=== PATIENT | male | born 1955 | race Caucasian/White ===

== ENCOUNTER → 2017-06-19 15:38 | Outpatient (REF) | payer MEDICARE, SELFPAY ==
[2017-06-19 19:25] LABS: Amphetamine/Metha Screen,Urine Negative ng/mL (<1000); Barbiturates Screen,Urine Negative ng/mL (<200); Benzodiazepines Screen,Urine Negative ng/mL (200); Cannabinoid Screen,Urine Negative ng/mL (<50); Cocaine Screen,Urine Negative ng/g (<300); Methadone Screen,Urine Negative ng/mL (<300); Opiate Screen,Urine Positive ng/mL (<300); Phencyclidine Screen,Urine Negative ng/mL (<25)
== END ==
LOC: LAB 15:38
PROVIDERS: Visit Provider Emergency Medicine
DX: Z79.899 Other long term (current) drug therapy (principal)
CPT/HCPCS: 80305

== ENCOUNTER → 2017-07-17 13:54 | Outpatient (CLI) | payer MEDICARE, SELFPAY ==
[2017-07-17 17:48] LABS: Amphetamine/Metha Screen,Urine Negative ng/mL (<1000); Barbiturates Screen,Urine Negative ng/mL (<200); Benzodiazepines Screen,Urine Negative ng/mL (200); Cannabinoid Screen,Urine Negative ng/mL (<50); Cocaine Screen,Urine Negative ng/g (<300); Methadone Screen,Urine Negative ng/mL (<300); Opiate Screen,Urine Positive ng/mL (<300); Phencyclidine Screen,Urine Negative ng/mL (<25)
== END ==
PROVIDERS: Visit Provider Emergency Medicine
DX: Z79.899 Other long term (current) drug therapy (principal)
CPT/HCPCS: 80305

== ENCOUNTER → 2017-08-14 13:36 | Outpatient (REF) | payer MEDICARE, SELFPAY ==
[2017-08-14 19:03] LABS: Amphetamine/Metha Screen,Urine Negative ng/mL (<1000); Barbiturates Screen,Urine Negative ng/mL (<200); Benzodiazepines Screen,Urine Negative ng/mL (200); Cannabinoid Screen,Urine Negative ng/mL (<50); Cocaine Screen,Urine Negative ng/g (<300); Methadone Screen,Urine Negative ng/mL (<300); Opiate Screen,Urine Positive ng/mL (<300); Phencyclidine Screen,Urine Negative ng/mL (<25)
== END ==
LOC: LAB 13:36
PROVIDERS: Visit Provider Emergency Medicine
DX: Z79.899 Other long term (current) drug therapy (principal)
CPT/HCPCS: 80305

== ENCOUNTER → 2017-09-11 14:58 | Outpatient (REF) | payer MEDICARE, SELFPAY ==
[2017-09-11 19:40] LABS: Amphetamine/Metha Screen,Urine Negative ng/mL (<1000); Barbiturates Screen,Urine Negative ng/mL (<200); Benzodiazepines Screen,Urine Negative ng/mL (200); Cannabinoid Screen,Urine Negative ng/mL (<50); Cocaine Screen,Urine Negative ng/g (<300); Methadone Screen,Urine Negative ng/mL (<300); Opiate Screen,Urine Negative ng/mL (<300); Phencyclidine Screen,Urine Negative ng/mL (<25)
== END ==
LOC: LAB 14:58
PROVIDERS: Visit Provider Emergency Medicine
DX: Z79.899 Other long term (current) drug therapy (principal)
CPT/HCPCS: 80305

== ENCOUNTER → 2017-10-09 08:01 | Outpatient (REF) | payer MEDICARE, SELFPAY ==
[2017-10-09 14:31] LABS: Amphetamine/Metha Screen,Urine Negative ng/mL (<1000); Barbiturates Screen,Urine Negative ng/mL (<200); Benzodiazepines Screen,Urine Negative ng/mL (200); Cannabinoid Screen,Urine Negative ng/mL (<50); Cocaine Screen,Urine Negative ng/g (<300); Methadone Screen,Urine Negative ng/mL (<300); Opiate Screen,Urine Negative ng/mL (<300); Phencyclidine Screen,Urine Negative ng/mL (<25)
== END ==
LOC: LAB 08:01
PROVIDERS: Visit Provider Emergency Medicine
DX: Z79.899 Other long term (current) drug therapy (principal)
CPT/HCPCS: 80305

== ENCOUNTER → 2017-10-29 11:34 | Outpatient (CLI) | payer MEDICARE, SELFPAY ==
--- NOTE | 2017-10-29 11:37 | MR_ITS ---
MR lumbar spine wo con, MR 3-d myelogram/MRCP HISTORY: Low back pain. ITS.REASON: Back Pain ORDERING PHYSICIAN: Adriel Castillo MD PATIENT AGE: 62 years Comparison: MRI 08-23-14 TECHNIQUE: Standard multiplanar multiecho sequences are performed without contrast. 3-D MIP and myelographic images are also rendered and reviewed FINDINGS: There is normal alignment. The spinal cord ends at the L2-L3 level. There is slight reversal of the thoracolumbar kyphosis. Old wedge compression changes involve L1 as before Degenerative disc disease with decrease in the disc space and endplate irregularity is present at T11-T12, T12-L1, and L1-L2. L2-L3: Minimal bulging disc L3-L4: Minimal bulging disc with mild facet and ligamentum flavum hypertrophy with mild bilateral foraminal narrowing. L4-5: Minimal bulging disc along with mild facet and ligamentum flavum hypertrophy with mild bilateral foraminal narrowing. L5-S1: Mild concentric bulging disc along with facet and ligamentum flavum hypertrophy with mild bilateral foraminal narrowing. IMPRESSION: 1. Minimal bulging disc at L3-L4, L4-5, and L5-S1 with mild facet and ligamentous hypertrophy and minimal bilateral foraminal narrowing. Not significantly changed. 2. No canal stenosis or extruded herniated disc. 3. Old wedge compression changes of L1
== END ==
PROVIDERS: Family Provider Emergency Medicine; PCP Emergency Medicine; Visit Provider Emergency Medicine
DX: M54.5 Low back pain (principal)
CPT/HCPCS: 72148; 76376

== ENCOUNTER → 2017-11-06 13:17 | Outpatient (CLI) | payer MEDICARE, SELFPAY ==
[2017-11-06 18:32] LABS: Amphetamine/Metha Screen,Urine Negative ng/mL (<1000); Barbiturates Screen,Urine Negative ng/mL (<200); Benzodiazepines Screen,Urine Negative ng/mL (200); Cannabinoid Screen,Urine Negative ng/mL (<50); Cocaine Screen,Urine Negative ng/g (<300); Methadone Screen,Urine Negative ng/mL (<300); Opiate Screen,Urine Positive ng/mL (<300); Phencyclidine Screen,Urine Negative ng/mL (<25)
== END ==
PROVIDERS: Visit Provider Emergency Medicine
DX: R56.9 Unspecified convulsions (principal)
CPT/HCPCS: 80305

== ENCOUNTER → 2017-12-04 15:29 | Outpatient (REF) | payer MEDICARE, SELFPAY ==
[2017-12-04 17:35] LABS: Amphetamine/Metha Screen,Urine Negative ng/mL (<1000); Barbiturates Screen,Urine Negative ng/mL (<200); Benzodiazepines Screen,Urine Negative ng/mL (<200); Cannabinoid Screen,Urine Negative ng/mL (<50); Cocaine Screen,Urine Negative ng/mL (<300); Methadone Screen,Urine Negative ng/mL (<300); Opiate Screen,Urine Positive ng/mL (<300); Phencyclidine Screen,Urine Negative ng/mL (<25)
== END ==
LOC: LAB 15:29
PROVIDERS: Visit Provider Emergency Medicine
DX: Z79.899 Other long term (current) drug therapy (principal)
CPT/HCPCS: 80305

== ENCOUNTER → 2018-01-01 13:12 | Outpatient (REF) | payer MEDICARE, SELFPAY ==
[2018-01-01 18:50] LABS: Amphetamine/Metha Screen,Urine Negative ng/mL (<1000); Barbiturates Screen,Urine Negative ng/mL (<200); Benzodiazepines Screen,Urine Negative ng/mL (<200); Cannabinoid Screen,Urine Negative ng/mL (<50); Cocaine Screen,Urine Negative ng/mL (<300); Methadone Screen,Urine Negative ng/mL (<300); Opiate Screen,Urine Negative ng/mL (<300); Phencyclidine Screen,Urine Negative ng/mL (<25)
== END ==
LOC: LAB 13:12
PROVIDERS: Visit Provider Emergency Medicine
DX: R56.9 Unspecified convulsions (principal)
CPT/HCPCS: 80305

== ENCOUNTER → 2018-02-02 14:41 | Outpatient (REF) | payer MEDICARE, SELFPAY ==
[2018-02-02 19:38] LABS: Amphetamine/Metha Screen,Urine Negative ng/mL (<1000); Barbiturates Screen,Urine Negative ng/mL (<200); Benzodiazepines Screen,Urine Positive ng/mL (<200); Cannabinoid Screen,Urine Negative ng/mL (<50); Cocaine Screen,Urine Negative ng/mL (<300); Methadone Screen,Urine Negative ng/mL (<300); Opiate Screen,Urine Negative ng/mL (<300); Phencyclidine Screen,Urine Negative ng/mL (<25)
== END ==
LOC: LAB 14:41
PROVIDERS: Visit Provider Emergency Medicine
DX: Z79.899 Other long term (current) drug therapy (principal)
CPT/HCPCS: 80305

== ENCOUNTER → 2018-03-03 13:24 | Outpatient (REF) | payer MEDICARE, SELFPAY ==
[2018-03-03 19:36] LABS: Amphetamine/Metha Screen,Urine Negative ng/mL (<1000); Barbiturates Screen,Urine Negative ng/mL (<200); Benzodiazepines Screen,Urine Negative ng/mL (<200); Cannabinoid Screen,Urine Negative ng/mL (<50); Cocaine Screen,Urine Negative ng/mL (<300); Methadone Screen,Urine Negative ng/mL (<300); Opiate Screen,Urine Negative ng/mL (<300); Phencyclidine Screen,Urine Negative ng/mL (<25)
== END ==
LOC: LAB 13:24
PROVIDERS: Visit Provider Emergency Medicine
DX: Z79.899 Other long term (current) drug therapy (principal)
CPT/HCPCS: 80305

== ENCOUNTER → 2018-04-01 18:25 | Outpatient (CLI) | payer MEDICARE, SELFPAY ==
[2018-04-01 19:49] LABS: Amphetamine/Metha Screen,Urine Negative ng/mL (<1000); Barbiturates Screen,Urine Negative ng/mL (<200); Benzodiazepines Screen,Urine Negative ng/mL (<200); Cannabinoid Screen,Urine Negative ng/mL (<50); Cocaine Screen,Urine Negative ng/mL (<300); Methadone Screen,Urine Negative ng/mL (<300); Opiate Screen,Urine Negative ng/mL (<300); Phencyclidine Screen,Urine Negative ng/mL (<25)
== END ==
PROVIDERS: Visit Provider Emergency Medicine
DX: Z79.899 Other long term (current) drug therapy (principal)
CPT/HCPCS: 80305

== ENCOUNTER → 2018-04-30 18:20 | Outpatient (CLI) | payer MEDICARE, SELFPAY ==
[2018-04-30 19:08] LABS: Amphetamine/Metha Screen,Urine Negative ng/mL (<1000); Barbiturates Screen,Urine Negative ng/mL (<200); Benzodiazepines Screen,Urine Negative ng/mL (<200); Cannabinoid Screen,Urine Negative ng/mL (<50); Cocaine Screen,Urine Negative ng/mL (<300); Methadone Screen,Urine Negative ng/mL (<300); Opiate Screen,Urine Positive ng/mL (<300); Phencyclidine Screen,Urine Negative ng/mL (<25)
== END ==
PROVIDERS: Visit Provider Emergency Medicine
DX: R56.9 Unspecified convulsions (principal)
CPT/HCPCS: 80305

== ENCOUNTER → 2018-05-31 18:35 | Outpatient (CLI) | payer MEDICARE, SELFPAY ==
[2018-05-31 19:44] LABS: Amphetamine/Metha Screen,Urine Negative ng/mL (<1000); Barbiturates Screen,Urine Negative ng/mL (<200); Benzodiazepines Screen,Urine Negative ng/mL (<200); Cannabinoid Screen,Urine Negative ng/mL (<50); Cocaine Screen,Urine Negative ng/mL (<300); Methadone Screen,Urine Negative ng/mL (<300); Opiate Screen,Urine Negative ng/mL (<300); Phencyclidine Screen,Urine Negative ng/mL (<25)
[2018-06-05 06:24] LABS: Opiates Negative ng/mL (Cutoff=100)
== END ==
PROVIDERS: Visit Provider Emergency Medicine
DX: Z79.899 Other long term (current) drug therapy (principal)
CPT/HCPCS: 80305; 80361; G0480

== ENCOUNTER → 2018-07-28 18:58 | Outpatient (CLI) | payer MEDICARE, SELFPAY ==
[2018-07-28 20:32] LABS: Amphetamine/Metha Screen,Urine Negative ng/mL (<1000); Barbiturates Screen,Urine Negative ng/mL (<200); Benzodiazepines Screen,Urine Negative ng/mL (<200); Cannabinoid Screen,Urine Negative ng/mL (<50); Cocaine Screen,Urine Negative ng/mL (<300); Methadone Screen,Urine Negative ng/mL (<300); Opiate Screen,Urine Positive ng/mL (<300); Phencyclidine Screen,Urine Negative ng/mL (<25)
== END ==
PROVIDERS: Visit Provider Emergency Medicine
DX: G89.29 Other chronic pain (principal)
CPT/HCPCS: 80305

== ENCOUNTER → 2018-08-31 17:13 | Outpatient (CLI) | payer MEDICARE, SELFPAY ==
[2018-08-31 20:15] LABS: Amphetamine/Metha Screen,Urine Negative ng/mL (<1000); Barbiturates Screen,Urine Negative ng/mL (<200); Benzodiazepines Screen,Urine Negative ng/mL (<200); Cannabinoid Screen,Urine Negative ng/mL (<50); Cocaine Screen,Urine Negative ng/mL (<300); Methadone Screen,Urine Negative ng/mL (<300); Opiate Screen,Urine Positive ng/mL (<300); Phencyclidine Screen,Urine Negative ng/mL (<25)
== END ==
PROVIDERS: Visit Provider Nurse Practitioner Family
DX: G89.29 Other chronic pain (principal)
CPT/HCPCS: 80305

== ENCOUNTER → 2018-09-27 17:05 | Outpatient (CLI) | payer MEDICARE, SELFPAY ==
[2018-09-27 18:29] LABS: Amphetamine/Metha Screen,Urine Negative ng/mL (<1000); Barbiturates Screen,Urine Negative ng/mL (<200); Benzodiazepines Screen,Urine Negative ng/mL (<200); Cannabinoid Screen,Urine Negative ng/mL (<50); Cocaine Screen,Urine Negative ng/mL (<300); Methadone Screen,Urine Negative ng/mL (<300); Opiate Screen,Urine Positive ng/mL (<300); Phencyclidine Screen,Urine Negative ng/mL (<25)
== END ==
PROVIDERS: Visit Provider Emergency Medicine
DX: G89.29 Other chronic pain (principal)
CPT/HCPCS: 80305

== ENCOUNTER → 2018-11-24 17:07 | Outpatient (CLI) | payer MEDICARE, SELFPAY ==
[2018-11-24 18:23] LABS: Amphetamine/Metha Screen,Urine Negative ng/mL (<1000); Barbiturates Screen,Urine Negative ng/mL (<200); Benzodiazepines Screen,Urine Negative ng/mL (<200); Cannabinoid Screen,Urine Negative ng/mL (<50); Cocaine Screen,Urine Negative ng/mL (<300); Methadone Screen,Urine Negative ng/mL (<300); Opiate Screen,Urine Positive ng/mL (<300); Phencyclidine Screen,Urine Negative ng/mL (<25)
== END ==
PROVIDERS: Visit Provider Emergency Medicine
DX: G89.29 Other chronic pain (principal)
CPT/HCPCS: 80305

== ENCOUNTER → 2019-01-25 16:00 | Outpatient (CLI) | payer MEDICARE, SELFPAY ==
[2019-01-25 19:37] LABS: Amphetamine/Metha Screen,Urine Negative ng/mL (<1000); Barbiturates Screen,Urine Negative ng/mL (<200); Benzodiazepines Screen,Urine Negative ng/mL (<200); Cannabinoid Screen,Urine Negative ng/mL (<50); Cocaine Screen,Urine Negative ng/mL (<300); Methadone Screen,Urine Negative ng/mL (<300); Opiate Screen,Urine Positive ng/mL (<300); Phencyclidine Screen,Urine Negative ng/mL (<25)
== END ==
PROVIDERS: Visit Provider Emergency Medicine
DX: G89.29 Other chronic pain (principal)
CPT/HCPCS: 80305

== ENCOUNTER → 2019-05-16 16:46 | Outpatient (CLI) | payer MEDICARE, SELFPAY ==
[2019-05-16 17:47] LABS: Amphetamine/Metha Screen,Urine Negative ng/mL (<1000); Barbiturates Screen,Urine Negative ng/mL (<200); Benzodiazepines Screen,Urine Positive ng/mL (<200); Cannabinoid Screen,Urine Negative ng/mL (<50); Cocaine Screen,Urine Negative ng/mL (<300); Methadone Screen,Urine Negative ng/mL (<300); Opiate Screen,Urine Positive ng/mL (<300); Phencyclidine Screen,Urine Negative ng/mL (<25)
[2019-05-24 07:10] LABS: Alprazolam Positive (.); Benzodiazepines Positive ng/mL (Cutoff=100); Clonazepam Positive (.); Flurazepam Negative (Cutoff=100); Lorazepam Negative (Cutoff=100); Midazolam Negative (Cutoff=100); Temazepam Negative (Cutoff=100); Triazolam Negative (Cutoff=100)
[2019-05-24 07:16] LABS: Clonazepam Confirm 167 ng/mL (Cutoff=100)
== END ==
PROVIDERS: Visit Provider Emergency Medicine
DX: G89.29 Other chronic pain (principal); Z79.899 Other long term (current) drug therapy
CPT/HCPCS: 80305; 80346

== ENCOUNTER → 2019-06-17 14:39 | Outpatient (CLI) | payer MEDICARE, SELFPAY | LOC: LAB.DROPOF 06-22 14:38 → LAB 06-22 14:39 | PROVIDERS: Visit Provider Emergency Medicine | DX: G89.29 Other chronic pain (principal) ==

== ENCOUNTER → 2019-06-22 14:39 | Outpatient (CLI) | payer MEDICARE, SELFPAY ==
[2019-06-22 18:34] LABS: Amphetamine/Metha Screen,Urine Negative ng/mL (<1000); Barbiturates Screen,Urine Negative ng/mL (<200); Benzodiazepines Screen,Urine Negative ng/mL (<200); Cannabinoid Screen,Urine Negative ng/mL (<50); Cocaine Screen,Urine Negative ng/mL (<300); Methadone Screen,Urine Negative ng/mL (<300); Opiate Screen,Urine Negative ng/mL (<300); Phencyclidine Screen,Urine Negative ng/mL (<25)
== END ==
PROVIDERS: Visit Provider Emergency Medicine
DX: Z79.899 Other long term (current) drug therapy (principal)
CPT/HCPCS: 80305

== ENCOUNTER → 2020-06-20 15:07 | Outpatient (CLI) | payer MEDICARE, SELFPAY ==
--- NOTE | 2020-06-20 15:16 | CT_ITS ---
PROCEDURE: CT LUNG SCREENING CLINICAL INDICATION: screening Current smoker 55 pack year smoking history No prior COMPARISON: MR SPLUMBWO MR lumbar spine wo con from 10/29/2017 TECHNIQUE: The exam was performed on a GE K1 Speed Speed [address] scanner using 2.90 mGy CTDI. A low dose helical CT CHEST was performed on a multi-detector scanner. All CT scans at the facility use one or more dose reduction, viz: automated exposure control, ma/kV adjustment per patient size (including targeted exams where dose is matched to indication, i.e. head), or iterative reconstruction technique. The LDCT was performed in a facility that meets the criteria for the screening program. Data regarding this exam was submitted to ACR which is an approved registry. The order for this exam indicates that it came as a result of a lung cancer screening counseling shard decision-making visit that included all the elements required of such a visit including smoking cessation. The radiologist interpreting this exam meets the CMS criteria for the LDCT lung cancer screening program. The exam is reported using the Lung-RADS classification scale and reported to the ACR registry. NOTE: This study was performed for the specific purposes of lung cancer screening and is not an alternative to diagnostic chest CT. RADIATION DOSE: CTDI vol(CT dose Index-volume) = 2.90mG DLP (Dose Length Product) = 107.33 mGcm FINDINGS: COPD. Biapical blebs with scarring. Subpleural interlobular septal thickening with some minimal nodularity in the upper lobes consistent with developing pulmonary fibrosis with some scarring. Old granulomatous disease. Centrilobular emphysema in the lower lobes . There is mild diffuse bronchial thickening. There are mild pulmonary fibrotic changes in the lung bases. OTHER FINDINGS: Coronary artery calcification. Mild gynecomastia. There is mild wedging of L1 which appears chronic and was present on 10/29/2017 MRI. IMPRESSION: Lung-RADS Category 1 Negative Follow-up: Continue annual screening with LDCT in 12 months COPD with centrilobular emphysema and scattered areas of pulmonary fibrosis. Dictated by: Rhett Anderson MD 06/25/2020 07:25 Rhett Anderson MD in [place] 06/25/2020 07:25
== END ==
PROVIDERS: PCP Emergency Medicine; Visit Provider Emergency Medicine
DX: Z87.891 Personal history of nicotine dependence (principal); Z12.2 Encounter for screening for malignant neoplasm of respiratory organs
CPT/HCPCS: 71271

== ENCOUNTER → 2020-08-29 14:11 | Outpatient (CLI) | payer MEDICARE, SELFPAY ==
[2020-08-29 15:33] LABS: Amphetamine/Metha Screen,Urine Negative ng/ml (<1000); Barbiturates Screen,Urine Negative ng/ml (<200)
[2020-08-29 15:34] LABS: Benzodiazepines Screen,Urine Negative ng/ml (<200); Cannabinoid Screen,Urine Negative ng/ml (<50)
[2020-08-29 15:36] LABS: Cocaine Screen,Urine Negative ng/ml (<300); Methadone Screen,Urine Negative ng/ml (<300)
[2020-08-29 15:37] LABS: Opiate Screen,Urine Positive ng/ml (<300)
[2020-08-29 16:41] LABS: Phencyclidine Screen,Urine Positive ng/ml (<25)
== END ==
PROVIDERS: Visit Provider Emergency Medicine
DX: G89.29 Other chronic pain (principal)
CPT/HCPCS: 80305

== ENCOUNTER → 2020-10-29 17:44 | Outpatient (CLI) | payer MEDICARE, SELFPAY ==
[2020-10-29 19:34] LABS: Benzodiazepines Screen,Urine Negative ng/ml (<200)
[2020-10-29 19:35] LABS: Amphetamine/Metha Screen,Urine Negative ng/ml (<1000)
[2020-10-29 19:36] LABS: Barbiturates Screen,Urine Negative ng/ml (<200); Cannabinoid Screen,Urine Negative ng/ml (<50)
[2020-10-29 19:37] LABS: Cocaine Screen,Urine Negative ng/ml (<300)
[2020-10-29 19:38] LABS: Methadone Screen,Urine Negative ng/ml (<300); Opiate Screen,Urine Positive ng/ml (<300)
[2020-10-29 19:39] LABS: Phencyclidine Screen,Urine Negative ng/ml (<25)
== END ==
PROVIDERS: Visit Provider Emergency Medicine
DX: G89.29 Other chronic pain (principal)
CPT/HCPCS: 80305

== ENCOUNTER 2020-11-07 23:04 | Emergency (ER) | payer MEDICARE, SELFPAY ==
[2020-11-07 23:05] VITALS: BP 108/80; PULSE 100; RESP 16; TEMP 36.5; O2SAT 100; BMI 18.8
--- NOTE | 2020-11-07 23:16 | XR_ITS ---
PROCEDURE INFORMATION: Exam: XR Chest Exam date and time: 11/07/2020 11:16 PM Age: 65 years old Clinical indication: Injury or trauma; Fall; Blunt trauma (contusions or hematomas) TECHNIQUE: Imaging protocol: XR of the chest. Views: 1 view. COMPARISON: CR CXR1 CHEST-PORTABLE 03/26/2016 12:49 PM FINDINGS: Lungs: Right parenchymal calcified granulomas. Lungs are otherwise clear. No focal consolidations. Pleural spaces: Unremarkable. No pleural effusion. No pneumothorax. Heart/Mediastinum: Unremarkable. No cardiomegaly. Bones/joints: Unremarkable. Other findings: Calcified bilateral hilar nodes. IMPRESSION: No acute cardiopulmonary findings.
--- NOTE | 2020-11-07 23:16 | CT_ITS ---
PROCEDURE INFORMATION: Exam: CT Head Without Contrast Exam date and time: 11/07/2020 11:16 PM Age: 65 years old Clinical indication: Injury or trauma; Fall; Blunt trauma (contusions or hematomas); Without loss of consciousness; Additional info: Fall with head injury TECHNIQUE: Imaging protocol: Computed tomography of the head without contrast. Radiation optimization: All CT scans at this facility use at least one of these dose optimization techniques: automated exposure control; mA and/or kV adjustment per patient size (includes targeted exams where dose is matched to clinical indication); or iterative reconstruction. COMPARISON: [facility] CT HEAD W/O CONTRAST 03/09/2015 12:40 AM FINDINGS: Brain: No intracranial hemorrhage. No midline shift or mass effect appreciated. There is global parenchymal volume loss, typically on an age-related basis. Encephalomalacia noted in the right MCA distribution, similar to prior study. There is heterogeneity of the white matter attenuation noted, consistent with chronic white matter ischemic changes. The stephens-white matter differentiation is otherwise unremarkable. No evidence of evolved territorial infarct or cerebral edema. Cerebral ventricles: Prominent ventricles likely secondary to cerebral volume loss. Paranasal sinuses: Visualized sinuses are unremarkable. No fluid levels. Mastoid air cells: Visualized mastoid air cells are well aerated. Orbital cavity: Soft tissue density noted within the left globe posteriorly, similar to prior study dated 03/09/2015. Clinical correlation requested. Bones/joints: Age-indeterminate nasal fracture noted. Clinical correlation for point tenderness to exclude acuity may be helpful. Soft tissues: Unremarkable. IMPRESSION: 1. No acute intracranial process noted. 2. Age-related and chronic changes seen, as above. 3. Age-indeterminate nasal fracture noted. Clinical correlation for point tenderness to exclude acuity may be helpful. 4. Soft tissue density noted within the left globe posteriorly, similar to prior study dated 03/09/2015. Clinical correlation requested.
--- NOTE | 2020-11-07 23:16 | CT_ITS ---
PROCEDURE INFORMATION: Exam: CT Cervical Spine Without Contrast Exam date and time: 11/07/2020 11:16 PM Age: 65 years old Clinical indication: Neck pain; Patient HX: Fall; Additional info: Fall with head injury TECHNIQUE: Imaging protocol: Computed tomography images of the cervical spine without contrast. Radiation optimization: All CT scans at this facility use at least one of these dose optimization techniques: automated exposure control; mA and/or kV adjustment per patient size (includes targeted exams where dose is matched to clinical indication); or iterative reconstruction. COMPARISON: CR CS5 CERVICAL SPINE 4 OR 5 VIEWS 05/10/2015 11:09 PM FINDINGS: Bones/joints: No acute fracture. Normal alignment. Atlantodental interval is preserved. Degenerative changes are noted at C1-C2. Discs/Spinal canal/Neural foramina: No significant spinal stenosis. Multilevel changes of the spine demonstrated including spondylosis and degenerative disc disease with varying degrees neural foraminal narrowing, worst at C5-C6 on the left where there is moderate to severe narrowing. Lungs: Biapical pleural-parenchymal thickening/scarring and paraseptal cysts noted. Soft tissues: Unremarkable. IMPRESSION: No acute fracture or subluxation.
--- NOTE | 2020-11-07 23:16 | XR_ITS ---
PROCEDURE INFORMATION: Exam: XR Pelvis Exam date and time: 11/07/2020 11:16 PM Age: 65 years old Clinical indication: Pelvic pain; Patient HX: Fall TECHNIQUE: Imaging protocol: XR pelvis. Views: 1 or 2 view. COMPARISON: CR [id number] HIP RT 2-3V W/PELVIS IF PERFOR 09/14/2016 8:48 PM FINDINGS: Bones/joints: Diffuse osteopenia. No acute fracture or dislocation. Mild arthritic changes in bilateral SI and hip joints. Soft tissues: Unremarkable. Vasculature: Vascular calcifications are present. IMPRESSION: No acute fracture or dislocation.
[2020-11-08] VITALS: BP 141/89; PULSE 95; O2SAT 99
[2020-11-08 00:30] VITALS: BP 136/90; PULSE 92; O2SAT 100
[2020-11-08 01:00] VITALS: BP 144/96; PULSE 92; O2SAT 97
--- NOTE | 2020-11-08 01:13 | HMH.EDFALL ---
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 The time I documented below is in addition to time spent performing reported procedures but includes the following listed in this critical care notation. Medical Decision Making - Medical Records Medical records reviewed: Yes: I reviewed the patient's medical records. - Matt Inquiry Pt receiving controlled substance: No Vital Signs: 11/07/20 23:05 11/08/20 00:00 11/08/20 00:30 Temperature 97.7 F Temperature Source Oral Pulse Rate 95 H 92 H Pulse Rate [Right] 100 H Respiratory Rate 16 Blood Pressure 141/89 H 136/90 Blood Pressure [Right Arm] 108/80 L Blood Pressure Mean [Right Arm] 89 Blood Pressure Source [Right Arm] Automatic Cuff Blood Pressure Position [Right Arm] Supine 02 Sat by Pulse Oximetry 100 99 100 Oxygen Delivery Method Room Air 11/08/20 01:00 Temperature Temperature Source Pulse Rate 92 H Pulse Rate [Right] Respiratory Rate Blood Pressure 144/96 H Blood Pressure [Right Arm] Blood Pressure Mean [Right Arm] Blood Pressure Source [Right Arm] Blood Pressure Position [Right Arm] 02 Sat by Pulse Oximetry 97 Oxygen Delivery Method Medical Decision Narrative: fall with no acute changes on xray and stable exam Fall HPI - General Chief Complaint: Fall Stated Complaint: fall Time Seen by Provider: 11/08/20 00:00 Mode of Arrival: EMS Source of Information: Patient, Significant Other, EMS, Medical Record Limitations: No Limitations Description of Symptoms (Recalled from ER Triage Doc. by RN): Pt states he fell earlier today and hit his head with out LOC, pt denies any injury . pt has no obvious injury on arrival. - History of Present Illness HPI Narrative: fell at home with no def loc and thinks it maybe new med - no fever or chest pain - MD complaint: fall Onset (ago): hour(s) Fall from: standing Fall witnessed: no Place fall occurred: home Loss of consciousness: unsure Prolonged down time: no Context: tripped/slipped Location of injury: head, neck Severity: moderate Associated symptoms (after fall): denies - Related Data Previous Rx's Medication Instructions Recorded albuterol sulfate 90 mcg/actuation 1 inh INHALATION QID PRN #8.5 g 07/02/20 aerosol inhaler carvedilol 6.25 mg tablet See Rx Instructions .ROUTE 08/29/20 .COMPLEX #60 tab lisinopril 10 mg tablet See Rx Instructions .ROUTE 09/21/20 .COMPLEX #180 tab rosuvastatin 10 mg tablet See Rx Instructions .ROUTE 09/21/20 .COMPLEX #90 tab topiramate 25 mg tablet See Rx Instructions .ROUTE 09/21/20 .COMPLEX #30 tab levetiracetam 500 mg tablet See Rx Instructions .ROUTE 10/18/20 .COMPLEX #180 tab sumatriptan succinate 25 mg tablet See Rx Instructions .ROUTE 10/24/20 .COMPLEX #9 each bupropion HCl 75 mg tablet 75 mg PO BID #60 tab 10/29/20 diazepam 5 mg tablet 5 mg PO BID PRN #60 tab 10/29/20 gabapentin 600 mg tablet 600 mg PO TID #90 tab 10/29/20 hydrocodone 5 mg-acetaminophen 325
[2020-11-08 01:32] VITALS: BP 122/83; PULSE 89; RESP 18; TEMP 36.5; O2SAT 100
== END 2020-11-08 01:34 | disposition home or self-care (01) ==
PROVIDERS: Emergency Provider Emergency Medicine
DX: S06.0X0A Concussion without loss of consciousness, initial encounter (principal); W01.0XXA Fall on same level from slipping, tripping and stumbling without subsequent striking against object, initial encounter; Y92.019 Unspecified place in single-family (private) house as the place of occurrence of the external cause; H54.40 Blindness, one eye, unspecified eye; I10 Essential (primary) hypertension; E78.5 Hyperlipidemia, unspecified; Z79.899 Other long term (current) drug therapy; R51.9 Headache, unspecified
CPT/HCPCS: 70450; 71045; 72125; 72170; 99282

== ENCOUNTER → 2020-12-26 17:42 | Outpatient (CLI) | payer MEDICARE, SELFPAY ==
[2020-12-26 19:03] LABS: Basophils # 0.3 K/mm3 (0-0.2); Basophils % 2.3 % (0.1-2.0); Eosinophils # 0.2 K/mm3 (0.0-0.4); Hematocrit 46.2 % (42.0-52.0); Hemoglobin 14.9 g/dL (14.1-18.0); Lymphocytes # 2.9 K/mm3 (0.7-4.5); Lymphocytes % 27.6 % (10-50); Mean Corpuscular HGB Conc 32.2 g/dL (31.8-35.4); Mean Corpuscular Hemoglobin 33.2 pg (27.0-31.2); Mean Corpuscular Volume 103.2 fl (80-94); Mean Platelet Volume 8.5 fl (7.4-10.4); Monocytes # 0.5 K/mm3 (0.1-1.0); Monocytes % 4.6 % (1.7-9.3); Neutrophils # 6.7 K/mm3 (1.8-7.8); Neutrophils % 63.4 % (37.0-80.0); Platelet Count 300 K/mm3 (142-424); Red Blood Count 4.47 M/mm3 (4.60-6.20); Red Cell Distribution Width 14.6 % (11.5-17.5); White Blood Count 10.6 K/mm3 (4.8-10.8)
[2020-12-26 19:13] LABS: Alanine Aminotransferase 17 U/L (12-78); Albumin/Globulin Ratio 1.4 (1.1-1.8); Alkaline Phosphatase 102 U/L (38-126); Anion Gap 20.8 mEq/L (5-15); Aspartate Amino Transferase 31 U/L (17-59); Bilirubin,Total 0.6 mg/dl (0.2-1.3); Blood Urea Nitrogen 25 mg/dl (9-20); Calcium 9.8 mg/dl (8.4-10.2); Carbon Dioxide 16 mmol/L (22.0-30.0); Chloride 108 mmol/L (98-107); Estimated Glomerular Filt Rate 55 ml/min (>60); GFR (African American) 67 ML/MIN (>60); Globulin 3.6 g/dL (1.3-3.2); Glucose 109 mg/dl (74-100); Potassium 4.8 mmoL/L (3.5-5.1); Sodium 140 mmol/L (136-145); Total Protein,Serum 8.6 g/dl (6.3-8.2)
[2020-12-26 19:20] LABS: C-Reactive Protein 0.9 mg/L (0-4)
[2020-12-26 19:32] LABS: Free T4 (Free Thyroxine) 0.78 ng/dl (0.78-2.19)
[2020-12-26 19:42] LABS: 25-OH Vitamin D, Total < 12.8 ng/mL (30-100)
[2020-12-26 19:44] LABS: Prostate Specific Ag Screen 0.4 ng/ml (0.0-4.0); Thyroid Stimulating Hormone 1.25 uIU/mL (0.465-4.68)
[2020-12-26 19:46] LABS: Amphetamine/Metha Screen,Urine Negative ng/ml (<1000)
[2020-12-26 19:47] LABS: Barbiturates Screen,Urine Negative ng/ml (<200); Benzodiazepines Screen,Urine Positive ng/ml (<200)
[2020-12-26 19:49] LABS: Cocaine Screen,Urine Negative ng/ml (<300); Methadone Screen,Urine Negative ng/ml (<300)
[2020-12-26 19:49] LABS: Erythrocyte Sedimentation Rate 21 mm/hr (0-20)
[2020-12-26 19:50] LABS: Opiate Screen,Urine Positive ng/ml (<300)
[2020-12-26 19:51] LABS: Phencyclidine Screen,Urine Negative ng/ml (<25)
[2020-12-26 22:32] LABS: Cannabinoid Screen,Urine Negative ng/ml (<50)
[2020-12-28 10:19] LABS: Hep A Ab, IgM Negative (Negative); Hepatitis B Core Antibody IgM Negative (Negative); Hepatitis B Surface Antigen Negative (Negative); Hepatitis C Antibody <0.1 s/co ratio (0.0-0.9)
== END ==
PROVIDERS: Visit Provider Emergency Medicine
DX: G89.29 Other chronic pain (principal); I10 Essential (primary) hypertension; E55.9 Vitamin D deficiency, unspecified; Z12.5 Encounter for screening for malignant neoplasm of prostate; R53.83 Other fatigue
CPT/HCPCS: 80053; 80074; 80305; 82306; 84439; 84443; 85025; 85651; 86140; G0103

== ENCOUNTER → 2021-02-25 13:33 | Outpatient (CLI) | payer MEDICARE, SELFPAY ==
[2021-02-25 15:21] LABS: Amphetamine/Metha Screen,Urine Negative ng/ml (<1000); Benzodiazepines Screen,Urine Negative ng/ml (<200)
[2021-02-25 15:22] LABS: Barbiturates Screen,Urine Negative ng/ml (<200)
[2021-02-25 15:23] LABS: Cannabinoid Screen,Urine Negative ng/ml (<50); Cocaine Screen,Urine Negative ng/ml (<300)
[2021-02-25 15:24] LABS: Methadone Screen,Urine Negative ng/ml (<300)
[2021-02-25 15:25] LABS: Opiate Screen,Urine Negative ng/ml (<300); Phencyclidine Screen,Urine Negative ng/ml (<25)
== END ==
PROVIDERS: Visit Provider Emergency Medicine
DX: G89.29 Other chronic pain (principal)
CPT/HCPCS: 80305

== ENCOUNTER → 2021-04-16 10:41 | Outpatient (CLI) | payer MEDICARE, SELFPAY | PROVIDERS: PCP Emergency Medicine; Visit Provider Physician Assistant | DX: R07.9 Chest pain, unspecified (principal) | CPT/HCPCS: 93306 ==

== ENCOUNTER → 2021-04-29 14:50 | Outpatient (CLI) | payer MEDICARE, SELFPAY ==
[2021-04-29 16:30] LABS: Amphetamine/Metha Screen,Urine Negative ng/ml (<1000)
[2021-04-29 16:32] LABS: Barbiturates Screen,Urine Negative ng/ml (<200); Benzodiazepines Screen,Urine Negative ng/ml (<200)
[2021-04-29 16:33] LABS: Cannabinoid Screen,Urine Negative ng/ml (<50)
[2021-04-29 16:34] LABS: Cocaine Screen,Urine Negative ng/ml (<300); Methadone Screen,Urine Negative ng/ml (<300)
[2021-04-29 16:35] LABS: Opiate Screen,Urine Positive ng/ml (<300); Phencyclidine Screen,Urine Negative ng/ml (<25)
== END ==
PROVIDERS: Visit Provider Emergency Medicine
DX: G89.29 Other chronic pain (principal)
CPT/HCPCS: 80305

== ENCOUNTER → 2021-06-26 17:59 | Outpatient (CLI) | payer MEDICARE, SELFPAY ==
[2021-06-26 17:27] LABS: Barbiturates Screen,Urine Negative ng/ml (<200); Benzodiazepines Screen,Urine Negative ng/ml (<200)
[2021-06-26 17:28] LABS: Amphetamine/Metha Screen,Urine Negative ng/ml (<1000)
[2021-06-26 17:29] LABS: Cannabinoid Screen,Urine Negative ng/ml (<50); Methadone Screen,Urine Negative ng/ml (<300)
[2021-06-26 17:30] LABS: Cocaine Screen,Urine Negative ng/ml (<300); Opiate Screen,Urine Positive ng/ml (<300)
[2021-06-26 17:31] LABS: Phencyclidine Screen,Urine Negative ng/ml (<25)
== END ==
PROVIDERS: Visit Provider Emergency Medicine
DX: G89.29 Other chronic pain (principal)
CPT/HCPCS: 80305

== ENCOUNTER → 2021-10-15 15:34 | Outpatient (CLI) | payer MEDICARE, SELFPAY ==
[2021-10-15 18:41] LABS: Amphetamine/Metha Screen,Urine Negative ng/ml (<1000); Barbiturates Screen,Urine Negative ng/ml (<200)
[2021-10-15 18:42] LABS: Benzodiazepines Screen,Urine Positive ng/ml (<200)
[2021-10-15 18:43] LABS: Cannabinoid Screen,Urine Negative ng/ml (<50); Cocaine Screen,Urine Negative ng/ml (<300)
[2021-10-15 18:44] LABS: Methadone Screen,Urine Negative ng/ml (<300); Opiate Screen,Urine Positive ng/ml (<300)
[2021-10-15 18:45] LABS: Phencyclidine Screen,Urine Negative ng/ml (<25)
== END ==
PROVIDERS: PCP Emergency Medicine; Visit Provider Emergency Medicine
DX: Z79.899 Other long term (current) drug therapy (principal)
CPT/HCPCS: 80305

== ENCOUNTER 2021-10-29 11:33 | Inpatient (IN) | payer MEDICARE, SELFPAY ==
[2021-10-29] VITALS (28 sets, daily range): BP systolic 102–139; BP diastolic 63–95; PULSE 81–108; RESP 14–17; TEMP 36.6–36.8; O2SAT 96–99; BMI 19.9; BMI 16.6
--- NOTE | 2021-10-29 11:46 | CT_ITS ---
FINAL REPORT CLINICAL HISTORY: fall, confuaion COMPARISON: November 07, 2020 FINDINGS: Axial images of the head were obtained without contrast. Coronal reformatted images were also obtained. This study was performed with techniques to keep radiation doses as low as reasonably achievable (ALARA). Individualized dose reduction techniques using automated exposure control or adjustment of mA and/or kV according to the patient's size were employed. There is generalized age-appropriate atrophy. Periventricular low-attenuation areas are seen consistent with mild chronic ischemic changes. There are bilateral frontal areas of encephalomalacia, right greater than left, stable. There is no evidence of intracranial hemorrhage or mass. There is no evidence of acute infarct. There is no evidence of shift of the midline structures. There are postoperative changes of the left orbit. IMPRESSION: Atrophy and mild periventricular chronic ischemic changes. No acute intracranial abnormality identified. Reviewed, Interpreted and Dictated by oJsue Lazo III, MD Transcribed by Fern Meade Authenticated and [facility]
--- NOTE | 2021-10-29 11:46 | XR_ITS ---
FINAL REPORT CLINICAL HISTORY: fall/pain COMPARISON: 09/14/2016 FINDINGS: RIGHT HIP Three views were obtained. There is a right femoral neck fracture with coxa vera deformity. No dislocation is identified. Mild degenerative changes are present. There is moderate vascular calcification. IMPRESSION: Right femoral neck fracture. Reviewed, Interpreted and Dictated by Josue Lazo III, MD Transcribed by Marcela Pantoja Authenticated and [facility]
--- NOTE | 2021-10-29 11:46 | CT_ITS ---
FINAL REPORT CLINICAL HISTORY: fall, confuaion COMPARISON: November 07, 2020 FINDINGS: Axial CT images of the cervical spine were obtained without contrast. Sagittal and coronal reformatted images were also obtained. This study was performed with techniques to keep radiation doses as low as reasonably achievable (ALARA). Individualized dose reduction techniques using automated exposure control or adjustment of mA and/or kV according to the patient's size were employed. There is no evidence of fracture or dislocation. There is mild retrolisthesis of C2 on C3. There is mild degenerative change. There is no significant canal stenosis. No paraspinous soft tissue abnormality is seen. Limited images of the upper thorax are unremarkable. IMPRESSION: Mild degenerative change with no fracture or acute bony abnormality identified. Reviewed, Interpreted and Dictated by Josue Lazo III, MD Transcribed by Fern Meade Authenticated and [facility]
--- NOTE | 2021-10-29 11:47 | HMH.EDFALL ---
ED Disposition Clinical Impression: Dehydration Closed right hip fracture Qualifiers: Encounter type: initial encounter Qualified Code(s): S72.001A - Fracture of unspecified part of neck of right femur, initial encounter for closed fracture Disposition: Admitted As Inpatient Condition on Discharge: Good Referrals: Adriel Castillo MD [Primary Care Provider] - - Critical Care Critical Care Time: No Attestation: On 10/29/21, the high probability of a clinically significant, sudden or life threatening deterioration of the following system(s) required my full and direct attention, intervention and personal management. The time I documented below is in addition to time spent performing reported procedures but includes the following listed in this critical care notation. Medical Decision Making - Medical Records Medical records reviewed: Yes: I reviewed the patient's medical records. - Matt Inquiry Pt receiving controlled substance: No Vital Signs: 10/29/21 11:32 10/29/21 11:40 10/29/21 11:50 Temperature 98.0 F Temperature Source Oral Pulse Rate 103 H 103 H Pulse Rate [Right Radial] 108 H Respiratory Rate 17 16 Blood Pressure 129/84 125/89 Blood Pressure [Right Arm] 139/84 Blood Pressure Mean 99 97 Blood Pressure Mean [Right Arm] 102 Blood Pressure Source [Right Arm] Automatic Cuff Blood Pressure Position [Right Arm] Sitting 02 Sat by Pulse Oximetry 98 99 96 Oxygen Delivery Method Room Air Room Air Room Air 10/29/21 12:40 10/29/21 13:10 10/29/21 13:40 Temperature Temperature Source Pulse Rate 93 H 93 H 93 H Pulse Rate [Right Radial] Respiratory Rate 16 14 14 Blood Pressure 106/77 L 102/67 L 135/82 Blood Pressure [Right Arm] Blood Pressure Mean 86 74 99 Blood Pressure Mean [Right Arm] Blood Pressure Source [Right Arm] Blood Pressure Position [Right Arm] 02 Sat by Pulse Oximetry 98 99 99 Oxygen Delivery Method Room Air Room Air Room Air - Lab Data Lab Results 10/29/21 12:54: WBC 18.9 H, RBC 3.36 L, Hgb 11.7 L, Hct 34.8 L, MCV 103.6 H, MCH 34.7 H, MCHC 33.5, RDW 13.1, Plt Count 405, MPV 8.3, Neut % (Auto) 88.6 H, Lymph % (Auto) 6.4 L, [place] % (Auto) 3.7, Eos % (Auto) 0.1, Baso % (Auto) 1.2, Neut # (Auto) 16.8 H, Lymph # (Auto) 1.2, [place] # (Auto) 0.7, Eos # (Auto) 0.0, Baso # (Auto) 0.2, Total Counted 100, Neutrophils % (Manual) 87 H, Band Neutrophils % 1.0, Lymphocytes % (Manual) 9 L, Monocytes % (Manual) 3, Platelet Estimate Normal, Macrocytosis 1+ 10/29/21 12:54: Sodium 141, Potassium 4.3, Chloride 106, Carbon Dioxide 26, Anion Gap 13.3, BUN 49 H, Creatinine 0.90, Estimated Creat Clear 63, Estimated GFR 84, Est GFR ( Amer) 102, Glucose 186 H, Calcium 9.8, Total Bilirubin 0.5, AST 108 H, ALT 76, Alkaline Phosphatase 122, Total Protein 8.2, Albumin 4.2, Globulin 4.0 H, Albumin/Globulin Ratio 1.1 Result diagrams: 10/29/21 12:54 10/29/21 12:54 Orders (Tests/Meds): ED MEDICATIONS Generic Name Dose Route Start Last Admin Trade Name Freq PRN Reason Stop Dose Admin Ceftriaxone Sodium 1 gm/ 50 mls @ 100 mls/hr 10/29/21 13:45 Sodium Chloride IV 11/12/21 13:44 Q24H TORIN Discontinued Medications Generic Name Dose Route Start Last Admin Trade Name Freq PRN Reason Stop Dose Admin Sodium Chloride 1,000 mls @ 999 mls/hr 10/29/21 12:00 Sod Chlor 0.9% 1000ml Bag IV 10/29/21 13:00 .Q1H1M TORIN ORDERS Category Date Time Status XR chest portable Stat Exams 10/29/21 13:42 Taken Lactic Acid Stat Lab 10/29/21 13:44 Ordered Urinalysis and Microscopic Stat Lab 10/29/21 11:46 Ordered Blood Culture Stat Micro 10/29/21 13:44 Ordered - ECG Data Tracing #1 I reviewed this ECG and interpreted as documented below: ekg by me nsr, lae, no st elev Fall HPI - General Stated Complaint: Fall; Lethargy Time Seen by Provider: 10/29/21 11:47 Source of Information: Patient, Relative - History of Present Illness HPI Na
--- NOTE | 2021-10-29 12:14 | PC.NURSE ---
Pt returned from rad
--- NOTE | 2021-10-29 12:28 | PC.NURSE ---
IV access obtained. Unable to obtain blood. Lab is going to come down and attempt to draw.
--- NOTE | 2021-10-29 12:30 | ECG_ITS ---
APPROVED REPORT Exam: Resting ECG HR:98 bpm ECG Measurements Heart Rate 98 AXES WI 140 P 69 QRSd 89 QRS 37 QT 343 T 50 QTc 398 Conclusion SINUS RHYTHM LEFT ATRIAL ENLARGEMENT [-0.15mV P-WAVE IN V1/V2] POSSIBLE RIGHT VENTRICULAR CONDUCTION DELAY [RSR (QR) IN V1/V2] ABNORMAL ECG UNCONFIRMED REPORT Electronically signed by : Naveen Beatty MD 10/29/2021 18:39:55
--- NOTE | 2021-10-29 12:47 | PC.NURSE ---
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
--- NOTE | 2021-10-29 12:50 | PC.NURSE ---
Lab at bedside
[2021-10-29 13:29] LABS: Basophils # 0.2 K/mm3 (0-0.2); Basophils % 1.2 % (0.1-2.0); Eosinophils % 0.1 % (0.1-12.0); Hematocrit 34.8 % (42.0-52.0); Hemoglobin 11.7 g/dL (14.1-18.0); Lymphocytes # 1.2 K/mm3 (0.7-4.5); Lymphocytes % 6.4 % (10-50); Mean Corpuscular HGB Conc 33.5 g/dL (31.8-35.4); Mean Corpuscular Hemoglobin 34.7 pg (27.0-31.2); Mean Corpuscular Volume 103.6 fl (80-94); Mean Platelet Volume 8.3 fl (7.4-10.4); Monocytes # 0.7 K/mm3 (0.1-1.0); Monocytes % 3.7 % (1.7-9.3); Neutrophils # 16.8 K/mm3 (1.8-7.8); Neutrophils % 88.6 % (37.0-80.0); Platelet Count 405 K/mm3 (142-424); Red Blood Count 3.36 M/mm3 (4.60-6.20); Red Cell Distribution Width 13.1 % (11.5-17.5); White Blood Count 18.9 K/mm3 (4.8-10.8)
[2021-10-29 13:30] LABS: MANUAL DIFFERENTIAL MANUAL DIFFERENTIAL (MANUAL DIFF)
--- NOTE | 2021-10-29 13:31 | PC.NURSE ---
checked on pt at this time, pt sleeping, will continue to monitor
[2021-10-29 13:32] LABS: Chloride 106 mmol/L (98-107); Sodium 141 mmol/L (136-145)
[2021-10-29 13:33] LABS: Potassium 4.3 mmoL/L (3.5-5.1)
[2021-10-29 13:35] LABS: Alanine Aminotransferase 76 U/L (12-78); Albumin Level 4.2 g/dl (3.5-5.0); Albumin/Globulin Ratio 1.1 (1.1-1.8); Alkaline Phosphatase 122 U/L (38-126); Anion Gap 13.3 mEq/L (5-15); Aspartate Amino Transferase 108 U/L (17-59); Bilirubin,Total 0.5 mg/dl (0.2-1.3); Blood Urea Nitrogen 49 mg/dl (9-20); Calcium 9.8 mg/dl (8.4-10.2); Carbon Dioxide 26 mmol/L (22.0-30.0); Creatinine Clearance Estimated 63 mL/min (50-200); Estimated Glomerular Filt Rate 84 ml/min (>60); GFR (African American) 102 ML/MIN (>60); Glucose 186 mg/dl (74-100); Total Protein,Serum 8.2 g/dl (6.3-8.2)
--- NOTE | 2021-10-29 13:42 | XR_ITS ---
FINAL REPORT CLINICAL HISTORY: weakness COMPARISON: November 07, 2020 FINDINGS: A single portable view of the chest was obtained. The heart size and pulmonary vascularity are within normal limits. The mediastinum is within normal limits. There is mild bibasilar atelectasis. There is mild biapical pleural thickening. The bony thorax is intact. IMPRESSION: Mild bibasilar atelectasis. Mild biapical pleural thickening. Reviewed, Interpreted and Dictated by Josue Lazo III, MD Transcribed by Fern Meade Authenticated and . [facility]
[2021-10-29 13:43] LABS: Lymphocytes % 9 % (10-50); Monocytes % 3 % (2-9); Neutrophils % 87 % (42-76); Platelet Estimate Normal; Total Cells Counted 100
[2021-10-29 13:44] LABS: Macrocytosis 1+
--- NOTE | 2021-10-29 13:51 | PC.NURSE ---
paged Dr carlisle [phone]
--- NOTE | 2021-10-29 13:52 | PC.NURSE ---
rad at BS for portable xray
--- NOTE | 2021-10-29 14:34 | PC.NURSE ---
obtained covid swab
[2021-10-29 14:56] LABS: Lactic Acid 1.5 mmol/L (0.7-2.1)
[2021-10-29 14:59] LABS: Coronavirus 19, PCR Not Detected (NotDetected); Influenza A, PCR Not Detected (NotDetected); Influenza B, PCR Not Detected (NotDetected)
--- NOTE | 2021-10-29 15:06 | PC.NURSE ---
pgd maylin at his office again [phone]
--- NOTE | 2021-10-29 15:20 | PC.NURSE ---
AKUA ARCE speaking with Dr. Castillo
--- NOTE | 2021-10-29 15:35 | PC.NURSE ---
called care management for admission
--- NOTE | 2021-10-29 16:15 | PC.NURSE ---
contacted lab to check on status of covid swab, spoke with keesha in lab, states there was a swab in front this pts so this pt is going on the analyzer now
--- NOTE | 2021-10-29 18:12 | PC.NURSE ---
Called report to DARIUS Smith
--- NOTE | 2021-10-29 18:47 | PC.NURSE ---
pt arrived to the floor at this time
--- NOTE | 2021-10-29 20:33 | HMH.HP ---
*Admission Date: 10/29/21 *Chief complaint: hip fx *History of present illness: this patient presented to the [facility] ed -pt fell with acute rt hip pain and was found to have hip fx and was admitted for surg eval and treatment - pt reported trip type injury [facility] [place] History I have reviewed the patient's past medical history: Yes Medical History: Reports:: Anxiety, Hyperlipidemia, Hypertension, Seizures Denies:: Diabetes Mellitus Type 1, Diabetes Mellitus Type 2 *Have you ever received a pneumonia vaccine?: No *Have you received a flu vaccine this season?: No Other Surgeries: Yes: Other Amputation: No Fractures: No - *Social History Smoking Status: Current every day smoker Tobacco Type: cigarettes # Packs/Day (cigarettes): 1 Alcohol Intake: former Substance Use Type: denies use *Occupational Status:: disabled Housing: apartment Household Members: significant other *Travel in the last 8 weeks: None - Psychiatric History Pschychiatric History:: Reports:: Anxiety Family Hx:: Stroke, Hypertension, Coronary Artery Disease Review of Systems - Review of Systems Review of systems:: pertinent systems reviewed and negative unless documented below - Constitutional Denies fever(s) - Eyes Reports other (visual impaired ) - ENT Denies headache(s) - *Cardiovascular Denies chest pain at rest - *Respiratory Denies cough - *Gastrointestinal Denies abdominal pain - *Genitourinary Denies blood in urine - *Musculoskeletal Reports joint pain, Reports limited joint movement - Integumentary/Breasts Denies rash - *Neurologic Denies seizure-like activity - Psychiatric Reports anxiety Meds Home Medications Medication Instructions Recorded Confirmed Type albuterol sulfate 90 mcg/actuation 1 inh INHALATION QID PRN #8.5 g 07/02/20 10/30/21 Rx aerosol inhaler diazepam 5 mg tablet 5 mg PO BID PRN #60 tab 10/15/21 10/30/21 Rx hydrocodone 5 mg-acetaminophen 325 1 tab PO BID PRN #60 tab 10/15/21 10/30/21 Rx mg tablet Cholecalciferol (Vitamin D3) See Rx Instructions .ROUTE .COMPLEX 10/30/21 10/30/21 History [Vitamin D3 50,000 unit Cap] Fluticasone Propionate 1 spray NS DAILY 10/30/21 10/30/21 History Gabapentin 600 mg PO TID 10/30/21 10/30/21 History Loratadine [Allergy Relief] 10 mg PO DAILY 10/30/21 10/30/21 History SUMAtriptan succinate [Sumatriptan See Rx Instructions .ROUTE .COMPLEX 10/30/21 10/30/21 History Succinate] Topiramate See Rx Instructions .ROUTE .COMPLEX 10/30/21 10/30/21 History levETIRAcetam [Levetiracetam] See Rx Instructions .ROUTE .COMPLEX 10/30/21 10/30/21 History lisinopriL [Lisinopril] See Rx Instructions .ROUTE .COMPLEX 10/30/21 10/30/21 History Allergies Allergy/AdvReac Type Severity Reaction Status Date / Time tramadol Allergy Severe Anaphylaxis Verified 10/15/21 14:00 penicillin G [PENICILLIN G] Allergy Mild Verified 10/15/21 14:00 prednisone Allergy Mild hives Verified 10/15/21 14:00 codeine [CODEINE] Allergy Unknown Verified 10/15/21 14:00 Exam Vital signs and Labs for Last 24 Hours: Temp Pulse Resp BP Pulse Ox 97.8 F 92 H 16 123/76 99 10/29/21 19:01 10/29/21 19:01 10/29/21 19:01 10/29/21 19:01 10/29/21 19:01 Laboratory Results - last 24 hr 10/29/21 12:54: WBC 18.9 H, RBC 3.36 L, Hgb 11.7 L, Hct 34.8 L, MCV 103.6 H, MCH 34.7 H, MCHC 33.5, RDW 13.1, Plt Count 405, MPV 8.3, Neut % (Auto) 88.6 H, Lymph % (Auto) 6.4 L, [place] % (Auto) 3.7, Eos % (Auto) 0.1, Baso % (Auto) 1.2, Neut # (Auto) 16.8 H, Lymph # (Auto) 1.2, [place] # (Auto) 0.7, Eos # (Auto) 0.0, Baso # (Auto) 0.2, Total Counted 100, Neutrophils % (Manual) 87 H, Band Neutrophils % 1.0, Lymphocytes % (Manual) 9 L, Monocytes % (Manual) 3, Platelet Estimate Normal, Macrocytosis 1+ 10/29/21 12:54: Sodium 141, Potassium 4.3, Chloride 106, Carbon Dioxide 26, Anion Gap 13.3, BUN 49 H, Creatinine 0.90, Estimated Creat Clear 63, Estimated GFR 84, Est GFR ( Amer) 102, Glucose 186 H, Calcium 9.8, Total Bilirubin
[2021-10-30 04:00] VITALS: BP 141/76; PULSE 99; RESP 20; TEMP 36.8; O2SAT 99
[2021-10-30 05:00] VITALS: BMI 17.0
--- NOTE | 2021-10-30 06:37 | PC.NURSE ---
Pt alert and oriented to person, place, and situation. Pt does seem to get confused at times and talks to himself often. 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 Pt has complained of pain in right hip 1x t/o shift. Administered 2mg Morphine, pt states favorable results. Pt has been NPO since midnight, oral care provided q2h. Call light within reach.
[2021-10-30 06:40] LABS: Basophils # 0.2 K/mm3 (0-0.2); Basophils % 1.5 % (0.1-2.0); Eosinophils # 0.4 K/mm3 (0.0-0.4); Eosinophils % 3.5 % (0.1-12.0); Hematocrit 33.6 % (42.0-52.0); Hemoglobin 11.1 g/dL (14.1-18.0); Lymphocytes # 2.2 K/mm3 (0.7-4.5); Lymphocytes % 18.1 % (10-50); Mean Corpuscular HGB Conc 33.1 g/dL (31.8-35.4); Mean Corpuscular Hemoglobin 34.2 pg (27.0-31.2); Mean Corpuscular Volume 103.2 fl (80-94); Mean Platelet Volume 8.2 fl (7.4-10.4); Monocytes # 0.7 K/mm3 (0.1-1.0); Monocytes % 5.9 % (1.7-9.3); Neutrophils # 8.8 K/mm3 (1.8-7.8); Neutrophils % 70.9 % (37.0-80.0); Platelet Count 384 K/mm3 (142-424); Red Blood Count 3.25 M/mm3 (4.60-6.20); Red Cell Distribution Width 13.1 % (11.5-17.5); White Blood Count 12.3 K/mm3 (4.8-10.8)
[2021-10-30 06:41] LABS: Chloride 111 mmol/L (98-107); Sodium 142 mmol/L (136-145)
[2021-10-30 06:42] LABS: Potassium 4.2 mmoL/L (3.5-5.1)
[2021-10-30 06:44] LABS: Blood Urea Nitrogen 37 mg/dl (9-20); Creatinine Clearance Estimated 54 mL/min (50-200); Estimated Glomerular Filt Rate 97 ml/min (>60); GFR (African American) 117 ML/MIN (>60)
[2021-10-30 06:45] LABS: Anion Gap 10.2 mEq/L (5-15); Calcium 9.4 mg/dl (8.4-10.2); Carbon Dioxide 25 mmol/L (22.0-30.0); Glucose 126 mg/dl (74-100)
--- NOTE | 2021-10-30 07:09 | HMH.PHAVTE ---
[facility] Pharmacy VTE Monitoring - Patient Demographics Admission date: 10/29/21 Report Date: 10/30/21 Time: 07:09 Allergies/Adverse Reactions: Patient Allergies tramadol Allergy (Severe, Verified 10/15/21 14:00) Anaphylaxis penicillin G [PENICILLIN G] Allergy (Mild, Verified 10/15/21 14:00) prednisone Allergy (Mild, Verified 10/15/21 14:00) hives codeine [CODEINE] Allergy (Unknown, Verified 10/15/21 14:00) Height: 1.75 m Weight: 52.254 kg Patient Problems: Current Active Problems Closed right hip fracture (Acute) Dehydration (Acute) - VTE Risk Labs: VTE Related Lab Results Hgb 11.7 g/dL (14.1-18.0) L 10/29/21 12:54 Hct 34.8 % (42.0-52.0) L 10/29/21 12:54 Plt Count 405 K/mm3 (142-424) 10/29/21 12:54 BUN 37 mg/dl (9-20) H 10/30/21 06:16 Creatinine 0.80 mg/dl (0.66-1.25) 10/30/21 06:16 Estimated Creat Clear 54 mL/min (50-200) 10/30/21 06:16 - Prophylaxis VTE Prophylaxis Ordered?: Yes Types of VTE Prophylaxis: TEDS Knee High Location of Applied Device: Bilateral Lower Extremeties
--- NOTE | 2021-10-30 07:16 | CA_ITS ---
APPROVED REPORT EXAM: Comprehensive 2D, Doppler, and color-flow Echocardiogram Medical Office Asst: Rika Tai RT(R) Ht: 5 ft 8 in Wt: 115lbs BSA: 1.62 BP: 123/76 mmHg Indications: pre op clearance for hip fracture repair, HTN, hyperlipidemia, smoker. Patient supine on back due to hip fracture. 2D Dimensions LVOT 1.62 cm (M/F) 1.5-2.5 M-Mode Dimensions RVDd 2.15 cm (0.9-2.6) LVDd 3.65 cm (3.5-5.7) LVDs 2.79 cm (3.5-5.7) IVSd 0.86 cm (0.6-1.1) PWd 0.75 cm (0.6-1.1) EF (Teich) 48.00% FS 23.60% EDV (Teich) 56.30 mL ESV (Teich) 29.30 mL LV Diastology E Decel Time 150.00 (160-240 msec) E/A Ratio 0.7 MED E' 5.80 (< 7 cm/sec) E'/MED E' Ratio 11.09 (>14) LAT E' 6.80 (<10 cm/sec) E/LAT E' Ratio 9.46 (>14) Mitral Valve MV E Max Saroj. 64.00 (40-130 cm/s) MV A Velocity 95.00 (40-130 cm/s) E/A Ratio 0.68 MV Decel. Time 150.00 (160-240 ms) MV PHT 44.00 ms Left Ventricle Left atrium is mildly enlarged, left ventricle is normal size, mild concentric left ventricle hypertrophy, hyperdynamic left ventricular systolic function, estimated ejection fraction over 65% with no regional wall motion abnormality, grade 1 diastolic dysfunction seen without tissue Doppler evidence of raise left atrial pressure. Right Ventricle Right atrium and right ventricle are normal size and contractility. Aortic Valve Aortic valve is thickened and calcified without aortic stenosis or aortic insufficiency. Mitral Valve Mitral valve has mitral annular calcification there is no mitral stenosis, there is mild mitral regurgitation. Tricuspid Valve Tricuspid valve grossly normal, there is mild tricuspid regurgitation, tricuspid regurgitation jet velocity is inadequate for calculation of the right ventricular systolic pressure. Pulmonic Valve Pulmonic valve is poorly visualized. Great Vessels Aortic root is normal size. Inferior vena cava normal size with normal inspiratory collapse. Pericardium No significant pericardial effusion noted. Conclusion 1. Technically difficult study because of the patient factors and poor acoustic windows. 2. Mildly enlarged left atrium, normal left ventricular size, mild concentric left ventricular hypertrophy, hyperdynamic left ventricular systolic function, estimated ejection fraction over 65% with no regional wall motion abnormality, grade 1 diastolic dysfunction seen without tissue Doppler evidence of raise left atrial pressure. 3. Mild mitral and tricuspid regurgitation. 4. No significant pericardial effusion noted. 5. Inferior vena cava is normal size with normal inspiratory collapse. Electronically signed by : Casey Paz MD 10/30/2021 12:29:10
--- NOTE | 2021-10-30 07:29 | HMH.PHAINT ---
MEDICATION RECONCILIATION COMPLETED ON PATIENT USING EXTERNAL FILL HISTORY FROM PHARMACY. -KARMEN CACERES, MOYD
[2021-10-30 08:00] VITALS: BP 106/62; PULSE 90; RESP 16; TEMP 36.8; O2SAT 98
--- NOTE | 2021-10-30 09:18 | HMH.ORTHOCON ---
*Admission Date: 10/29/21 <Britta Maguire - 10/30/21 09:19> *Reason for consult:: right femoral neck fracture <Britta Maguire 10/30/21 09:19> *History of present illness: Patient is a 66-year-old male admitted to the acute inpatient service at [facility] yesterday 10/29/2021 after sustaining a fall at home. The patient reports that he was walking in his home several days ago when he tripped and fell over some cords in his living room, causing him to injure his right hip. He states that he has had pain in the right hip since that time and has been unable to ambulate or care for himself. He was brought to the [facility] emergency department yesterday where evaluation with x-ray demonstrated a right femoral neck fracture. This morning the patient is lying comfortably in bed and his sister and brother at the bedside. He reports pain in his right hip but states that it is well controlled with rest and as needed pain medication. Prior to this injury he denies any issues with the right hip and states that he ambulates without the use of a walker or cane. 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 His past medical history is significant for blindness, hypertension, hyperlipidemia, coronary artery calcification, seizures, and tobacco use. He is a daily cigarette smoker. He denies any chest pain, palpitations, shortness of breath, or distal tingling/numbness. He denies any other symptoms or concerns at this time. <Britta Maguire 10/30/21 09:28> [facility] History Medical History: Reports:: Anxiety, Hyperlipidemia, Hypertension, Seizures Denies:: Diabetes Mellitus Type 1, Diabetes Mellitus Type 2 <Britta Maguire 10/30/21 09:19> *Have you ever received a pneumonia vaccine?: No <Britta Maguire 10/30/21 09:19> *Have you received a flu vaccine this season?: No <Britta Maguire 10/30/21 09:19> Other Surgeries: Yes: Other (right femur fx) <Britta Maguire 10/30/21 09:19> Amputation: No <Britta Maguire 10/30/21 09:19> Fractures: Yes <Britta Maguire 10/30/21 09:19> - *Social History Smoking Status: Unknown if ever smoked <Britta Maguire 10/30/21 09:19> Tobacco Type: cigarettes <Britta Maguire 10/30/21 09:19> # Packs/Day (cigarettes): 1 <Britta Maguire 10/30/21 09:19> Alcohol Intake: never <Britta Maguire 10/30/21 09:19> Substance Use Type: denies use <Britta Maguire 10/30/21 09:19> *Occupational Status:: disabled <Britta Maguire 10/30/21 09:19> Housing: apartment <Britta Maguire 10/30/21 09:19> Household Members: none <Britta Maguire 10/30/21 09:19> *Travel in the last 8 weeks: None <Britta Maguire 10/30/21 09:19> - Psychiatric History Pschychiatric History:: Reports:: Anxiety <Britta Maugire 10/30/21 09:19> Family Hx:: Stroke, Hypertension, Coronary Artery Disease <Britta Maguire 10/30/21 09:19> Review of Systems - Review of Systems Review of systems:: pertinent systems reviewed and negative unless documented below <Britta Maguire 10/30/21 09:28> - Constitutional Denies anorexia, Denies body ache(s), Denies chills, Denies fatigue, Denies fever(s), Denies headache(s), Denies malaise <Britta Maguire 10/30/21 09:28> - Eyes Denies change in vision <Britta Maguire 10/30/21 09:28> - ENT Denies abnormal hearing, Denies poor balance, Denies dizziness, Denies headache(s), Denies nasal congestion, Denies sore throat <Britta Maguire 10/30/21 09:28> - *Cardiovascular Denies chest pain, Denies chest pain at rest, Denies shortness of breath, Denies shortness of breath with activity <Britta Maguire - 10/30/21 09:28> - *Respiratory Denies chest congestion, Denies cough, Denies shortness of breath, Denies pain on inspiration, Denies wheezing <Britta Maguire - 10/30/21 09:28> - *Gastrointestinal Denies abdominal pain, Denies change in bowel habits, Denies constipation, Denie
--- NOTE | 2021-10-30 09:37 | HMH.CNCARD ---
History of Present Illness Consult date: 10/30/21 Requesting physician: Adriel Castillo Consult reason: pre-op evaluation Chief complaint: Right hip pain/fracture after trip and fall Additional Medical History:: Past medical hx: Blindess HTN 1 ppd smoker seizure disorder History of present illness: 66 year old male with past medical hx significant for HTN, blindness, 1 ppd smoker, and seizures presented to ER with complaint of right hip pain after trip and fall last . Patient reported has been bed bound since fall. xray showed right femoral neck fracture. EKG negative for any ischemic changes. Labs in ER showed WBC of 18.9 which have trended down. Cardiology was asked to consult for medical clearance. Patient denies hx of chest pain or soa. Reports lives alone and performs ADLs without issues. Reports [facility] History Medical History: Reports:: Anxiety, Hyperlipidemia, Hypertension, Seizures Denies:: Diabetes Mellitus Type 1, Diabetes Mellitus Type 2 *Have you ever received a pneumonia vaccine?: No *Have you received a flu vaccine this season?: No Other Surgeries: Yes: Other (right femur fx) Amputation: No Fractures: Yes - *Social History Smoking Status: Unknown if ever smoked Tobacco Type: cigarettes # Packs/Day (cigarettes): 1 Alcohol Intake: never Substance Use Type: denies use *Occupational Status:: disabled Housing: apartment Household Members: none *Travel in the last 8 weeks: None - Psychiatric History Pschychiatric History:: Reports:: Anxiety Family Hx:: Stroke, Hypertension, Coronary Artery Disease Meds Home Medications Medication Instructions Recorded Confirmed Type Albuterol Sulfate [Proventil Hfa] 1 puff IH QIDP PRN 10/30/21 10/30/21 History Cholecalciferol (Vitamin D3) 1,250 mcg PO WEEKLY 10/30/21 10/30/21 History [Vitamin D3 50,000 unit Cap] Fluticasone Propionate 1 spray NS DAILY 10/30/21 10/30/21 History Gabapentin 600 mg PO TID 10/30/21 10/30/21 History Hydrocod/Acet 5/325 mg [[place] 1 tab PO BIDP PRN 10/30/21 10/30/21 History 5/325mg tablet] Loratadine [Allergy Relief] 10 mg PO DAILY 10/30/21 10/30/21 History SUMAtriptan succinate [Sumatriptan 25 mg PO NEEDED PRN 10/30/21 10/30/21 History Succinate] Topiramate 25 mg PO HS 10/30/21 10/30/21 History buPROPion HCL [Wellbutrin SR 75mg 75 mg PO BID 10/30/21 10/30/21 History Tablet] carvediloL [Carvedilol 6.25mg Tab] 6.25 mg PO BID 10/30/21 10/30/21 History diazePAM [Valium 5mg tablets] 5 mg PO BIDP PRN 10/30/21 10/30/21 History levETIRAcetam [Levetiracetam] 500 mg PO BID 10/30/21 10/30/21 History lisinopriL [Lisinopril] 10 mg PO BID 10/30/21 10/30/21 History Allergies Allergy/AdvReac Type Severity Reaction Status Date / Time tramadol Allergy Severe Anaphylaxis Verified 10/15/21 14:00 penicillin G [PENICILLIN G] Allergy Mild Verified 10/15/21 14:00 prednisone Allergy Mild hives Verified 10/15/21 14:00 codeine [CODEINE] Allergy Unknown Verified 10/15/21 14:00 Exam Vital signs and Labs for Last 24 Hours: Temp Pulse Resp BP Pulse Ox 98.3 F 90 16 106/62 L 98 10/30/21 08:00 10/30/21 08:00 10/30/21 08:00 10/30/21 08:00 10/30/21 08:00 Laboratory Results - last 24 hr 10/29/21 12:54: WBC 18.9 H, RBC 3.36 L, Hgb 11.7 L, Hct 34.8 L, MCV 103.6 H, MCH 34.7 H, MCHC 33.5, RDW 13.1, Plt Count 405, MPV 8.3, Neut % (Auto) 88.6 H, Lymph % (Auto) 6.4 L, [place] % (Auto) 3.7, Eos % (Auto) 0.1, Baso % (Auto) 1.2, Neut # (Auto) 16.8 H, Lymph # (Auto) 1.2, [place] # (Auto) 0.7, Eos # (Auto) 0.0, Baso # (Auto) 0.2, Total Counted 100, Neutrophils % (Manual) 87 H, Band Neutrophils % 1.0, Lymphocytes % (Manual) 9 L, Monocytes % (Manual) 3, Platelet Estimate Normal, Macrocytosis 1+ 10/29/21 12:54: Sodium 141, Potassium 4.3, Chloride 106, Carbon Dioxide 26, Anion Gap 13.3, BUN 49 H, Creatinine 0.90, Estimated Creat Clear 63, Estimated GFR 84, Est GFR ( Amer) 102, Glucose 186 H, Calcium 9.8, Total Bilirubin 0.5, AST 108 H, ALT
--- NOTE | 2021-10-30 09:40 | HMH.ACPN2 ---
Internal Medicine - PN: Subj *Date: 10/30/21 *Time: 08:20 Exam Vital signs and Labs for Last 24 Hours: Temp Pulse Resp BP Pulse Ox 98.3 F 90 16 106/62 L 98 10/30/21 08:00 10/30/21 08:00 10/30/21 08:00 10/30/21 08:00 10/30/21 08:00 Laboratory Results - last 24 hr 10/29/21 12:54: WBC 18.9 H, RBC 3.36 L, Hgb 11.7 L, Hct 34.8 L, MCV 103.6 H, MCH 34.7 H, MCHC 33.5, RDW 13.1, Plt Count 405, MPV 8.3, Neut % (Auto) 88.6 H, Lymph % (Auto) 6.4 L, [place] % (Auto) 3.7, Eos % (Auto) 0.1, Baso % (Auto) 1.2, Neut # (Auto) 16.8 H, Lymph # (Auto) 1.2, [place] # (Auto) 0.7, Eos # (Auto) 0.0, Baso # (Auto) 0.2, Total Counted 100, Neutrophils % (Manual) 87 H, Band Neutrophils % 1.0, Lymphocytes % (Manual) 9 L, Monocytes % (Manual) 3, Platelet Estimate Normal, Macrocytosis 1+ 10/29/21 12:54: Sodium 141, Potassium 4.3, Chloride 106, Carbon Dioxide 26, Anion Gap 13.3, BUN 49 H, Creatinine 0.90, Estimated Creat Clear 63, Estimated GFR 84, Est GFR ( Amer) 102, Glucose 186 H, Calcium 9.8, Total Bilirubin 0.5, AST 108 H, ALT 76, Alkaline Phosphatase 122, Total Protein 8.2, Albumin 4.2, Globulin 4.0 H, Albumin/Globulin Ratio 1.1 10/29/21 14:20: Lactate 1.5 10/29/21 14:55: SARS-CoV-2 (PCR) Not detected, Influenza A Untype (PCR) Not detected, Influenza Type B (PCR) Not detected 10/30/21 06:16: WBC 12.3 H D, RBC 3.25 L, Hgb 11.1 L, Hct 33.6 L, MCV 103.2 H, MCH 34.2 H, MCHC 33.1, RDW 13.1, Plt Count 384, MPV 8.2, Neut % (Auto) 70.9, Lymph % (Auto) 18.1, [place] % (Auto) 5.9, Eos % (Auto) 3.5, Baso % (Auto) 1.5, Neut # (Auto) 8.8 H, Lymph # (Auto) 2.2, [place] # (Auto) 0.7, Eos # (Auto) 0.4, Baso # (Auto) 0.2 10/30/21 06:16: Sodium 142, Potassium 4.2, Chloride 111 H, Carbon Dioxide 25, Anion Gap 10.2, BUN 37 H, Creatinine 0.80, Estimated Creat Clear 54, Estimated GFR 97, Est GFR ( Amer) 117, Glucose 126 H D, Calcium 9.4 I & O for Last 24 hours: Intake & Output 10/27/21 10/28/21 10/29/21 10/30/21 11:59 11:59 11:59 11:59 Weight 135 lb 115 lb 3.2 oz - Constitutional no acute distress, thin - *Routine HEENT Exam Head: Present: normocephalic Eye: Present: other ENT: Present: mucous membranes moist - *Routine Neck Exam Present: supple. Absent: lymphadenopathy - *Routine Respiratory Exam Present: CTA bilaterally - *Routine Cardiovascular Exam Present: RRR - *Routine Abdominal Exam Present: soft, normoactive bowel sounds. Absent: tenderness - *Routine Extremities Exam Comments: rt lower ext turned in - *Routine Skin Exam Present: warm. Absent: rash - *Routine Neurological Exam Present: alert Assessment and Plan (1) Low body mass index (BMI) Status: Acute Category: Medical (2) Closed right hip fracture Status: Acute Qualifiers: Encounter type: initial encounter Qualified Code(s): S72.001A - Fracture of unspecified part of neck of right femur, initial encounter for closed fracture Category: Medical Code(s): S72.001A - Fracture of unspecified part of neck of right femur, initial encounter for closed fracture (3) Anxiety Status: Acute Category: Medical Code(s): F41.9 - Anxiety disorder, unspecified (4) Blind Status: Acute Qualifiers: Right eye visual impairment category: right - unspecified impairment Left eye visual impairment category: left - unspecified blindness Qualified Code(s): H54.40 - Blindness, one eye, unspecified eye Category: Medical Code(s): H54.7 - Unspecified visual loss (5) Tobacco use Status: Acute Category: Social Hx Code(s): Z72.0 - Tobacco use - Assessment and plan all Dx Assessment and Plan for all problems:: rounded with dr carlisle all orders per dr carlisle cardiology to clear for surgery ortho consult
--- NOTE | 2021-10-30 10:36 | P.PN_ITS ---
[facility] Anesthesia Checklist - Patient Identification Patient Identification: Arm Band - Structural Data Admitted From: Inpatient Planned Operative Procedure/s: Right Hip Hemiarthroplasty Consent for Planned Operative Procedure(s) Verified: Yes Verified Documents: Surgical Consent, History and Physical - NPO Status Verified Time NPO: 00:00 - Additional verifications Anesthesia Reactions: No - Airway Assessment C-Spine Mobility Assessed: Yes (mp2) TMJ Mobility Assessed: Yes Dentition: Edentulous - Neurological Assessment Level of Consciousness: Awake, Alert - Anesthesia Plan Anesthesia Risk discussed: Yes Anesthesia Plan: Verified ASA Class: III Anesthesia Type: MAC w/Spinal [facility] History I have reviewed the patient's past medical history: Yes Medical History: Reports:: Anxiety, Chronic Obstructive Pulmonary Disease ( COPD), Hyperlipidemia, Hypertension, Seizures Denies:: Diabetes Mellitus Type 1, Diabetes Mellitus Type 2 *Have you ever received a pneumonia vaccine?: No *Have you received a flu vaccine this season?: No Anesthesia experience/problems:: nac Other Surgeries: Yes: Other (right femur fx) Amputation: No Fractures: Yes - *Social History Smoking Status: Unknown if ever smoked Tobacco Type: cigarettes # Packs/Day (cigarettes): 1 Alcohol Intake: never Substance Use Type: denies use *Occupational Status:: disabled Housing: apartment Household Members: none *Travel in the last 8 weeks: None - Psychiatric History Pschychiatric History:: Reports:: Anxiety Family Hx:: Stroke, Hypertension, Coronary Artery Disease
[2021-10-30 14:03] LABS: Microscopic, Urine URINE MICROSCOPIC (MICROSCOPIC)
[2021-10-30 14:06] LABS: Appearance,Urine CLEAR (Clear); Bilirubin,Urine Negative (Negative); Blood, Urine Negative (Negative); Color,Urine YELLOW (Yellow); Glucose,Urine (UA) Negative (Negative); Ketones,Urine TRACE (Negative); Leukocyte Esterase,Urine Negative (Negative); Nitrate,Urine Negative (Negative); Protein,Urine Negative (Negative); Specific Gravity, Urine 1.015 (1.005-1.030)
[2021-10-30 14:18] LABS: Bacteria,Urine Trace /lpf; RBC,Urine Occasional #/hpf (0-3)
[2021-10-30 16:19] VITALS: BP 129/84; PULSE 101; RESP 16; TEMP 36.9; O2SAT 95
--- NOTE | 2021-10-30 16:21 | PC.NURSE ---
notified Riccardo Green APRN of pt refusing to do surgery while in pre-op
--- NOTE | 2021-10-30 16:25 | SUR.PREOP ---
1406-Dr. Caldera at pt's bedside in pre op at this time. Pt has repeatedly refused to have surgery as scheduled today. Dr. Caldera and family at bedside confirmed that pt refused to have surgery. Dr. Caldera stated to return pt back to room on med/surg and will attempt to have surgery again tomorrow if pt agrees. Called DARIUS Smith and notified that pt will be returning to floor at this time. 1412-pt transported to 2nd floor room 206 via hospital bed w/suzanna rails up per darius Davalos and [facility] and left in care of DARIUS Smith with bed locked in lowest position, vss, pt stable
--- NOTE | 2021-10-30 17:30 | PC.NURSE ---
Since being back up to the floor pt has refused his meal. Pt has been oriented to self and situation this shift. Pt remains on RA. Seizure precautions in place. No other acute changes. Will monitor.
[2021-10-30 20:00] VITALS: BP 135/77; PULSE 98; RESP 17; TEMP 36.7; O2SAT 99
[2021-10-31] VITALS (19 sets, daily range): BP systolic 92–158; BP diastolic 47–95; PULSE 70–97; RESP 12–18; TEMP 36.3–43; O2SAT 93–100; BMI 17.3
--- NOTE | 2021-10-31 04:55 | PC.NURSE ---
Patient rested throughout shift. Patient has been alert to self and mumbles and talks to self often. Patient has been npo since 0000 r/t planned surgery. Patient F/C in place. Patient medicated for pain per JUL.
[2021-10-31 07:25] LABS: Basophils # 0.1 K/mm3 (0-0.2); Basophils % 0.9 % (0.1-2.0); Eosinophils # 0.5 K/mm3 (0.0-0.4); Eosinophils % 4.4 % (0.1-12.0); Hematocrit 30.5 % (42.0-52.0); Hemoglobin 10.2 g/dL (14.1-18.0); Lymphocytes # 2.5 K/mm3 (0.7-4.5); Lymphocytes % 23.1 % (10-50); Mean Corpuscular HGB Conc 33.2 g/dL (31.8-35.4); Mean Corpuscular Hemoglobin 33.8 pg (27.0-31.2); Mean Corpuscular Volume 101.6 fl (80-94); Mean Platelet Volume 8.4 fl (7.4-10.4); Monocytes # 0.7 K/mm3 (0.1-1.0); Monocytes % 6.1 % (1.7-9.3); Neutrophils # 7.1 K/mm3 (1.8-7.8); Neutrophils % 65.6 % (37.0-80.0); Platelet Count 393 K/mm3 (142-424); Red Blood Count 3.01 M/mm3 (4.60-6.20); Red Cell Distribution Width 12.9 % (11.5-17.5); White Blood Count 10.8 K/mm3 (4.8-10.8)
[2021-10-31 07:42] LABS: Chloride 111 mmol/L (98-107); Potassium 3.7 mmoL/L (3.5-5.1); Sodium 139 mmol/L (136-145)
[2021-10-31 07:45] LABS: Anion Gap 9.7 mEq/L (5-15); Blood Urea Nitrogen 26 mg/dl (9-20); Calcium 9.2 mg/dl (8.4-10.2); Carbon Dioxide 22 mmol/L (22.0-30.0); Creatinine Clearance Estimated 55 mL/min (50-200); Estimated Glomerular Filt Rate 135 ml/min (>60); GFR (African American) 163 ML/MIN (>60); Glucose 112 mg/dl (74-100)
--- NOTE | 2021-10-31 09:12 | HMH.ACPN2 ---
Internal Medicine - PN: Subj *Date: 10/31/21 *Time: 09:12 Interval history: 66-year-old male patient resting in bed with eyes open. Patient was taken to surgery yesterday and refused hip surgery, he did not really have a reason just said that he was refusing surgery. This morning patient also refusing surgery he will not discuss why he just he does not want surgery. Possible medical outcomes explained to patient including possible never to walk again, bedbound, blood clots, and need for caregivers. He verbalizes understanding still refuses surgery. Discussed with Gideon DONALD, she reports she has discussed with Ortho surgeon and he will come up and discussed with patient. Exam Vital signs and Labs for Last 24 Hours: Temp Pulse Resp BP Pulse Ox 97.5 F L 84 16 109/72 L 100 10/31/21 20:30 10/31/21 20:30 10/31/21 20:30 10/31/21 20:30 10/31/21 20:30 Laboratory Results - last 24 hr 10/31/21 06:36: WBC 10.8, RBC 3.01 L, Hgb 10.2 L, Hct 30.5 L, MCV 101.6 H, MCH 33.8 H, MCHC 33.2, RDW 12.9, Plt Count 393, MPV 8.4, Neut % (Auto) 65.6, Lymph % (Auto) 23.1, [place] % (Auto) 6.1, Eos % (Auto) 4.4, Baso % (Auto) 0.9, Neut # (Auto) 7.1, Lymph # (Auto) 2.5, [place] # (Auto) 0.7, Eos # (Auto) 0.5 H, Baso # (Auto) 0.1 10/31/21 06:36: Sodium 139, Potassium 3.7, Chloride 111 H, Carbon Dioxide 22, Anion Gap 9.7, BUN 26 H D, Creatinine 0.60 L D, Estimated Creat Clear 55, Estimated GFR 135, Est GFR ( Amer) 163 D, Glucose 112 H, Calcium 9.2 I & O for Last 24 hours: Intake & Output 10/28/21 10/29/21 10/30/21 10/31/21 23:59 23:59 23:59 23:59 Intake Total 1028 / 1028 1200 / 1200 Output Total 1600 / 1600 Balance 1028 / 528 -400 / -400 Weight 112 lb 7 oz 115 lb 3.2 oz 117 lb 1.6 oz Microbiology Reports for the Last 24 Hours: Microbiology 10/29/21 14:20 Blood Blood Culture - Preliminary NO GROWTH AFTER 48 HOURS 10/29/21 14:20 Blood Blood Culture - Preliminary NO GROWTH AFTER 48 HOURS - Constitutional no acute distress, chronically ill appearing - *Routine HEENT Exam Head: Present: normocephalic Eye: Present: EOMI ENT: Present: mucous membranes moist - *Routine Neck Exam Present: trachea midline. Absent: tracheal deviation - *Routine Respiratory Exam Present: CTA bilaterally. Absent: accessory muscle use - *Routine Cardiovascular Exam Present: RRR - *Routine Abdominal Exam Present: soft, normoactive bowel sounds. Absent: tenderness, firm - *Routine Extremities Exam Present: pulses intact. Absent: cyanosis, clubbing, full ROM Comments: Right lower extremity shortened Right lower extremity externally rotated - *Routine Skin Exam Present: intact, dry. Absent: cyanosis, erythema - *Routine Neurological Exam Present: alert, oriented X3. Absent: motor deficit, moving all extremities - Routine Psychiatric Exam Present: normal affect, normal thought process Assessment and Plan (1) Low body mass index (BMI) Status: Acute Category: Medical (2) Closed right hip fracture Status: Acute Qualifiers: Encounter type: initial encounter Qualified Code(s): S72.001A - Fracture of unspecified part of neck of right femur, initial encounter for closed fracture Category: Medical Code(s): S72.001A - Fracture of unspecified part of neck of right femur, initial encounter for closed fracture (3) Anxiety Status: Acute Category: Medical Code(s): F41.9 - Anxiety disorder, unspecified (4) Blind Status: Acute Qualifiers: Right eye visual impairment category: right - unspecified impairment Left eye visual impairment category: left - unspecified blindness Qualified Code(s): H54.40 - Blindness, one eye, unspecified eye Category: Medical Code(s): H54.7 - Unspecified visual loss (5) Tobacco use Status: Acute Category: Social Hx Code(s): Z72.0 - Tobacco use - Assessment and plan all Dx Asses
--- NOTE | 2021-10-31 11:38 | HMH.ORTHPN ---
Subjective Date: 10/31/21 <Britta Maguire - 10/31/21 11:39> Time: 08:35 <Britta Maguire - 10/31/21 11:39> Principal diagnosis: Right femoral neck fracture <Britta Maguire - 10/31/21 11:39> Interval history: Patient was initially scheduled to have surgery yesterday. However, patient refused to proceed with surgery while in the preoperative area stating that he feels tired and hungry. <Jamshid Caldera - 10/31/21 18:11> Patient is a 66-year-old male admitted to the acute inpatient service on 10/29/2021 after sustaining a fall at home. Evaluation in the [facility] demonstrates a right femoral neck fracture. The patient was scheduled to undergo a right hip hemiarthroplasty yesterday evening performed by Dr. Caldera, but subsequently decided against surgical intervention at that time. This morning the patient is lying comfortably in bed. He denies any pain in his right hip at this time and states that his pain is well controlled with rest. He reports that he was able to eat last night and get a good nights rest. He denies any chest pain, palpitations, shortness of breath, or distal tingling/numbness. His past medical history significant for blindness, hypertension, hyperlipidemia, coronary artery calcification, seizures, and tobacco use. He denies any other symptoms or concerns at this time. <Britta Maguire - 10/31/21 11:53> PN: Obj Ex Vital signs: Temp Pulse Resp BP Pulse Ox 97.4 F L 81 18 114/86 98 10/31/21 16:58 10/31/21 16:58 10/31/21 16:58 10/31/21 16:58 10/31/21 16:58 <Jamshid Caldera - 10/31/21 18:11> Temp Pulse Resp BP Pulse Ox 98.1 F 97 H 16 124/73 98 10/31/21 08:00 10/31/21 08:00 10/31/21 08:00 10/31/21 08:00 10/31/21 08:00 <Britta Maguire - 10/31/21 11:39> - Constitutional no acute distress, thin, chronically ill appearing <Britta Maguire 10/31/21 11:53> - Routine HEENT Exam Head: Present: normocephalic, atraumatic <Britta Maguire 10/31/21 11:53> Eye: Present: EOMI, PERRL <Britta Maguire 10/31/21 11:53> ENT: Present: mucous membranes moist <Britta Maguire 10/31/21 11:53> - Routine Neck Exam Present: supple, full ROM, trachea midline. Absent: JVD, lymphadenopathy <Britta Maguire 10/31/21 11:53> - Routine Respiratory Exam Absent: accessory muscle use, respiratory distress <Britta Maguire 10/31/21 11:53> Comments: Symmetric chest movement, able to speak in complete sentences <Britta Maguire 10/31/21 11:53> - Routine Cardiovascular Exam Present: RRR <Britta Maguire 10/31/21 11:53> Comments: Normal peripheral pulses <Britta Maguire 10/31/21 11:53> - Routine Abdominal Exam Present: soft. Absent: tenderness <Britta Maguire 10/31/21 11:53> - Routine Extremities Exam Comments: Upon examination of the lower extremities: The right lower limb is shortened and externally rotated. The skin is intact. No lacerations, abrasions, wounds, ecchymosis, or ulcerations evident. The right hip and proximal femur are tender to palpation. Attempted movements of the right hip are painful. Thigh and calf are soft nontender; Homans' sign is negative. No clinical evidence of DVT noted. Posterior tibial pulse 1+; distal neurovascular status is intact. Sensation to light touch is grossly intact throughout. Patient is actively mobilizing the ankle, foot, and toes. <Britta Maguire 10/31/21 11:53> - Routine Skin Exam Present: intact, warm, normal turgor. Absent: cyanosis, erythema, lesions, jaundice <Britta Maguire 10/31/21 11:53> - Routine Neurological Exam Present: alert, CN II-XII intact, moving all extremities, normal tone, normal speech. Absent: sensory deficit, motor deficit, altered mental status <Britta Maguire 10/31/21 11:53> - Routine Psychiatric Exam Present: normal affect, cooperative <Britta Maguire - 10/31/21 11:53> - Urinary Catheter Management Pantoja Cath placed during th
--- NOTE | 2021-10-31 12:00 | SW/DCPLANNER ---
Addendum entered by [facility] 11/05/21 13:51: Per Edyta Bonilla this patient has been approved for SNF at [facility] today. Patient can discharge today: I will notify MD and patient/family. Patient does NOT require a COVID swab prior to admission. Addendum entered by [facility] 11/05/21 10:08: Precert is still pending at this time. Addendum entered by [facility] 11/04/21 15:54: Precert is still pending at this time per Edyta Menard. Addendum entered by [facility] 11/04/21 09:00: Edyta Menard stated that precert has been started and is pending at this time. I will continue to follow up with [facility]. Patient is medically stable for discharge today. Addendum entered by [facility] 11/01/21 14:42: [facility]/ [facility] has accepted this patient and will start precert for anticipated discharge first of next week. Addendum entered by [facility] 11/01/21 09:54: Patient is agreeable to placement at [facility] in [place]. Patient information has been faxed to [facility]/ [facility]. Original Note: This patient will have right hip surgery today. Patient is an [facility] and at this time [facility] and [facility] are in network with patient's insurance. I will fax information to facilities if patient is agreeable after surgery. Discharge date is unknown at this time.
--- NOTE | 2021-10-31 14:07 | SUR.PREOP ---
1355-pt is Alert and Oriented X 3. Pt stated proc to be done side of body, name of hospital and city, Name and . And stated he understood the consent as explained to him. Pt signed consent with Jason MCCOY and Jose MCCOY witnessing and initialing due to patient blindness. Pt brother had sign consent previously but is not POA.
--- NOTE | 2021-10-31 16:05 | XR_ITS ---
PROCEDURE INFORMATION: Exam: XR Right Hip Exam date and time: 10/31/21 04:39 PM Age: 66 years old Clinical indication: Screening exam; Evaluation of right hip post grace-arthroplasty. Exam done portable in pacu. Prior surgery; Surgery date: Post-operative (0-2 days); Surgery type: Right hip hemiarthroplasty. ; Additional info: S/P right hip hemiarthroplasty TECHNIQUE: Imaging protocol: XR Right hip. Views: 2 or 3 views hip with pelvis when performed. COMPARISON: CR XR HIP RT 2-3V W/PELVIS 10/29/21 11:58 AM FINDINGS: Bones/joints: Right total hip arthroplasty in good position. Soft tissues: Unremarkable. Organs: Pantoja catheter in the bladder. IMPRESSION: Right total hip arthroplasty in good position.
--- NOTE | 2021-10-31 16:32 | HMH.ANESI ---
[facility] Anesthesia Record Part I Intake, IV Amount: 1,200 Estimated blood loss (mL): 50 Urine output (mL): 100 Blood Pressure: 104/65 SaO2: 99 Pulse Rate: 81 Respiratory Rate: 12 Temperature: 97.8 F Patient is:: Drowsy Stable to PACU at:: 16:28
--- NOTE | 2021-10-31 16:33 | HMH.ANESCL ---
[facility] Anesthesia Checklist - Patient Identification Patient Identification: Arm Band, Verbal (Name & ) - Structural Data Admitted From: Inpatient Planned Operative Procedure/s: Right Kb Arthroplasty Consent for Planned Operative Procedure(s) Verified: Yes Verified Documents: Surgical Consent - NPO Status Verified Time NPO: 00:00 - Chart Verification Results Verified: CBC, BMP - Additional verifications Anesthesia Reactions: No - Airway Assessment C-Spine Mobility Assessed: Yes TMJ Mobility Assessed: Yes - Neurological Assessment Level of Consciousness: Awake, Alert, Appropriate - Anesthesia Plan Anesthesia Risk discussed: Yes ASA Class: III Anesthesia Type: MAC w/Spinal [facility] History I have reviewed the patient's past medical history: Yes Medical History: Reports:: Anxiety, Chronic Obstructive Pulmonary Disease (COPD), Hyperlipidemia, Hypertension, Seizures Denies:: Diabetes Mellitus Type 1, Diabetes Mellitus Type 2 *Have you ever received a pneumonia vaccine?: No *Have you received a flu vaccine this season?: No Anesthesia experience/problems:: nac Other Surgeries: Yes: Other (right femur fx) Amputation: No Fractures: Yes - *Social History Smoking Status: Unknown if ever smoked Tobacco Type: cigarettes # Packs/Day (cigarettes): 1 Alcohol Intake: never Substance Use Type: denies use *Occupational Status:: disabled Housing: apartment Household Members: none *Travel in the last 8 weeks: None - Psychiatric History Pschychiatric History:: Reports:: Anxiety Family Hx:: Stroke, Hypertension, Coronary Artery Disease
--- NOTE | 2021-10-31 16:51 | PC.NURSE ---
1637-radiology at bedside
--- NOTE | 2021-10-31 17:15 | PC.NURSE ---
170-detailed report called to Richie Rothman RN [id number]-pt transported to med/surg room 206 via hospital bed w/suzanna rails up and left in care of DARIUS Carrera with bed locked in lowest position, s, pt stable
--- NOTE | 2021-10-31 18:11 | HMH.OPNOTE ---
Date of procedure: 10/31/21 Pre-op Diagnosis:: Closed, displaced fracture neck of femur, right hip Post-op Diagnosis:: Same Procedure performed:: Uncemented bipolar hemiarthroplasty, right hip Surgeon:: Jamshid Caldera MD Jail Officer(s):: Britta Maguire PA-C [employer] SHOP HELPER:: Other (Luke Zapien) Anesthesia: spinal Estimated blood loss (mL): 100 Clinical Note:: Patient is a 66-year-old male who sustained a displaced intracapsular fracture neck of right femur following a fall at home few days ago. He presented late to the hospital and declined to undergo surgery yesterday. He eventually agreed to proceed with surgical remediation today. A hemiarthroplasty is indicated to relieve pain and restore function. The operation is clinically indicated and is the standard of care for this type of fracture. Please refer to my consult note for full details. Operative findings:: Displaced sub capital femoral neck fracture of the right hip as noted on the preoperative hip x-rays. The articular cartilage of the acetabulum is well preserved without evidence of significant arthritis. The proximal femur bone quality is good. Operative note:: On the day of the procedure the patient was met on the floor, and a physical examination was performed. The operating side and site were marked and initialed by me. I reviewed the diagnosis, natural history and management options in detail including both the nonsurgical and surgical. Given the nature of the fracture, I have recommended surgery in the form of a hemiarthroplasty of the right hip. I have discussed the procedure, risks and benefits, alternatives, potential complications and expected outcomes with the patient and family. The complications discussed include but are not limited to infection, injury to nerves and blood vessels, DVT and PE, femur fracture, limb length inequality, dislocation, implant failure, loosening, acetabular wear, osteolysis, periprosthetic femur fracture, heterotopic ossification, abductor weakness and a limp, incomplete relief of pain, incomplete return of function or motion, likely need for further surgery in future including revision, anesthetic/medical complications including heart attack, stroke, transfusion reactions and even . We discussed how any of these events can be devastating. We have discussed nonsurgical alternatives as well. We also discussed the postoperative course including the rehab and physical therapy required. Patient understood the risks, agreed to proceed with surgery, signed the consent form and no guarantees or assurances were given or implied. The patient was brought to the operating room and a spinal anesthesia was administered by the sales market leader. The patient was then transferred onto the operating table and positioned in the left lateral decubitus position with the right hip facing upwards. All the bony prominences were well-padded. The right lower extremity was then prepped and draped in the usual sterile fashion. The entire operative team used isolation suits and room traffic was controlled. The surgical landmarks and incision was marked over the skin with a marking pen. Ioban sterile drape was used to cover the operative site and isolate the perineum completely from the operative field. Administration of prophylactic IV antibiotics (Ancef and vancomycin) was confirmed with the sales market leader. A preprocedure timeout was performed as per hospital protocol. A posterior approach was used to the hip joint. An electrocautery was used for hemostasis. The skin incision was made centering over the posterior border of the greater trochanter extending posteriorly in a curvilinear fashion across the buttock. The dissection was carried through subcutaneous tissue down to the fascia john. The fascia john and gluteus fascia were split and a Charnley retractor was placed. The trochanteric bursa was then removed with blunt dissection. The sciatic nerve was identified and kept out of the harm's way through
[2021-11-01] VITALS (7 sets, daily range): BP systolic 91–139; BP diastolic 57–86; PULSE 81–110; RESP 16–18; TEMP 36.3–37.1; O2SAT 97–100; BMI 17.3
--- NOTE | 2021-11-01 04:42 | PC.NURSE ---
Patient rested throughout night. Medicated patient for pain per mar. Dressing to Rt hip is CDI. Wedge and scudds inplace.
--- NOTE | 2021-11-01 07:09 | HMH.ANESII ---
[facility] Anesthesia Record Part II Discharge Time: 16:58 Destination: 2nd Floor PACU nurse assessment reviewed?: Yes Patient Condition:: Good Anesthesia Complications:: None Swallowing reflex intact?: Yes Cyanosis?: No Blood Pressure: 114/86 Pulse Rate: 81 Temperature: 97.4 F Mental Status: Alert & Oriented Pain level:: 0 Nausea and/or vomitting:: None Intake, IV Amount: 0
[2021-11-01 07:17] LABS: Chloride 111 mmol/L (98-107); Potassium 3.7 mmoL/L (3.5-5.1); Sodium 135 mmol/L (136-145)
[2021-11-01 07:19] LABS: Basophils # 0.1 K/mm3 (0-0.2); Basophils % 0.6 % (0.1-2.0); Eosinophils # 0.3 K/mm3 (0.0-0.4); Eosinophils % 3.9 % (0.1-12.0); Hematocrit 27.8 % (42.0-52.0); Hemoglobin 9.3 g/dL (14.1-18.0); Lymphocytes # 1.6 K/mm3 (0.7-4.5); Lymphocytes % 18.2 % (10-50); Mean Corpuscular HGB Conc 33.3 g/dL (31.8-35.4); Mean Corpuscular Hemoglobin 34.2 pg (27.0-31.2); Mean Corpuscular Volume 102.8 fl (80-94); Mean Platelet Volume 8.2 fl (7.4-10.4); Monocytes # 0.6 K/mm3 (0.1-1.0); Monocytes % 6.4 % (1.7-9.3); Neutrophils # 6.2 K/mm3 (1.8-7.8); Neutrophils % 70.9 % (37.0-80.0); Platelet Count 359 K/mm3 (142-424); Red Blood Count 2.71 M/mm3 (4.60-6.20); Red Cell Distribution Width 12.8 % (11.5-17.5); White Blood Count 8.8 K/mm3 (4.8-10.8)
[2021-11-01 07:20] LABS: Alanine Aminotransferase 30 U/L (12-78); Albumin Level 2.7 g/dl (3.5-5.0); Albumin/Globulin Ratio 0.9 (1.1-1.8); Alkaline Phosphatase 86 U/L (38-126); Anion Gap 7.7 mEq/L (5-15); Aspartate Amino Transferase 52 U/L (17-59); Bilirubin,Total 0.6 mg/dl (0.2-1.3); Blood Urea Nitrogen 14 mg/dl (9-20); Carbon Dioxide 20 mmol/L (22.0-30.0); Creatinine Clearance Estimated 54 mL/min (50-200); Estimated Glomerular Filt Rate 135 ml/min (>60); GFR (African American) 163 ML/MIN (>60); Total Protein,Serum 5.7 g/dl (6.3-8.2)
[2021-11-01 07:21] LABS: Calcium 8.3 mg/dl (8.4-10.2); Glucose 97 mg/dl (74-100)
--- NOTE | 2021-11-01 09:22 | HMH.ORTHPN ---
Subjective Date: 11/01/21 <MaguireBritta alvarado - 11/01/21 09:29> Time: 08:50 <Britta Maguire - 11/01/21 09:29> Principal diagnosis: Right femoral neck fracture <MaguireBritta - 11/01/21 09:29> Interval history: Patient is a 66-year-old male who underwent an uneventful right hip hemiarthroplasty yesterday 10/31/2021. Today the patient is postop day #1. This morning he sitting comfortably in a chair at the bedside and is eating breakfast. He reports some pain in his right hip, but states that it is well controlled with rest and as needed pain medication. He reports that he is eating and drinking well and denies any episodes of nausea or vomiting. He reports that he was able to transfer to the bedside chair this morning and ambulated a few steps with the assistance of physical therapy and states that this went well. He denies any history of fevers, chills, rigors, or distal tingling/numbness. He denies any other symptoms or concerns at this time. <Britta Maguire - 11/01/21 09:29> PN: Obj Ex Vital signs: Temp Pulse Resp BP Pulse Ox 98.7 F 95 H 18 91/57 L 97 11/01/21 12:00 11/01/21 12:00 11/01/21 12:00 11/01/21 12:00 11/01/21 12:00 <Jamshid Caldera - 11/01/21 15:24> Temp Pulse Resp BP Pulse Ox 97.4 F L 81 18 114/86 98 11/01/21 07:11 11/01/21 07:11 11/01/21 04:00 11/01/21 07:11 11/01/21 04:00 <Britta Maguire - 11/01/21 09:29> Narrative: Laboratory Results - last 24 hr 11/01/21 06:38: WBC 8.8, RBC 2.71 L, Hgb 9.3 L, Hct 27.8 L, MCV 102.8 H, MCH 34.2 H, MCHC 33.3, RDW 12.8, Plt Count 359, MPV 8.2, Neut % (Auto) 70.9, Lymph % (Auto) 18.2, [place] % (Auto) 6.4, Eos % (Auto) 3.9, Baso % (Auto) 0.6, Neut # (Auto) 6.2, Lymph # (Auto) 1.6, [place] # (Auto) 0.6, Eos # (Auto) 0.3, Baso # (Auto) 0.1 11/01/21 06:38: Sodium 135 L, Potassium 3.7, Chloride 111 H, Carbon Dioxide 20 L, Anion Gap 7.7, BUN 14 D, Creatinine 0.60 L, Estimated Creat Clear 54, Estimated GFR 135, Est GFR ( Amer) 163, Glucose 97, Calcium 8.3 L, Total Bilirubin 0.6, AST 52 D, ALT 30 D, Alkaline Phosphatase 86, Total Protein 5.7 L D, Albumin 2.7 L, Globulin 3.0, Albumin/Globulin Ratio 0.9 L <WernerJamshid Justen - 11/01/21 15:24> - Constitutional no acute distress, thin, cooperative <Britta Maguire 11/01/21 09:29> - Routine HEENT Exam Head: Present: normocephalic, atraumatic <Britta Maguire 11/01/21 09:29> Eye: Present: EOMI, PERRL <Britta Maguire 11/01/21 09:29> ENT: Present: mucous membranes moist <Britta Maguire 11/01/21 09:29> - Routine Neck Exam Present: supple, full ROM, trachea midline. Absent: JVD, lymphadenopathy <Britta Maguire 11/01/21 09:29> - Routine Respiratory Exam Absent: accessory muscle use, respiratory distress <Britta Maguire 11/01/21 09:29> Comments: Symmetric chest movement, able to speak in complete sentences <Britta Maguire 11/01/21 09:29> - Routine Cardiovascular Exam Present: RRR <Britta Maguire 11/01/21 09:29> Comments: Normal peripheral pulses <Britta Maguire 11/01/21 09:29> - Routine Abdominal Exam Present: soft. Absent: tenderness <Britta Maguire 11/01/21 09:29> - Routine Extremities Exam Comments: Upon examination of the lower extremities: The limb lengths are equal. Dressings present over the right hip are clean, dry, and intact. No evidence of drainage or bleeding noted. The right hip and proximal femur are tender to palpation. Attempted movements of the right hip are somewhat painful. Thigh and calf are soft and nontender; Homans' sign is negative. No clinical evidence of DVT. Posterior tibial pulse 1+; capillary refill is brisk. Sensation to light touch is grossly intact throughout. Patient is actively mobilizing the foot, ankle, and toes. Diagnostic imaging: Postoperative x-ray performed at [facility] 10/31/2021 demonstrates a right hip hemiarthroplasty with orthopedic components in satisfactory alignment. N
--- NOTE | 2021-11-01 09:33 | HMH.PTEV ---
Physical Therapy Evaluation Rehab PT IP Evaluation Start: 10/31/21 17:58 Freq: ONCE Status: Active Protocol: Document 11/01/21 09:25 PHORPATRICIA (Rec: 11/01/21 09:33 PHORNE [id number]) Subjective/History History History 66 yowm adm to [facility] after fall with R hip fx, now S/P R DIRK. He reports he is legally blind , but lives alone with no steps to enter the home and has a walker that he uses only when I need it. Subjective Subjective Pt with no c/o this am, he reports his R LE is not painful at rest currently. Rehab PT IP Eval Objective Appearance Patient Behavior Appropriate Patient Orientation Person,Place Difficulty following instructions none Speech Pattern Clear,Delayed Ambulation Patient Able to Ambulate Yes Ambulation Observation IP General Gait Pattern Observation Wide Based Gait,Shuffling Step Ambulation Distance (feet) 3 Ambulation Assistive Device Rolling Walker Ambulation Ability Minimal x 1 (25% assist) Balance Ability to Arise Able, uses arms to help Sitting Balance Leans or slides in chair Standing Balance Unsteady Dynamic Sitting Balance Ability Fair Dynamic Standing Balance Ability Poor Transfers Bed Transfer Ability Moderate x 1 (50% assist) Chair Transfer Ability Moderate x 1 (50% assist) Sit to Stand Bed Transfer Ability Moderate x 1 (50% assist) Sit to Stand Chair Transfer Ability Moderate x 1 (50% assist) Rehab PT IP prob,goals,plan Problems Date of Evaluation: 11/01/21 PT IP Problems Bed Mobility,Transfers,Gait, Balance,Self care,Safety Rehab Potential Rehab Potential Good Plan PT Intervention Plan Bed Mobility,Transfers,Gait, Balance,Self care,Safety, Therapeutic Exercise PT Plan Frequency BID Duration LOS Discharge Goals Bed Transfer Ability Minimal x 1 (25% assist) Sit to Stand Chair Transfer Ability Minimal x 1 (25% assist) Ambulation Assistive Device Rolling Walker Ambulation Distance (feet) 20 Discharge Plan PT Discharge Plan Pt is currently most appropriate for rehab placement once medically stable. G -code Required No Eval Complexity Eval Charge Codes 83552 - Moderate Complexity
--- NOTE | 2021-11-01 09:34 | HMH.OTEV ---
OT Inpatient Evaluation Rehab OT IP Evaluation Start: 10/31/21 17:58 Freq: ONCE Status: Complete Protocol: Document 11/01/21 09:26 ANDREA (Rec: 11/01/21 09:34 [facility] [id number]) Rehab OT IP Assessment Subjective History Pt oriented x 2 on arrival. Pt agreeable to engage in therapy evaluation. Pt was admitted via ED on 10/29/21 due to a fall at home resulting in a R hip fx. Pt had a right uncemented bipolar hemiarthroplasty on 10/31/21. Pt reports prior to his fall he lived at home alone. Pt claims she was independent with ADLs such as dressing, bathing, and feeding. However , he was dependent upon caregivers to complete all IADLs. Pt explains he had a woman come in 3x's a week and assist with IADLs (cleaning, cooking, laundry, etc). Pt has a walker at home, but does not use it. Subjective I can try to get up. Pt resting in bed. Pt required mod assist to complete bed mobility and go from supine to sitting at eob. Pt stood from eob with min assist x 2. Pt engaged in functional transfer from bed to chair with min assist and rolling walker. Pt did required max verbal cues for walker management and safety during transfer. Pt sat down in chair with min assist. Pt was left with call antunez and all other needs in reach. Objective Patient Orientation Person,Place,Birthday Upper Extremity Gross ROM Min Limitation <25% Shoulder ROM Limitations Muscle Weakness Elbow ROM Limitations Muscle Weakness Wrist Limitations of Range of Motion Muscle Weakness Bed Mobility bed mobility-scooting,bed mobility - supine/sit,bed mobility - rolling Assist Level Moderate x 2 (50% assist) Transfer Training Sit/Stand Transfer Joselin
--- NOTE | 2021-11-01 09:54 | HMH.ACPN2 ---
Internal Medicine - PN: Subj *Date: 11/01/21 *Time: 08:45 Interval history: pt working with pt Exam Vital signs and Labs for Last 24 Hours: Temp Pulse Resp BP Pulse Ox 97.4 F L 81 18 114/86 98 11/01/21 07:11 11/01/21 07:11 11/01/21 04:00 11/01/21 07:11 11/01/21 04:00 Laboratory Results - last 24 hr 11/01/21 06:38: WBC 8.8, RBC 2.71 L, Hgb 9.3 L, Hct 27.8 L, MCV 102.8 H, MCH 34.2 H, MCHC 33.3, RDW 12.8, Plt Count 359, MPV 8.2, Neut % (Auto) 70.9, Lymph % (Auto) 18.2, [place] % (Auto) 6.4, Eos % (Auto) 3.9, Baso % (Auto) 0.6, Neut # (Auto) 6.2, Lymph # (Auto) 1.6, [place] # (Auto) 0.6, Eos # (Auto) 0.3, Baso # (Auto) 0.1 11/01/21 06:38: Sodium 135 L, Potassium 3.7, Chloride 111 H, Carbon Dioxide 20 L, Anion Gap 7.7, BUN 14 D, Creatinine 0.60 L, Estimated Creat Clear 54, Estimated GFR 135, Est GFR ( Amer) 163, Glucose 97, Calcium 8.3 L, Total Bilirubin 0.6, AST 52 D, ALT 30 D, Alkaline Phosphatase 86, Total Protein 5.7 L D, Albumin 2.7 L, Globulin 3.0, Albumin/Globulin Ratio 0.9 L I & O for Last 24 hours: Intake & Output 10/29/21 10/30/21 10/31/21 11/01/21 11:59 11:59 11:59 11:59 Intake Total 1028 / 1028 2422 / 2422 Output Total 1600 / 1600 925 / 925 Balance -572 / -572 1497 / 1497 Weight 135 lb 115 lb 3.2 oz 117 lb 1.6 oz 116 lb 13.52 oz Microbiology Reports for the Last 24 Hours: Microbiology 10/29/21 14:20 Blood Blood Culture - Preliminary NO GROWTH AFTER 48 HOURS 10/29/21 14:20 Blood Blood Culture - Preliminary NO GROWTH AFTER 48 HOURS - Constitutional no acute distress, thin - *Routine HEENT Exam Head: Present: normocephalic Eye: Present: PERRL ENT: Present: mucous membranes moist - *Routine Neck Exam Present: supple. Absent: lymphadenopathy - *Routine Respiratory Exam Present: CTA bilaterally - *Routine Cardiovascular Exam Present: RRR - *Routine Abdominal Exam Present: soft, normoactive bowel sounds. Absent: tenderness - *Routine Extremities Exam Absent: cyanosis, clubbing, edema Comments: dressing to rt hip c/d/i - *Routine Skin Exam Present: wounds Comments: 3 wounds to buttocks - *Routine Neurological Exam Present: alert, oriented X3 Assessment and Plan (1) Low body mass index (BMI) Status: Acute Category: Medical (2) Closed right hip fracture Status: Acute Qualifiers: Encounter type: initial encounter Qualified Code(s): S72.001A - Fracture of unspecified part of neck of right femur, initial encounter for closed fracture Category: Medical Code(s): S72.001A - Fracture of unspecified part of neck of right femur, initial encounter for closed fracture (3) Anxiety Status: Acute Category: Medical Code(s): F41.9 - Anxiety disorder, unspecified (4) Blind Status: Acute Qualifiers: Right eye visual impairment category: right - unspecified impairment Left eye visual impairment category: left - unspecified blindness Qualified Code(s): H54.40 - Blindness, one eye, unspecified eye Category: Medical Code(s): H54.7 - Unspecified visual loss (5) Tobacco use Status: Acute Category: Social Hx Code(s): Z72.0 - Tobacco use - Assessment and plan all Dx Assessment and Plan for all problems:: rounded with dr gomez all orders per dr gomez continue PT ortho to follow
[2021-11-02] VITALS: BP 145/88; PULSE 98; RESP 17; TEMP 36.6; O2SAT 98
[2021-11-02 04:00] VITALS: BP 164/89; PULSE 102; RESP 17; TEMP 36.6; O2SAT 96
--- NOTE | 2021-11-02 04:14 | PC.NURSE ---
Patient rested throughout night. Patient medicated for pain per JUL. Dressing on rt hip is CDI. Wedge in place.
[2021-11-02 08:00] VITALS: BP 160/82; PULSE 104; RESP 16; TEMP 37.2; O2SAT 96; O2SAT 97
--- NOTE | 2021-11-02 08:34 | HMH.ORTHPN ---
Subjective Date: 11/02/21 Time: 08:34 Principal diagnosis: Right femoral neck fracture Interval history: Resting comfortably, no adverse events overnight, no complaints. Pain is tolerable. PN: Obj Ex Vital signs: Temp Pulse Resp BP Pulse Ox 97.9 F 102 H 17 164/89 H 96 11/02/21 04:00 11/02/21 04:00 11/02/21 04:00 11/02/21 04:00 11/02/21 04:00 - Constitutional no acute distress - Routine HEENT Exam Head: Present: normocephalic, atraumatic - Routine Neck Exam Present: supple - Routine Respiratory Exam Absent: accessory muscle use, respiratory distress - Routine Cardiovascular Exam Present: RRR - Detailed Lower Extremity Exam Hip: Right normal inspection (Lower extremity foam tape 4 x 4 Xeroform removed, underlying Prineo intact. Covaderm applied. Leg lengths grossly symmetric. Distally neurovascularly intact.) - Urinary Catheter Management Pantoja Cath placed during this visit: no Urethral indwelling: No Progress Note: A&P (1) Low body mass index (BMI) Status: Acute (2) Closed right hip fracture Status: Acute (3) Anxiety Status: Acute (4) Blind Status: Acute (5) Tobacco use Status: Acute Assessment and Plan for All Diagnoses:: Overall he is doing well from an orthopedic standpoint this morning. Continue PT/OT; patient may mobilize weightbearing as tolerated on the right lower extremity. Continue standard precautions for posterior approach to the hip. Continue DVT prophylaxis for 6 weeks postoperatively. Case management team coordinating discharge planning; patient is interested in short-term rehabilitation placement at a nursing facility. Continue medical management as per Dr. Castillo/Dr. Jimenez. Tentatively plan 2 week follow up for wound check / xrays with Dr. Caldera.
[2021-11-02 09:23] LABS: Basophils # 0.1 K/mm3 (0-0.2); Basophils % 0.6 % (0.1-2.0); Eosinophils # 0.4 K/mm3 (0.0-0.4); Eosinophils % 3.3 % (0.1-12.0); Hematocrit 28.7 % (42.0-52.0); Hemoglobin 9.6 g/dL (14.1-18.0); Lymphocytes # 1.8 K/mm3 (0.7-4.5); Lymphocytes % 15.2 % (10-50); Mean Corpuscular HGB Conc 33.6 g/dL (31.8-35.4); Mean Corpuscular Hemoglobin 34.3 pg (27.0-31.2); Mean Platelet Volume 8.3 fl (7.4-10.4); Monocytes # 0.9 K/mm3 (0.1-1.0); Monocytes % 7.3 % (1.7-9.3); Neutrophils # 8.6 K/mm3 (1.8-7.8); Neutrophils % 73.6 % (37.0-80.0); Platelet Count 430 K/mm3 (142-424); Red Blood Count 2.81 M/mm3 (4.60-6.20); Red Cell Distribution Width 13.2 % (11.5-17.5); White Blood Count 11.6 K/mm3 (4.8-10.8)
[2021-11-02 09:25] LABS: Chloride 108 mmol/L (98-107); Potassium 4.1 mmoL/L (3.5-5.1); Sodium 137 mmol/L (136-145)
[2021-11-02 09:28] LABS: Anion Gap 13.1 mEq/L (5-15); Blood Urea Nitrogen 8 mg/dl (9-20); Calcium 8.8 mg/dl (8.4-10.2); Carbon Dioxide 20 mmol/L (22.0-30.0); Creatinine Clearance Estimated 54 mL/min (50-200); Estimated Glomerular Filt Rate 113 ml/min (>60); GFR (African American) 137 ML/MIN (>60); Glucose 92 mg/dl (74-100)
--- NOTE | 2021-11-02 09:31 | P.PN_ITS ---
Internal Medicine - PN: Subj *Date: 11/02/21 *Time: 09:31 Exam Vital signs and Labs for Last 24 Hours: Temp Pulse Resp BP Pulse Ox 99.0 F 104 H 16 160/82 H 97 11/02/21 08:00 11/02/21 08:00 11/02/21 08:00 11/02/21 08:00 11/02/21 08:00 Laboratory Results - last 24 hr 11/02/21 08:00: WBC 11.6 H D, RBC 2.81 L, Hgb 9.6 L, Hct 28.7 L, MCV 102.0 H, MCH 34.3 H, MCHC 33.6, RDW 13.2, Plt Count 430 H, MPV 8.3, Neut % (Auto) 73.6, Lymph % (Auto) 15.2, [place] % (Auto) 7.3, Eos % (Auto) 3.3, Baso % (Auto) 0.6, Neut # (Auto) 8.6 H, Lymph # (Auto) 1.8, [place] # (Auto) 0.9, Eos # (Auto) 0.4, Baso # (Auto) 0.1 11/02/21 08:00: Sodium 137, Potassium 4.1, Chloride 108 H, Carbon Dioxide 20 L, Anion Gap 13.1, BUN 8 L D, Creatinine 0.70, Estimated Creat Clear 54, Estimated GFR 113, Est GFR ( Amer) 137, Glucose 92, Calcium 8.8 I & O for Last 24 hours: Intake & Output 10/30/21 10/31/21 11/01/21 11/02/21 23:59 23:59 23:59 23:59 Intake Total 1028 / 1028 1200 / 1200 192 / 1922 Output Total 1600 / 2225 925 / 925 Balance 1028 / 528 -400 / -1025 997 / 997 Weight 52.254 kg 53.116 kg 53 kg Assessment and Plan (1) Low body mass index (BMI) Status: Acute Category: Medical (2) Closed right hip fracture Status: Acute Qualifiers: Encounter type: initial encounter Qualified Code(s): S72.001A - Fracture of unspecified part of neck of right femur, initial encounter for closed fracture Category: Medical Code(s): S72.001A - Fracture of unspecified part of neck of right femur, initial encounter for closed fracture (3) Anxiety Status: Acute Category: Medical Code(s): F41.9 - Anxiety disorder, unspecified (4) Blind Status: Acute Qualifiers: Right eye visual impairment category: right - unspecified impairment Left eye visual impairment category: left - unspecified blindness Qualified Code(s): H54.40 - Blindness, one eye, unspecified eye Category: Medical Code(s): H54.7 - Unspecified visual loss (5) Tobacco use Status: Acute Category: Social Hx Code(s): Z72.0 - Tobacco use The patient's infection will respond to the chosen ABx?: Yes Is the patient receiving the right drug, dose, and route?: Yes Could a more targeted ABx be ordered?: No
[2021-11-02 11:51] VITALS: BP 115/62; PULSE 96; RESP 18; TEMP 36.8; O2SAT 97
--- NOTE | 2021-11-02 14:03 | HMH.ACPN2 ---
Internal Medicine - PN: Subj *Date: 11/02/21 *Time: 14:03 Interval history: voices no complaints ortho notes revd Exam Vital signs and Labs for Last 24 Hours: Temp Pulse Resp BP Pulse Ox 98.3 F 96 H 18 115/62 97 11/02/21 11:51 11/02/21 11:51 11/02/21 11:51 11/02/21 11:51 11/02/21 11:51 Laboratory Results - last 24 hr 11/02/21 08:00: WBC 11.6 H D, RBC 2.81 L, Hgb 9.6 L, Hct 28.7 L, MCV 102.0 H, MCH 34.3 H, MCHC 33.6, RDW 13.2, Plt Count 430 H, MPV 8.3, Neut % (Auto) 73.6, Lymph % (Auto) 15.2, [place] % (Auto) 7.3, Eos % (Auto) 3.3, Baso % (Auto) 0.6, Neut # (Auto) 8.6 H, Lymph # (Auto) 1.8, [place] # (Auto) 0.9, Eos # (Auto) 0.4, Baso # (Auto) 0.1 11/02/21 08:00: Sodium 137, Potassium 4.1, Chloride 108 H, Carbon Dioxide 20 L, Anion Gap 13.1, BUN 8 L D, Creatinine 0.70, Estimated Creat Clear 54, Estimated GFR 113, Est GFR ( Amer) 137, Glucose 92, Calcium 8.8 I & O for Last 24 hours: Intake & Output 10/30/21 10/31/21 11/01/21 11/02/21 23:59 23:59 23:59 23:59 Intake Total 1028 / 1028 1200 / 1200 1922 / 1922 240 / 240 Output Total 1600 / 2225 925 / 925 Balance 1028 / 528 -400 / -1025 997 / 997 240 / 240 Weight 115 lb 3.2 oz 117 lb 1.6 oz 116 lb 13.52 oz - Constitutional thin, chronically ill appearing - *Routine HEENT Exam Head: Present: normocephalic Eye: Present: EOMI, PERRL, other ENT: Present: mucous membranes moist - *Routine Neck Exam Present: supple. Absent: lymphadenopathy - *Routine Respiratory Exam Present: CTA bilaterally - *Routine Cardiovascular Exam Present: RRR - *Routine Abdominal Exam Present: soft, normoactive bowel sounds. Absent: tenderness - *Routine Extremities Exam Present: tenderness. Absent: full ROM, calf tenderness - *Routine Skin Exam Present: warm. Absent: rash - *Routine Neurological Exam Present: alert, oriented X3 Assessment and Plan (1) Low body mass index (BMI) Status: Acute Category: Medical (2) Closed right hip fracture Status: Acute Qualifiers: Encounter type: initial encounter Qualified Code(s): S72.001A - Fracture of unspecified part of neck of right femur, initial encounter for closed fracture Category: Medical Code(s): S72.001A - Fracture of unspecified part of neck of right femur, initial encounter for closed fracture (3) Anxiety Status: Acute Category: Medical Code(s): F41.9 - Anxiety disorder, unspecified (4) Blind Status: Acute Qualifiers: Right eye visual impairment category: right - unspecified impairment Left eye visual impairment category: left - unspecified blindness Qualified Code(s): H54.40 - Blindness, one eye, unspecified eye Category: Medical Code(s): H54.7 - Unspecified visual loss (5) Tobacco use Status: Acute Category: Social Hx Code(s): Z72.0 - Tobacco use - Assessment and plan all Dx Assessment and Plan for all problems:: continue regimen with plans for placement when appropriate
[2021-11-02 16:00] VITALS: BP 114/77; PULSE 93; RESP 18; TEMP 37; O2SAT 100
[2021-11-02 20:00] VITALS: BP 154/91; PULSE 110; RESP 18; TEMP 37.4; O2SAT 98
[2021-11-03] VITALS: BP 100/72; PULSE 101; RESP 18; TEMP 37.4; O2SAT 97
[2021-11-03 04:00] VITALS: BP 94/57; PULSE 94; RESP 18; TEMP 37.1; O2SAT 94
--- NOTE | 2021-11-03 05:16 | PC.NURSE ---
Pt A&O x 4. Pt is confused at times and talks to himself periodically but answers orientation questions appropriately. Pt has rested on and off during my shift. Medicated per MAR for pain w/ favorable results. IV infusing per order. Wedge in place. Pt is voiding per urinal but also has episodes of incontinence. Dressing to R hip is c/d/i. Bed alarm on, seizure pads in place. Turning q2hrs, when pt allows. Pt has refused to let us turn him in bed multiple times this shift, explained to pt risks of not turning in bed such as developing sores, pt stated if we try to turn him he will give us a sore. Call light in reach. No needs or complaints voiced at this time.
[2021-11-03 08:00] VITALS: BP 90/51; PULSE 89; RESP 18; TEMP 37.1; O2SAT 94; O2SAT 98
[2021-11-03 08:26] LABS: Basophils # 0.1 K/mm3 (0-0.2); Basophils % 1.2 % (0.1-2.0); Eosinophils # 0.6 K/mm3 (0.0-0.4); Eosinophils % 5.9 % (0.1-12.0); Hematocrit 26.7 % (42.0-52.0); Hemoglobin 9.2 g/dL (14.1-18.0); Lymphocytes # 2.4 K/mm3 (0.7-4.5); Lymphocytes % 23.7 % (10-50); Mean Corpuscular HGB Conc 34.3 g/dL (31.8-35.4); Mean Corpuscular Hemoglobin 34.3 pg (27.0-31.2); Mean Platelet Volume 7.9 fl (7.4-10.4); Monocytes # 0.7 K/mm3 (0.1-1.0); Monocytes % 7.2 % (1.7-9.3); Neutrophils # 6.4 K/mm3 (1.8-7.8); Neutrophils % 61.9 % (37.0-80.0); Platelet Count 477 K/mm3 (142-424); Red Blood Count 2.67 M/mm3 (4.60-6.20); Red Cell Distribution Width 13.1 % (11.5-17.5); White Blood Count 10.3 K/mm3 (4.8-10.8)
[2021-11-03 08:32] LABS: Chloride 108 mmol/L (98-107); Potassium 3.4 mmoL/L (3.5-5.1); Sodium 137 mmol/L (136-145)
[2021-11-03 08:35] LABS: Anion Gap 8.4 mEq/L (5-15); Calcium 8.7 mg/dl (8.4-10.2); Carbon Dioxide 24 mmol/L (22.0-30.0); Glucose 138 mg/dl (74-100)
[2021-11-03 08:40] LABS: Creatinine Clearance Estimated 54 mL/min (50-200); Estimated Glomerular Filt Rate 113 ml/min (>60); GFR (African American) 137 ML/MIN (>60)
[2021-11-03 09:43] LABS: Blood Urea Nitrogen 13 mg/dl (9-20)
--- NOTE | 2021-11-03 15:36 | HMH.ACPN2 ---
Internal Medicine - PN: Subj *Date: 11/03/21 *Time: 15:36 Interval history: uneventful night voices no complaints wedge remains in place Exam Vital signs and Labs for Last 24 Hours: Temp Pulse Resp BP Pulse Ox 98.7 F 89 18 90/51 L 98 11/03/21 08:00 11/03/21 08:00 11/03/21 08:00 11/03/21 08:00 11/03/21 08:00 Laboratory Results - last 24 hr 11/03/21 07:36: WBC 10.3, RBC 2.67 L, Hgb 9.2 L, Hct 26.7 L, MCV 100.0 H, MCH 34.3 H, MCHC 34.3, RDW 13.1, Plt Count 477 H, MPV 7.9, Neut % (Auto) 61.9, Lymph % (Auto) 23.7, [place] % (Auto) 7.2, Eos % (Auto) 5.9, Baso % (Auto) 1.2, Neut # (Auto) 6.4, Lymph # (Auto) 2.4, [place] # (Auto) 0.7, Eos # (Auto) 0.6 H, Baso # (Auto) 0.1 11/03/21 07:36: Sodium 137, Potassium 3.4 L, Chloride 108 H, Carbon Dioxide 24, Anion Gap 8.4, BUN 13 D, Creatinine 0.70, Estimated Creat Clear 54, Estimated GFR 113, Est GFR ( Amer) 137, Glucose 138 H D, Calcium 8.7 I & O for Last 24 hours: Intake & Output 10/31/21 11/01/21 11/02/21 11/03/21 23:59 23:59 23:59 23:59 Intake Total 1200 / 1200 1922 / 1922 240 / 240 Output Total 1600 / 2225 925 / 925 300 / 700 400 / 400 Balance -400 / -1025 997 / 997 -60 / -460 -400 / -400 Weight 117 lb 1.6 oz 116 lb 13.52 oz Microbiology Reports for the Last 24 Hours: Microbiology 10/29/21 14:20 Blood Blood Culture - Final NO GROWTH AFTER 5 DAYS 10/29/21 14:20 Blood Blood Culture - Final NO GROWTH AFTER 5 DAYS - Constitutional no acute distress, thin, chronically ill appearing - *Routine HEENT Exam Head: Present: normocephalic Eye: Present: EOMI, PERRL ENT: Present: mucous membranes moist - *Routine Neck Exam Present: supple. Absent: lymphadenopathy - *Routine Respiratory Exam Present: CTA bilaterally - *Routine Cardiovascular Exam Present: RRR - *Routine Abdominal Exam Present: soft, normoactive bowel sounds. Absent: tenderness - *Routine Extremities Exam Absent: calf tenderness - *Routine Skin Exam Comments: see pictures - *Routine Neurological Exam Present: alert, oriented X3, hearing grossly intact, normal speech. Absent: vision grossly intact Assessment and Plan (1) Low body mass index (BMI) Status: Acute Category: Medical (2) Closed right hip fracture Status: Acute Qualifiers: Encounter type: initial encounter Qualified Code(s): S72.001A - Fracture of unspecified part of neck of right femur, initial encounter for closed fracture Category: Medical Code(s): S72.001A - Fracture of unspecified part of neck of right femur, initial encounter for closed fracture (3) Anxiety Status: Acute Category: Medical Code(s): F41.9 - Anxiety disorder, unspecified (4) Blind Status: Acute Qualifiers: Right eye visual impairment category: right - unspecified impairment Left eye visual impairment category: left - unspecified blindness Qualified Code(s): H54.40 - Blindness, one eye, unspecified eye Category: Medical Code(s): H54.7 - Unspecified visual loss (5) Tobacco use Status: Acute Category: Social Hx Code(s): Z72.0 - Tobacco use - Assessment and plan all Dx Assessment and Plan for all problems:: continue regimen following w/ortho placement/rehab
[2021-11-03 16:00] VITALS: BP 94/63; PULSE 86; RESP 20; TEMP 36.9; O2SAT 94
[2021-11-03 20:00] VITALS: BP 108/64; PULSE 93; RESP 18; TEMP 37.1; O2SAT 93
[2021-11-04] VITALS: BP 95/60; PULSE 88; RESP 16; TEMP 36.8; O2SAT 92
--- NOTE | 2021-11-04 03:33 | PC.NURSE ---
No acute events thus far during my shift. Turning q 2 hrs, pt has been more cooperative this shift. IV infusing per order. Pt voids per urinal at times, other times incontinent. Wedge in place. Drsg to R hip c/d/i. Medicated per JUL for pain with adequate relief per pt. Pt has slept in intervals. No complaints or needs voiced at this time.
[2021-11-04 04:00] VITALS: BP 95/68; PULSE 84; RESP 18; TEMP 36.9; O2SAT 95
--- NOTE | 2021-11-04 07:25 | HMH.ORTHPN ---
Subjective Date: 11/04/21 Time: 07:05 Principal diagnosis: Right femoral neck fracture Interval history: Patient is a 66-year-old male admitted to the acute inpatient service following an uneventful right hip hemiarthroplasty yesterday 10/31/2021. Today the patient is postop day #4. This morning he is lying comfortably in bed and his sister is present at the bedside. He reports some pain in his right hip, but states that it is well controlled with rest and as needed pain medication. He reports that he is eating and drinking well and denies any episodes of nausea or vomiting. He reports that over the weekend he has ambulated a little with the assistance of physical therapy and that this is going well. He denies any history of fevers, chills, rigors, or distal tingling/numbness. He denies any other symptoms or concerns at this time. PN: Obj Ex Vital signs: Temp Pulse Resp BP Pulse Ox 98.4 F 84 18 95/68 L 95 11/04/21 04:00 11/04/21 04:00 11/04/21 04:00 11/04/21 04:00 11/04/21 04:00 - Constitutional no acute distress, thin, cooperative - Routine HEENT Exam Head: Present: normocephalic, atraumatic Eye: Present: EOMI, PERRL ENT: Present: mucous membranes moist - Routine Neck Exam Present: supple, trachea midline. Absent: full ROM, JVD, lymphadenopathy - Routine Respiratory Exam Absent: accessory muscle use, respiratory distress Comments: symmetric chest movement, able to speak in complete sentences - Routine Cardiovascular Exam Present: RRR Comments: normal peripheral pulses - Routine Abdominal Exam Present: soft. Absent: tenderness - Routine Extremities Exam Comments: Upon examination of the lower extremities: The limb lengths are equal. Dressings present over the right hip are clean, dry, and intact. No evidence of drainage or bleeding noted. The right hip and proximal femur are tender to palpation. Attempted movements of the right hip are somewhat painful. Thigh and calf are soft and nontender; Homans' sign is negative. No clinical evidence of DVT. Posterior tibial pulse 1+; capillary refill is brisk. Sensation to light touch is grossly intact throughout. Patient is actively mobilizing the foot, ankle, and toes. - Routine Skin Exam Present: intact, warm, normal turgor. Absent: cyanosis, erythema, lesions, jaundice - Routine Neurological Exam Present: alert, oriented X3, CN II-XII intact, moving all extremities, normal tone, normal speech. Absent: sensory deficit, motor deficit, altered mental status - Routine Psychiatric Exam Present: normal affect, cooperative - Urinary Catheter Management Pantoja Cath placed during this visit: no Urethral indwelling: No Progress Note: A&P (1) Low body mass index (BMI) Status: Acute (2) Closed right hip fracture Status: Acute (3) Anxiety Status: Acute (4) Blind Status: Acute (5) Tobacco use Status: Acute Assessment and Plan for All Diagnoses:: I have reviewed the clinical findings and progress with the patient and his sister. Overall he is doing well from an orthopedic standpoint this morning and can be discharged when medically appropriate. Dressings over the right hip are clean, dry, intact. The patient has a Dermabond Prineo skin closure system in place, appropriate care instructions have been given. I have advised the patient that in a couple of days the sterile bordered gauze may be removed and at that stage it is permissible to get the surgical incision wet with shower water; after showering, pat the incision dry and do not apply any lotions or creams. Continue PT/OT today; patient may mobilize weightbearing as tolerated on the right lower extremity. Continue standard precautions for a posterior approach to the hip. I have advised the patient to use the abduction pillow when in bed/lying down for 6 weeks postoperatively. Continue DVT prophylaxis for 6 weeks postoperatively. Continue rest, ice, and as needed p
[2021-11-04 08:00] VITALS: BP 108/53; PULSE 94; RESP 18; TEMP 37; O2SAT 94; O2SAT 96
--- NOTE | 2021-11-04 12:46 | HMH.ACPN2 ---
Internal Medicine - PN: Subj *Date: 11/04/21 *Time: 12:46 Interval history: pt with recent hip fx repair - doing ok - working with tharapy will need rehab Exam Vital signs and Labs for Last 24 Hours: Temp Pulse Resp BP Pulse Ox 98.6 F 94 H 18 108/53 L 96 11/04/21 08:00 11/04/21 08:00 11/04/21 08:00 11/04/21 08:00 11/04/21 08:00 I & O for Last 24 hours: Intake & Output 11/02/21 11/03/21 11/04/21 11/05/21 11:59 11:59 11:59 11:59 Intake Total 600 / 600 360 / 360 960 / 960 Output Total 800 / 800 Balance 600 / 600 -440 / -440 960 / 960 Microbiology Reports for the Last 24 Hours: Microbiology 10/29/21 14:20 Blood Blood Culture - Final NO GROWTH AFTER 5 DAYS 10/29/21 14:20 Blood Blood Culture - Final NO GROWTH AFTER 5 DAYS - Constitutional no acute distress - *Routine HEENT Exam Head: Present: normocephalic Eye: Present: EOMI, PERRL ENT: Present: mucous membranes dry - *Routine Neck Exam Absent: JVD - *Routine Respiratory Exam Present: rhonchi - *Routine Cardiovascular Exam Present: RRR, murmur - *Routine Abdominal Exam Present: soft - *Routine Extremities Exam Absent: calf tenderness - *Routine Skin Exam Present: intact - *Routine Neurological Exam Present: alert, CN II-XII intact - Routine Psychiatric Exam Present: cooperative Assessment and Plan (1) Low body mass index (BMI) Status: Acute Category: Medical (2) Closed right hip fracture Status: Acute Qualifiers: Encounter type: initial encounter Qualified Code(s): S72.001A - Fracture of unspecified part of neck of right femur, initial encounter for closed fracture Category: Medical Code(s): S72.001A - Fracture of unspecified part of neck of right femur, initial encounter for closed fracture (3) Anxiety Status: Acute Category: Medical Code(s): F41.9 - Anxiety disorder, unspecified (4) Blind Status: Acute Qualifiers: Right eye visual impairment category: right - unspecified impairment Left eye visual impairment category: left - unspecified blindness Qualified Code(s): H54.40 - Blindness, one eye, unspecified eye Category: Medical Code(s): H54.7 - Unspecified visual loss (5) Tobacco use Status: Acute Category: Social Hx Code(s): Z72.0 - Tobacco use
--- NOTE | 2021-11-04 14:49 | PC.NURSE ---
rounded on patient he was up to chair and about to be assisted back to bed. no complaints or concerns. no questions regarding meds or plan of care. some moments of confusion noted.
[2021-11-04 16:00] VITALS: BP 122/74; PULSE 88; RESP 18; TEMP 36.7; O2SAT 95
[2021-11-04 20:00] VITALS: BP 106/61; PULSE 94; RESP 20; TEMP 36.8; O2SAT 93
[2021-11-05 04:00] VITALS: BP 106/62; PULSE 91; RESP 18; TEMP 36.8; O2SAT 98
--- NOTE | 2021-11-05 04:59 | PC.NURSE ---
Pt noted mumbling and talking to himself al night long. PT would have full conversations with himself. Pt is upset at his insurance company. Pt was incont. and was a turn wiht check and change. PT stated that he could use the urinal but did not want to. dressing to buttocks was removed and replaced. Pt tolerated well.
[2021-11-05 05:00] VITALS: BMI 19.6
--- NOTE | 2021-11-05 07:23 | HMH.ORTHPN ---
Subjective Date: 11/05/21 Time: 06:55 Principal diagnosis: Right femoral neck fracture Interval history: Patient is a 66-year-old male admitted to the acute inpatient service following an uneventful right hip hemiarthroplasty on 10/31/2021. Today the patient is postop day #5. This morning he is lying comfortably in bed. He reports some pain in his right hip, but states that it is well controlled with rest and as needed pain medication. He reports that he is eating and drinking well and denies any episodes of nausea or vomiting. He states that he has been ambulating with the assistance of physical therapy and that this is going well. He denies any history of fevers, chills, rigors, or distal tingling/numbness. He denies any other symptoms or concerns at this time. PN: Obj Ex Vital signs: Temp Pulse Resp BP Pulse Ox 98.3 F 91 H 18 106/62 L 98 11/05/21 04:00 11/05/21 04:00 11/05/21 04:00 11/05/21 04:00 11/05/21 04:00 - Constitutional no acute distress, thin, cooperative - Routine HEENT Exam Head: Present: normocephalic, atraumatic Eye: Present: EOMI, PERRL ENT: Present: mucous membranes moist - Routine Neck Exam Present: supple, full ROM, trachea midline. Absent: JVD, lymphadenopathy - Routine Respiratory Exam Absent: accessory muscle use, respiratory distress Comments: Symmetric chest movement, able to speak in complete sentences - Routine Cardiovascular Exam Present: RRR Comments: Normal peripheral pulses - Routine Abdominal Exam Present: soft. Absent: tenderness - Routine Extremities Exam Comments: Upon examination of the lower extremities: The limb lengths are equal. Dressings present over the right hip are clean, dry, and intact. No evidence of drainage or bleeding noted. The right hip and proximal femur are tender to palpation. Attempted movements of the right hip are somewhat painful. Thigh and calf are soft and nontender; Homans' sign is negative. No clinical evidence of DVT. Posterior tibial pulse 1+; capillary refill is brisk. Sensation to light touch is grossly intact throughout. Patient is actively mobilizing the foot, ankle, and toes. - Routine Skin Exam Present: intact, warm, normal turgor. Absent: cyanosis, erythema, lesions, jaundice - Routine Neurological Exam Present: alert, oriented X3, CN II-XII intact, moving all extremities, normal tone, normal speech. Absent: sensory deficit, motor deficit, altered mental status - Routine Psychiatric Exam Present: normal affect, cooperative - Urinary Catheter Management Pantoja Cath placed during this visit: no Urethral indwelling: No Progress Note: A&P (1) Low body mass index (BMI) Status: Acute (2) Closed right hip fracture Status: Acute (3) Anxiety Status: Acute (4) Blind Status: Acute (5) Tobacco use Status: Acute Assessment and Plan for All Diagnoses:: I have reviewed the clinical findings and progress with the patient. Overall he is doing well from an orthopedic standpoint this morning and can be discharged when medically appropriate. Dressings over the right hip are clean, dry, intact. The patient has a Dermabond Prineo skin closure system in place, appropriate care instructions have been given. I have advised the patient that in a day or two the sterile bordered gauze may be removed and at that stage it is permissible to get the surgical incision wet with shower water; after showering, pat the incision dry and do not apply any lotions or creams. Continue PT/OT today; patient may mobilize weightbearing as tolerated on the right lower extremity. Continue standard precautions for a posterior approach to the hip. I have advised the patient to use the abduction pillow when in bed/lying down for 6 weeks postoperatively. Continue DVT prophylaxis for 6 weeks postoperatively. Continue rest, ice, and as needed pain medication. All questions were answered and the patient and his sister verbalized
[2021-11-05 08:00] VITALS: BP 111/70; PULSE 91; RESP 17; TEMP 37.1; O2SAT 98; O2SAT 99
--- NOTE | 2021-11-05 08:55 | PC.NURSE ---
During am assessment pt notified this RN that he had not had a BM in a long time . Dr Castillo was notified at 0835. new orders to be entered for meds.
--- NOTE | 2021-11-05 10:33 | PC.NURSE ---
while informing pt and family of meds ordered for constipation, pt stated that he wanted to wait and see if he had any outcome from the miralax and docusate before taking the suppository. [id number]
--- NOTE | 2021-11-05 14:23 | HMH.DCSUM ---
General - General Admission date:: 10/29/21 Discharge date: 11/05/21 HPI HPI: this patient presented to the [facility] for rehabilitation ed -pt fell with acute rt hip pain and was found to have hip fx and was admitted for surg eval and treatment - pt reported trip type injury Hospital Course Hospital Course: Right hip x-ray reveals right femoral neck fracture Head and spine CT revealed no acute findings 10/31/21: Uncemented bipolar hemiarthroplasty, right hip Surgeon:: Jamshid Caldera MD Clinical Note:: Patient is a 66-year-old male who sustained a displaced intracapsular fracture neck of right femur following a fall at home few days ago. He presented late to the hospital and declined to undergo surgery yesterday. He eventually agreed to proceed with surgical remediation today. A hemiarthroplasty is indicated to relieve pain and restore function. The operation is clinically indicated and is the standard of care for this type of fracture. Please refer to my consult note for full details. Operative findings:: Displaced sub capital femoral neck fracture of the right hip as noted on the preoperative hip x-rays. The articular cartilage of the acetabulum is well preserved without evidence of significant arthritis. The proximal femur bone quality is good. Cardiology has seen and recommends: Assessment and Plan for all problems:: Pre-Op eval - Echo10/30/2021- EF 50-55, mild MR and TR, no change from previous echo Closed Hip fracture - Surgical repair pending Tobacco use -counseled on smoking cessation HTN - Continue home lisinopril 10mg QD HLD - high dose statin Patient is cardiac cleared for surgery. Contact service as needed. Ortho has seen and recommends: I have reviewed the clinical findings and progress with the patient. Overall he is doing well from an orthopedic standpoint this morning and can be discharged when medically appropriate. Dressings over the right hip are clean, dry, intact. The patient has a Dermabond Prineo skin closure system in place, appropriate care instructions have been given. I have advised the patient that in a day or two the sterile bordered gauze may be removed and at that stage it is permissible to get the surgical incision wet with shower water; after showering, pat the incision dry and do not apply any lotions or creams. Continue PT/OT today; patient may mobilize weightbearing as tolerated on the right lower extremity. Continue standard precautions for a posterior approach to the hip. I have advised the patient to use the abduction pillow when in bed/lying down for 6 weeks postoperatively. Continue DVT prophylaxis for 6 weeks postoperatively. Continue rest, ice, and as needed pain medication. All questions were answered and the patient and his sister verbalized a good understanding. Case management team coordinating discharge planning; patient is interested in short-term rehabilitation placement at a nursing facility. We will see the patient in our office for his first postoperative follow up in approximately 1 week for repeat xray and reevaluation; the patient has an appointment in our office on 11/13/2021 at 09:15. Continue medical management as per Dr. Castillo/Dr. Jimenez. Low body mass index (BMI) Dietary has seen and discussed better food options/portions with patient l Closed right hip fracture An Uncemented bipolar hemiarthroplasty, right hip was performed he tolerated without any complications. Has been actively participating in physical therapy and verbalizes understanding instructions of using wedge pillow at all times Anxiety Discharge On Wellbutrin and PCP will [facility] for any increased anxiety Tobacco use Long discussions regarding tobacco cessation he reports he will think about it and we will discuss at jail on upcoming visits 56-year-old male patient resting in bed quietly with wedge pillow between legs, he reports pain is at a cally
--- NOTE | 2021-11-05 15:12 | PC.NURSE ---
rounded on patient. educated on acceptance to rehab facility. no concerns or questions about care. encouraged ring with any needs
[2021-11-05 15:15] VITALS: BP 92/66; PULSE 89; RESP 17; TEMP 36.9; O2SAT 100
--- NOTE | 2021-11-05 16:06 | PC.NURSE ---
report called to Ava at [facility]. 1550. states pt has to be at [facility] by 1700. awaiting order to be finalized by Marlen Hollis
--- NOTE | 2021-11-05 16:08 | PC.NURSE ---
report given to Brenda Go RN and Marlen Neumann RNA at 1539
--- NOTE | 2021-11-06 16:12 | CARE MANAGER ---
Called and spoke with Rika [facility]. She stated that patient was doing well and had no needs at this time.
== END 2021-11-05 17:09 | DRG 522 ==
LOC: ER 14:33 → 2ND 22:00
PROVIDERS: Nurse Practitioner Family; Orthopaedic Surgery; Admitting Provider Emergency Medicine; Emergency Provider Emergency Medicine; PCP Emergency Medicine; Visit Provider Emergency Medicine
PROC: 0SRR0JA Replacement of Right Hip Joint, Femoral Surface with Synthetic Substitute, Uncemented, Open Approach (ICD-10-PCS; principal; 2021-10-31 13:30)
DX: S72.011A Unspecified intracapsular fracture of right femur, initial encounter for closed fracture (principal); W01.0XXA Fall on same level from slipping, tripping and stumbling without subsequent striking against object, initial encounter; F41.9 Anxiety disorder, unspecified; H54.40 Blindness, one eye, unspecified eye; F17.210 Nicotine dependence, cigarettes, uncomplicated; E78.5 Hyperlipidemia, unspecified; Z71.6 Tobacco abuse counseling; I10 Essential (primary) hypertension
CPT/HCPCS: 27236; 36415; 70450; 71045; 72125; 73502; 80048; 80053; 81001; 83605; 85007; 85025; 86850; 87040; 93005; 93306; 97110; 97116; 97162; 97166; 97530; 99285; C1713; C1776; C9803; J0696; J2405; J2704; J3370; U0003; U0005

== ENCOUNTER → 2021-11-19 09:51 | Outpatient (CLI) | payer MEDICARE, SELFPAY ==
--- NOTE | 2021-11-19 09:55 | XR_ITS ---
FINAL REPORT CLINICAL HISTORY: s/p rt DIRK on 10/31/2021 COMPARISON: October 31, 2021 FINDINGS: RIGHT HIP Two views demonstrate postoperative changes from right hip arthroplasty. There is no acute fracture. There is no dislocation. There are vascular calcifications. IMPRESSION: Postoperative change with no acute bony abnormality. Reviewed, Interpreted and Dictated by Josue Lazo III, MD Transcribed by Fern Meade Authenticated and [facility]
== END ==
PROVIDERS: PCP Emergency Medicine; Visit Provider Physician Assistant Surgical
DX: M25.551 Pain in right hip (principal)
CPT/HCPCS: 73502

== ENCOUNTER → 2021-12-17 10:00 | Outpatient (CLI) | payer MEDICARE, SELFPAY ==
--- NOTE | 2021-12-17 10:06 | XR_ITS ---
FINAL REPORT CLINICAL HISTORY: s/p rt hip COMPARISON: November 19, 2021 FINDINGS: Two views of the right hip with an AP pelvis were obtained. There is no acute fracture or dislocation. Again seen are changes of right hip arthroplasty. The hardware is intact. Remaining osseous pelvis is within normal limits. Vascular calcifications are noted. IMPRESSION: No acute osseous abnormality of the right hip. Reviewed, Interpreted and Dictated by Cortney Sanchez MD Transcribed by Tran Friedman Authenticated and . [facility]
== END ==
PROVIDERS: PCP Emergency Medicine; Visit Provider Orthopaedic Surgery
DX: Z09 Encounter for follow-up examination after completed treatment for conditions other than malignant neoplasm (principal); M25.551 Pain in right hip
CPT/HCPCS: 73502

== ENCOUNTER → 2021-12-24 16:23 | Outpatient (CLI) | payer MEDICARE, SELFPAY ==
[2021-12-24 15:01] LABS: Basophils # 0.1 K/mm3 (0-0.2); Eosinophils # 0.3 K/mm3 (0.0-0.4); Eosinophils % 3.1 % (0.1-12.0); Hematocrit 39.6 % (42.0-52.0); Hemoglobin 12.3 g/dL (14.1-18.0); Lymphocytes % 23.2 % (10-50); Mean Corpuscular Hemoglobin 32.5 pg (27.0-31.2); Mean Platelet Volume 8.4 fl (7.4-10.4); Monocytes # 0.7 K/mm3 (0.1-1.0); Monocytes % 7.8 % (1.7-9.3); Neutrophils # 5.5 K/mm3 (1.8-7.8); Platelet Count 493 K/mm3 (142-424); Red Blood Count 3.77 M/mm3 (4.60-6.20); Red Cell Distribution Width 13.6 % (11.5-17.5); White Blood Count 8.5 K/mm3 (4.8-10.8)
[2021-12-24 15:23] LABS: Free T4 (Free Thyroxine) 0.84 ng/dl (0.78-2.19)
[2021-12-24 17:11] LABS: T4 (Thyroxine) 9.3 ug/dl (5.53-11.0)
[2021-12-24 17:24] LABS: Thyroid Stimulating Hormone 0.22 uIU/mL (0.465-4.68)
== END ==
PROVIDERS: PCP Family Medicine; Visit Provider Family Medicine
DX: E78.5 Hyperlipidemia, unspecified (principal); I10 Essential (primary) hypertension; S06.0X0A Concussion without loss of consciousness, initial encounter; Z79.899 Other long term (current) drug therapy
CPT/HCPCS: 84436; 84439; 84443; 85025

== ENCOUNTER → 2022-03-06 13:56 | Outpatient (CLI) | payer MEDICARE, SELFPAY | PROVIDERS: PCP Family Medicine; Visit Provider Family Medicine | DX: L08.89 Other specified local infections of the skin and subcutaneous tissue (principal); B96.4 Proteus (mirabilis) (morganii) as the cause of diseases classified elsewhere | CPT/HCPCS: 87070; 87186; 87205 ==

== ENCOUNTER 2022-07-08 14:54 | Emergency (ER) | payer MEDICARE, SELFPAY ==
[2022-07-08] VITALS (12 sets, daily range): BP systolic 72–103; BP diastolic 41–70; PULSE 88–99; RESP 14–16; TEMP 36.6; O2SAT 90–96; BMI 16.8
--- NOTE | 2022-07-08 14:58 | PC.NURSE ---
AKUA ARCE at
--- NOTE | 2022-07-08 15:04 | CT_ITS ---
FINAL REPORT TECHNIQUE: Thin section axial images were obtained from skull base to vertex without contrast. Coronal reconstruction images were obtained from the axial data. Exam was performed using dose reduction technique. CLINICAL HISTORY: seizure COMPARISON: 10/29/2021 FINDINGS: There is atrophy with ventricular enlargement, stable from prior. There is no mass effect or midline shift. There is no intracranial hemorrhage. There is no hydrocephalus. There is bifrontal, right greater than left encephalomalacia unchanged from prior, likely related to old ischemia. The basilar cisterns are preserved. There is a hypodensity in the left jovanni, favor artifact. There is increased density within the posterior left globe, unchanged. There are postoperative changes to the left globe. No acute osseous abnormality is identified. IMPRESSION: Chronic findings. No evidence of intracranial hemorrhage. 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 Reviewed, Interpreted and Dictated by Cortney Sanchez MD Transcribed by Marcela Pantoja Authenticated and [facility]
--- NOTE | 2022-07-08 15:06 | HMH.EDGENADL ---
Discharge Plan Disposition Patient Disposition: Home, Self-Care Condition: Good Prescriptions Prescriptions: No Action acetaminophen 500 mg tablet 500 mg PO Q6H PRN mirtazapine 7.5 mg tablet 7.5 mg PO HS lisinopril 10 mg tablet 10 mg PO DAILY cholecalciferol (vitamin D3) 1,250 mcg (50,000 unit) capsule 1,250 mcg PO WEEKLY Qty: 14 10RF levetiracetam 500 mg tablet 500 mg PO BID Qty: 180 3RF gabapentin 600 mg tablet 600 mg PO TID Qty: 90 5RF bupropion HCl 75 mg tablet See Rx Instructions .ROUTE .COMPLEX Qty: 180 2RF Dose Instruction: TAKE ONE TABLET BY MOUTH TWICE DAILY Rx Instructions: TAKE ONE TABLET BY MOUTH TWICE DAILY gabapentin 600 mg tablet 600 mg PO TID Qty: 90 5RF hydrocodone-acetaminophen 5-325 mg tablet See Rx Instructions .ROUTE .COMPLEX Qty: 60 0RF Rx Instructions: one tablet bid prn pain diazepam 5 mg tablet 5 mg PO BIDP PRN (Reason: anxiety) Qty: 60 5RF dronabinol [Marinol] 2.5 mg capsule 2.5 mg PO BID Qty: 60 1RF Rx Instructions: administer before lunch and evening meal/dinner 5'8 114 lbs and losing weight sumatriptan succinate 25 MG tablet 25 mg PO NEEDED PRN (Reason: Headache) Rx Instructions: TAKE 1 TABLET BY MOUTH AT ONSET OF MIGRAINE. MAY REPEAT ONCE AFTER 2 HOURS IF NEEDED -MAX OF 4 TABLETS IN 24 HOURS- topiramate 25 MG tablet 25 mg PO HS fluticasone propionate 16 GM spray,suspension 1 spray NS DAILY loratadine 10 MG tablet 10 mg PO DAILY albuterol sulfate 6.7 GM HFA aerosol inhaler 1 puff IH QIDP PRN (Reason: shortness of breath or wheezing) carvedilol 6.25 MG tablet 6.25 mg PO BID Referrals Follow up/Referrals: Provider,Referral, MD [Primary Care Provider] - See instructions Activity Restrictions/Add. Instructions Additional Instructions/Restrictions: Drink plenty of fluids. Follow-up with primary care provider this week to have your kidney function rechecked. Return for recurrent seizure or other concerns. Clinical Impressions Clinical Impression: Seizure, Acute dehydration Discharge ED Provider: Jose Griggs General Adult [facility] General Chief complaint: Weakness Stated complaint: ams Time Seen by Provider: 07/08/22 14:58 History of Present Illness HPI narrative: Patient presents from local retirement with reported syncopal episode. Staff report possible seizure activity and the patient does give a history of seizures for which she takes Keppra and Topamax. There was reported loss of consciousness. He denies chest pain or shortness of air or focal neurological symptoms and states he feels fine at this time. There is been no recent intercurrent illness reportedly. Related Data Home Medications Medication Instructions Recorded Confirmed albuterol sulfate 90 mcg/actuation 1 puff inhalation QIDP PRN 10/30/21 05/27/22 aerosol inhaler shortness of breath or wheezing carvedilol 6.25 mg tablet 6.25 mg PO BID Hypertension 10/30/21 05/27/22 fluticasone propionate 50 1 spray intranasal DAILY Allergy 10/30/21 05/27/22 mcg/actuation nasal symptoms spray,suspension loratadine 10 mg tablet 10 mg PO DAILY Allergy symptoms 10/30/21 05/27/22 sumatriptan succinate 25 mg tablet 25 mg PO NEEDED PRN Headache 10/30/21 05/27/22 topiramate 25 mg tablet 25 mg PO HS Headache 10/30/21 05/27/22 acetaminophen 500 mg tablet 500 mg PO Q6H PRN 05/27/22 05/27/22 lisinopril 10 mg tablet 10 mg PO DAILY Hypertension 05/27/22 05/27/22 mirtazapine 7.5 mg tablet 7.5 mg PO HS 05/27/22 05/27/22 Previous Rx's Medication Instructions Recorded gabapentin 600 mg tablet 600 mg PO TID #90 tabs 12/09/21 cholecalciferol (vitamin D3) 1,250 1,250 mcg PO WEEKLY Supplement #14 01/21/22 mcg (50,000 unit) capsule caps levetiracetam 500 mg tablet 500 mg PO BID Tremors #180 tabs 03/18/22 bupropion HCl 75 mg tablet See Rx Instructions .Route 04/29/22 .COMPLEX #180 tab
--- NOTE | 2022-07-08 15:14 | PC.NURSE ---
pt to radiology
--- NOTE | 2022-07-08 15:18 | ECG_ITS ---
APPROVED REPORT Exam: Resting ECG HR:87 bpm ECG Measurements Heart Rate 87 AXES [place] 146 P 57 QRSd 92 QRS 55 QT 365 T 42 QTc 410 Conclusion SINUS RHYTHM NORMAL ECG UNCONFIRMED REPORT Electronically signed by : Naveen Beatty MD 07/08/2022 21:14:12
[2022-07-08 15:25] LABS: Basophils # 0.2 K/mm3 (0-0.2); Basophils % 1.1 % (0.1-2.0); Eosinophils # 0.6 K/mm3 (0.0-0.4); Eosinophils % 4.4 % (0.1-12.0); Hematocrit 38.1 % (42.0-52.0); Hemoglobin 12.3 g/dL (14.1-18.0); Lymphocytes # 2.7 K/mm3 (0.7-4.5); Lymphocytes % 19.7 % (10-50); Mean Corpuscular HGB Conc 32.3 g/dL (31.8-35.4); Mean Corpuscular Hemoglobin 32.5 pg (27.0-31.2); Mean Corpuscular Volume 100.7 fl (80-94); Mean Platelet Volume 8.3 fl (7.4-10.4); Monocytes # 0.8 K/mm3 (0.1-1.0); Monocytes % 5.5 % (1.7-9.3); Neutrophils # 9.4 K/mm3 (1.8-7.8); Neutrophils % 69.3 % (37.0-80.0); Platelet Count 275 K/mm3 (142-424); Red Blood Count 3.78 M/mm3 (4.60-6.20); Red Cell Distribution Width 12.7 % (11.5-17.5); White Blood Count 13.6 K/mm3 (4.8-10.8)
[2022-07-08 15:26] LABS: Chloride 102 mmol/L (98-107); Potassium 3.7 mmoL/L (3.5-5.1); Sodium 139 mmol/L (136-145)
[2022-07-08 15:29] LABS: Alanine Aminotransferase 58 U/L (12-78); Albumin Level 4.2 g/dl (3.5-5.0); Albumin/Globulin Ratio 1.2 (1.1-1.8); Alkaline Phosphatase 105 U/L (38-126); Anion Gap 13.7 mEq/L (5-15); Aspartate Amino Transferase 41 U/L (17-59); Bilirubin,Total 0.3 mg/dl (0.2-1.3); Blood Urea Nitrogen 61 mg/dl (9-20); Carbon Dioxide 27 mmol/L (22.0-30.0); Creatinine Clearance Estimated 22 mL/min (50-200); Estimated Glomerular Filt Rate 27 ml/min (>60); GFR (African American) 33 ML/MIN (>60); Globulin 3.5 g/dL (1.3-3.2); Total Protein,Serum 7.7 g/dl (6.3-8.2)
[2022-07-08 15:30] LABS: Calcium 9.1 mg/dl (8.4-10.2); Glucose 121 mg/dl (74-100)
[2022-07-08 15:45] LABS: Troponin I 0.01 ng/ml (0.00-0.034)
--- NOTE | 2022-07-08 16:05 | PC.NURSE ---
ROUNDED ON PT HE STATES HES FINE NO COMPLAINTS AT THIS TIME, CALL LIGHT AT BEDSIDE
--- NOTE | 2022-07-08 17:46 | PC.NURSE ---
ROUNDED ON PT HE IS ASLEEP IN BED,CALL LIGHT AT BEDSIDE
--- NOTE | 2022-07-08 17:57 | PC.NURSE ---
Lab at for repeat BMP
[2022-07-08 18:19] LABS: Anion Gap 9.7 mEq/L (5-15); Blood Urea Nitrogen 61 mg/dl (9-20); Calcium 8.8 mg/dl (8.4-10.2); Carbon Dioxide 29 mmol/L (22.0-30.0); Chloride 103 mmol/L (98-107); Creatinine Clearance Estimated 24 mL/min (50-200); Estimated Glomerular Filt Rate 30 ml/min (>60); GFR (African American) 36 ML/MIN (>60); Glucose 117 mg/dl (74-100); Potassium 3.7 mmoL/L (3.5-5.1); Sodium 138 mmol/L (136-145)
--- NOTE | 2022-07-08 18:30 | PC.NURSE ---
report given to [facility]
--- NOTE | 2022-07-08 18:34 | PC.NURSE ---
Pre-certification request faxed to [employer] for transfer back to [facility]
--- NOTE | 2022-07-08 18:36 | PC.NURSE ---
Pre-certification request was sent successfully.
--- NOTE | 2022-07-08 18:48 | PC.NURSE ---
PT IS SLEEPING,CALL LIGHT AT BEDSIDE
[2022-07-08 19:51] LABS: Troponin I < 0.01 ng/ml (0.00-0.034)
== END 2022-07-08 19:45 | disposition home or self-care (01) ==
PROVIDERS: Emergency Provider Emergency Medicine
DX: R56.9 Unspecified convulsions (principal); E86.0 Dehydration; R01.1 Cardiac murmur, unspecified; Z86.79 Personal history of other diseases of the circulatory system
CPT/HCPCS: 36415; 70450; 80048; 80053; 84484; 85025; 93005; 96361; 96374; 99285; J1953

== ENCOUNTER → 2022-07-25 10:44 | Outpatient (CLI) | payer MEDICARE, SELFPAY | PROVIDERS: PCP Family Medicine; Visit Provider Nurse Practitioner Family | DX: R42 Dizziness and giddiness (principal) | CPT/HCPCS: 93225; 93226 ==

== ENCOUNTER 2022-08-25 11:23 | Inpatient (IN) | payer MEDICARE, SELFPAY ==
[2022-08-25] VITALS (12 sets, daily range): BP systolic 90–153; BP diastolic 54–88; PULSE 96–113; RESP 14–20; TEMP 36.4–37; O2SAT 96–100; BMI 19.2; BMI 18.4
--- NOTE | 2022-08-25 11:40 | XR_ITS ---
FINAL REPORT CLINICAL HISTORY: left foot wound, r/o osteomyelitis vs abscess-- black at big toe and down the 1st metatarsal as well as tips of other toes FINDINGS: LEFT FOOT Three views of the left foot demonstrate no acute fracture or dislocation. The bones are osteopenic. No bony erosion is seen. The joint spaces are preserved. There is soft tissue edema at the 1st digit. IMPRESSION: No acute bony abnormality. No bony erosion identified. Soft tissue edema of the 1st digit. Reviewed, Interpreted and Dictated by Jose Manuel Palafox MD Transcribed by Fern Meade Authenticated and [facility]
[2022-08-25 11:44] LABS: Basophils # 0.1 K/mm3 (0-0.2); Basophils % 0.8 % (0.1-2.0); Eosinophils # 0.6 K/mm3 (0.0-0.4); Eosinophils % 6.4 % (0.1-12.0); Hematocrit 30.9 % (42.0-52.0); Lymphocytes # 1.6 K/mm3 (0.7-4.5); Lymphocytes % 15.7 % (10-50); Mean Corpuscular HGB Conc 32.3 g/dL (31.8-35.4); Mean Corpuscular Hemoglobin 32.4 pg (27.0-31.2); Mean Corpuscular Volume 100.3 fl (80-94); Mean Platelet Volume 7.9 fl (7.4-10.4); Monocytes # 0.7 K/mm3 (0.1-1.0); Monocytes % 6.6 % (1.7-9.3); Neutrophils % 70.5 % (37.0-80.0); Platelet Count 355 K/mm3 (142-424); Red Blood Count 3.08 M/mm3 (4.60-6.20); Red Cell Distribution Width 12.8 % (11.5-17.5); White Blood Count 9.9 K/mm3 (4.8-10.8)
--- NOTE | 2022-08-25 11:44 | PC.NURSE ---
rad at bedside with
--- NOTE | 2022-08-25 11:44 | HMH.EDGENADL ---
Discharge Plan Disposition Chief Complaint: Wound/Laceration Prescriptions Prescriptions: No Action acetaminophen 500 mg tablet 500 mg PO Q6H PRN mirtazapine 7.5 mg tablet 7.5 mg PO HS lisinopril 10 mg tablet 10 mg PO DAILY cholecalciferol (vitamin D3) 1,250 mcg (50,000 unit) capsule 1,250 mcg PO WEEKLY Qty: 14 10RF levetiracetam 500 mg tablet 500 mg PO BID Qty: 180 3RF gabapentin 600 mg tablet 600 mg PO TID Qty: 90 5RF bupropion HCl 75 mg tablet See Rx Instructions .ROUTE .COMPLEX Qty: 180 2RF Dose Instruction: TAKE ONE TABLET BY MOUTH TWICE DAILY Rx Instructions: TAKE ONE TABLET BY MOUTH TWICE DAILY gabapentin 600 mg tablet 600 mg PO TID Qty: 90 5RF diazepam 5 mg tablet 5 mg PO BIDP PRN (Reason: anxiety) Qty: 60 5RF dronabinol [Marinol] 2.5 mg capsule 2.5 mg PO BID Qty: 60 1RF Rx Instructions: administer before lunch and evening meal/dinner 5'8 114 lbs and losing weight hydrocodone-acetaminophen 10-325 mg tablet 1 tab PO Q6H PRN (Reason: pain) Qty: 120 0RF sumatriptan succinate 25 MG tablet 25 mg PO NEEDED PRN (Reason: Headache) Rx Instructions: TAKE 1 TABLET BY MOUTH AT ONSET OF MIGRAINE. MAY REPEAT ONCE AFTER 2 HOURS IF NEEDED -MAX OF 4 TABLETS IN 24 HOURS- topiramate 25 MG tablet 25 mg PO HS fluticasone propionate 16 GM spray,suspension 1 spray NS DAILY loratadine 10 MG tablet 10 mg PO DAILY albuterol sulfate 6.7 GM HFA aerosol inhaler 1 puff IH QIDP PRN (Reason: shortness of breath or wheezing) carvedilol 6.25 MG tablet 6.25 mg PO BID Instructions Patient Instructions: DI for Laceration Repair Discharge ED Provider: Tana Hutchinson General Adult HPI General Chief complaint: Wound/Laceration Stated complaint: left great toe Time Seen by Provider: 08/25/22 11:44 History of Present Illness HPI narrative: 67-year-old male presenting with left foot and great toe of the left foot necrosis and pain. States this been ongoing for several months and worsening. States that Dr. Mcintosh with Dr. Smith's office recently told him that he had peripheral vascular disease and likely would need lower extremity stents. Patient states he had discomfort at rest for an extended period of time he is increasing redness and swelling over his left lower extremity recently with areas of necrosis. Came in today as just progressed to an unbearable nature. Pain is moderate to severe. From chart review I do not see any vascular imaging studies of his lower extremities including any arterial ultrasounds or CT angios with runoff. Related Data Home Medications Medication Instructions Recorded Confirmed albuterol sulfate 90 mcg/actuation 1 puff inhalation QIDP PRN 10/30/21 05/27/22 aerosol inhaler shortness of breath or wheezing carvedilol 6.25 mg tablet 6.25 mg PO BID Hypertension 10/30/21 05/27/22 fluticasone propionate 50 1 spray intranasal DAILY Allergy 10/30/21 05/27/22 mcg/actuation nasal symptoms spray,suspension loratadine 10 mg tablet 10 mg PO DAILY Allergy symptoms 10/30/21 05/27/22 sumatriptan succinate 25 mg tablet 25 mg PO NEEDED PRN Headache 10/30/21 05/27/22 topiramate 25 mg tablet 25 mg PO HS Headache 10/30/21 05/27/22 acetaminophen 500 mg tablet 500 mg PO Q6H PRN 05/27/22 05/27/22 lisinopril 10 mg tablet 10 mg PO DAILY Hypertension 05/27/22 05/27/22 mirtazapine 7.5 mg tablet 7.5 mg PO HS 05/27/22 05/27/22 Previous Rx's Medication Instructions Recorded gabapentin 600 mg tablet 600 mg PO TID #90 tabs 12/09/21 cholecalciferol (vitamin D3) 1,250 1,250 mcg PO WEEKLY Supplement #14 01/21/22 mcg (50,000 unit) capsule caps levetiracetam 500 mg tablet 500 mg PO BID Tremors #180 tabs 03/18/22 bupropion HCl 75 mg tablet See Rx Instructions .Route 04/29/22 .COMPLEX #180 tabs diazepam 5 mg tablet 5 mg PO BIDP PRN anxiety #60 tabs 05/08/22 gabapentin 600 mg tablet 600 mg PO TID
[2022-08-25 11:48] LABS: Alanine Aminotransferase 16 U/L (12-78); Albumin Level 3.8 g/dl (3.5-5.0); Alkaline Phosphatase 128 U/L (38-126); Anion Gap 11.6 mEq/L (5-15); Aspartate Amino Transferase 33 U/L (17-59); Bilirubin,Total 0.3 mg/dl (0.2-1.3); Blood Urea Nitrogen 45 mg/dl (9-20); Carbon Dioxide 24 mmol/L (22.0-30.0); Chloride 105 mmol/L (98-107); Creatinine Clearance Estimated 40 mL/min (50-200); Estimated Glomerular Filt Rate 47 ml/min (>60); GFR (African American) 56 ML/MIN (>60); Globulin 3.9 g/dL (1.3-3.2); Glucose 103 mg/dl (74-100); Potassium 4.6 mmoL/L (3.5-5.1); Sodium 136 mmol/L (136-145); Total Protein,Serum 7.7 g/dl (6.3-8.2)
[2022-08-25 11:53] LABS: C-Reactive Protein 120.2 mg/L (0-4)
--- NOTE | 2022-08-25 11:53 | PC.NURSE ---
paged Dr Smith
--- NOTE | 2022-08-25 11:54 | CT_ITS ---
FINAL REPORT CLINICAL HISTORY: Left foot ischemia/gangrene FINDINGS: Post contrast axial imaging of the aorta and bilateral lower extremity was obtained and reviewed. This study was performed with techniques to keep radiation doses as low as reasonably achievable (ALARA). Individualized dose reduction techniques using automated exposure control or adjustment of mA and/or kV according to the patient's size were employed. There is moderate mural thrombus throughout the abdominal aorta. There is dense calcification within the abdominal aorta and iliac vessels. The abdominal aorta is normal caliber. The celiac axis and SMA are patent. The VERONICA is patent. The renal arteries are patent. There is high-grade stenosis of the proximal right common iliac artery of approximately 90%. Dense calcification extends through the right common iliac artery. There is occlusion of the left common iliac artery. Right: There is 70% stenosis of the right external iliac artery. There is at least 90% stenosis of the mid right SFA. There is segmental occlusion of the distal right SFA measuring 1.2 cm in length. A 2nd segment of the distal SFA near the adductor canal measures less than 1 cm. There is long segment occlusion of the popliteal artery. There is poor contrast delivery to the tibial vessels. Left: There is 70-80% stenosis of the left external iliac artery. There is extensive vascular calcification throughout the left SFA. There are multifocal high-grade stenoses throughout the left SFA. There is occlusion of the left popliteal in the midsection. There is reconstitution of the distal popliteal. There is poor contrast delivery to the tibial vessels with reconstitution of the posterior tibial vessel distally. There is a large soft tissue ulcer of the left great toe. Review of the remaining abdomen and pelvis demonstrates mild patchy airspace opacity in the left lung base that may be due to a small focus of acute pneumonia. The gallbladder is contracted. The liver parenchyma is homogeneous. There are calcified granulomas in the spleen. The adrenal glands are unremarkable. The kidneys are unremarkable. There is a large amount of retained stool in the colon. There is streak artifact from right hip arthroplasty. There is a large fat containing left inguinal hernia extending to the scrotum. IMPRESSION: Extensive complex arterial occlusive disease. Occlusion of the left common iliac and 90% stenosis at the origin of the right common iliac artery. Multifocal high-grade stenoses of the external iliacs bilaterally. Multiple segmental occlusions in the right superficial femoral and popliteal arteries. Segmental occlusion of the left popliteal artery. Patient would benefit from catheter directed angiography given extensive nature of disease. Reviewed, Interpreted and Dictated by Jose Manuel Palafox MD Transcribed by Erasmo Nation Authenticated and . [facility]
--- NOTE | 2022-08-25 12:06 | HMH.ITSTN ---
GFR is 47-- advised ER who is going to give a bag of fluid before scan
[2022-08-25 12:45] LABS: Erythrocyte Sedimentation Rate > 140 mm/hr (0-20)
--- NOTE | 2022-08-25 13:48 | PC.NURSE ---
called for prelim, radiology checking
--- NOTE | 2022-08-25 13:51 | PC.NURSE ---
Dr Hutchinson speaking with Dr Smith
[2022-08-25 14:03] LABS: Coronavirus 19, PCR Not Detected (NotDetected); Influenza A, PCR Not Detected (NotDetected); Influenza B, PCR Not Detected (NotDetected)
--- NOTE | 2022-08-25 14:30 | PC.NURSE ---
called case management for admission
--- NOTE | 2022-08-25 14:39 | PC.NURSE ---
Report called to Chio sibley rn and meng desai, will transport pt when covid screening complete
--- NOTE | 2022-08-25 15:37 | PC.NURSE ---
vascular here for echo
--- NOTE | 2022-08-25 16:27 | PC.NURSE ---
Podiatry at bedside for consultation.
--- NOTE | 2022-08-25 16:52 | EXP.ORTH.CON ---
History of Present Illness *Admission Date: 08/25/22 *Reason for visit:: Left hallux gangrene *History of present illness: Patient is 67-year-old male with a history of peripheral arterial disease who was admitted for left hallux dry gangrene and severe bilateral PVD. Patient reports having history of PVD and seeing Dr. Smith's office outpatient. He is from [facility] and reports right foot wounds being treated by [facility]. Presents with RLE naldo skaggs. [facility] Disclaimer: The information contained in this section may have been updated after the patient was seen, as this information can be updated by other users. Medical History Abnormal electrocardiography Cardiac murmur Chest pain Coronary artery calcification Sinus tachycardia Social History Smoking Status: Never smoker alcohol intake: never substance use type: denies use current occupational status: disabled Travel in the last 8 weeks: None household members: none housing: detention Review of Systems Review of Systems Review of systems:: pertinent systems reviewed and negative unless documented below Constitutional Constitutional: Reports system reviewed and no additional complaints, except as documented and Reports weakness Eyes Eyes: Reports system reviewed and no additional complaints, except as documented ENT Ears, Nose, Mouth, and Throat: Reports system reviewed and no additional complaints, except as documented *Cardiovascular Cardiovascular: Reports system reviewed and no additional complaints, except as documented and Reports acrocyanosis *Respiratory Respiratory: Reports system reviewed and no additional complaints, except as documented *Gastrointestinal Gastrointestinal: Reports system reviewed and no additional complaints, except as documented *Genitourinary Genitourinary: Reports system reviewed and no additional complaints, except as documented *Musculoskeletal Musculoskeletal: Reports system reviewed and no additional complaints, except as documented and Reports radiating pain into limb Integumentary/Breasts Skin/Breast: Reports system reviewed and no additional complaints, except as documented *Neurologic Neurologic: Reports system reviewed and no additional complaints, except as documented, Reports paresthesias and Reports weakness Psychiatric Psychiatric: Reports system reviewed and no additional complaints, except as documented Endocrine Endocrine: Reports system reviewed and no additional complaints, except as documented Hematologic/Lymphatic Hematologic/Lymphatic: Reports system reviewed and no additional complaints, except as documented Allergic/Immunologic Allergic/Immunologic: Reports system reviewed and no additional complaints, except as documented Meds Home Medications and Allergies Home Medications Medication Instructions Recorded Confirmed Type albuterol sulfate 90 mcg/actuation 1 puff inhalation QIDP PRN 10/30/21 05/27/22 History aerosol inhaler shortness of breath or wheezing carvedilol 6.25 mg tablet 6.25 mg PO BID Hypertension 10/30/21 05/27/22 History fluticasone propionate 50 1 spray intranasal DAILY Allergy 10/30/21 05/27/22 History mcg/actuation nasal symptoms spray,suspension loratadine 10 mg tablet 10 mg PO DAILY Allergy symptoms 10/30/21 05/27/22 History sumatriptan succinate 25 mg tablet 25 mg PO NEEDED PRN Headache 10/30/21 05/27/22 History topiramate 25 mg tablet 25 mg PO HS Headache 10/30/21 08/25/22 History gabapentin 600 mg tablet 600 mg PO TID #90 tabs 12/09/21 05/27/22 Rx cholecalciferol (vitamin D3) 1,250 1,250 mcg PO WEEKLY Supplement #14 01/21/22 05/27/22 Rx mcg (50,000 unit) capsule caps levetiracetam 500 mg tablet 500 mg PO BID Tremors #180 tabs 03/18/22 05/27/22 Rx bupropion HCl 75 mg tablet See Rx Instructions .Route 04/29/22 05/27/22 Rx .COMPLEX #180 tabs diazepam 5 mg tablet 5 mg PO
--- NOTE | 2022-08-25 18:16 | PC.NURSE ---
Patient states I am blind and I can't see. DNR verified by Dr. Spencer and Layne RN
--- NOTE | 2022-08-25 19:37 | EXP.HP ---
History of Present Illness *Admission Date: 08/25/22 *Reason for visit:: Foot pain *History of present illness: Mr. Reed is a 67-year-old male with significant past medical history of peripheral artery disease, blindness, seizure disorder, protein calorie malnutrition, hypertension, tobacco use who presented to the ER for worsening foot pain. He is a resident of [facility], has been getting care for arterial wounds on his right foot. States his pain has been going on for several months, worsening in the left foot. Was brought to the ER via EMS after his brother expressed more concern for how bad the necrosis was of his left foot/great toe. He has been told at previous visits with cardiology that he has peripheral vascular disease and would likely need lower extremity stents. He is okay proceeding with this type of procedure if needed to improve blood flow to his legs. On initial evaluation he has increased redness in his left foot and swelling over the midfoot. Left great toe is black/necrotic with gangrene. Pain has progressed to the point that is just unbearable. Denies any new trauma, falls. On evaluation in the ER, patient noted to have elevated inflammatory markers with ESR greater than 140 and CRP of 120. No mykel erosion noted of bone on foot x-ray. Cardiology and podiatry consulted to assist in care. Medicine consulted for admission. After evaluating patient in the ER, he is open to admission for further management. He did express however that he does not want to be resuscitated. Wants to be made DNR. And after discussing possible amputation states that he does not want any parts cut off. Has no desire for amputation. No antibiotics initiated at this time given normal white cell count and no left shift. Denies any shortness of breath, chest pain, nausea, vomiting. His biggest complaint focuses on the pain of his left foot. [facility] Disclaimer: The information contained in this section may have been updated after the patient was seen, as this information can be updated by other users. Medical History Abnormal electrocardiography Cardiac murmur Chest pain Coronary artery calcification Sinus tachycardia Social History Smoking Status: Never smoker alcohol intake: never substance use type: denies use current occupational status: disabled Travel in the last 8 weeks: None household members: none housing: half-way Review of Systems Review of Systems Review of systems (narrative): 14 point review of systems performed, pertinent positives and negatives as per HPI Constitutional Constitutional: Reports weakness *Neurologic Neurologic: Reports system reviewed and no additional complaints, except as documented, Reports paresthesias and Reports weakness Meds Home Medications and Allergies Home Medications Medication Instructions Recorded Confirmed Type albuterol sulfate 90 mcg/actuation 1 puff inhalation QIDP PRN 10/30/21 08/25/22 History aerosol inhaler shortness of breath or wheezing carvedilol 6.25 mg tablet 6.25 mg PO BID Hypertension 10/30/21 08/25/22 History fluticasone propionate 50 1 spray intranasal DAILY Allergy 10/30/21 08/25/22 History mcg/actuation nasal symptoms spray,suspension loratadine 10 mg tablet 10 mg PO DAILY Allergy symptoms 10/30/21 08/25/22 History sumatriptan succinate 25 mg tablet 25 mg PO NEEDED PRN Headache 10/30/21 08/25/22 History topiramate 25 mg tablet 25 mg PO HS Headache 10/30/21 08/25/22 History gabapentin 600 mg tablet 600 mg PO TID #90 tabs 12/09/21 08/25/22 Rx cholecalciferol (vitamin D3) 1,250 1,250 mcg PO WEEKLY Supplement #14 01/21/22 08/25/22 Rx mcg (50,000 unit) capsule caps levetiracetam 500 mg tablet 500 mg PO BID Tremors #180 tabs 03/18/22 08/25/22 Rx bupropion HCl 75 mg tablet See Rx Instructions .Route 04/29/22 08/25/22 Rx .COM
[2022-08-26] VITALS (58 sets, daily range): BP systolic 62–162; BP diastolic 40–109; PULSE 63–109; RESP 14–20; TEMP 36.6–37.1; O2SAT 94–100; BMI 18.1
--- NOTE | 2022-08-26 00:35 | PC.NURSE ---
Pulses are weak to both feet left more than right. Left foot is more cold to the touch than the right.
--- NOTE | 2022-08-26 01:21 | EXP.PN ---
Subjective *Date: 08/26/22 *Time: 09:00 Interval history: No acute events overnight. He is open to having an amputation of his toe now. His pain is in control. Exam Data for Last 24 hours Vital signs and Labs for Last 24 Hours: Temp Pulse Resp BP Pulse Ox 98.6 F 113 H 14 153/85 H 98 08/25/22 20:00 08/25/22 20:00 08/25/22 20:00 08/25/22 20:00 08/25/22 20:00 Laboratory Results - last 24 hr 08/25/22 11:29: WBC 9.9, RBC 3.08 L, Hgb 10.0 L, Hct 30.9 L, MCV 100.3 H, MCH 32.4 H, MCHC 32.3, RDW 12.8, Plt Count 355, MPV 7.9, Neut % (Auto) 70.5, Lymph % (Auto) 15.7, Banks % (Auto) 6.6, Eos % (Auto) 6.4, Baso % (Auto) 0.8, Neut # (Auto) 7.0, Lymph # (Auto) 1.6, Banks # (Auto) 0.7, Eos # (Auto) 0.6 H, Baso # (Auto) 0.1 08/25/22 11:29: Sodium 136, Potassium 4.6, Chloride 105, Carbon Dioxide 24, Anion Gap 11.6, BUN 45 H, Creatinine 1.50 H, Estimated Creat Clear 40, Estimated GFR 47 L, Est GFR ( Amer) 56 L, Glucose 103 H, Calcium 9.0, Total Bilirubin 0.3, AST 33, ALT 16, Alkaline Phosphatase 128 H, Total Protein 7.7, Albumin 3.8, Globulin 3.9 H, Albumin/Globulin Ratio 1.0 L 08/25/22 11:29: ESR > 140 H 08/25/22 11:29: C-Reactive Protein 120.2 H 08/25/22 13:59: SARS-CoV-2 (PCR) Not detected, Influenza A Untype (PCR) Not detected, Influenza Type B (PCR) Not detected I & O for Last 24 hours: Intake & Output 08/23/22 08/24/22 08/25/22 08/26/22 23:59 23:59 23:59 23:59 Intake Total 300 / 300 Output Total 625 / 625 Balance -325 / -325 Weight 56.784 kg Constitutional Constitutional: no acute distress *Routine HEENT Exam Head: Present normocephalic Eye: Present EOMI and PERRL ENT: Present mucous membranes moist *Routine Neck Exam Neck: Present supple; Absent lymphadenopathy *Routine Respiratory Exam Respiratory: Present CTA bilaterally *Routine Cardiovascular Exam Cardiovascular: Present RRR *Routine Abdominal Exam Abdominal: Present soft and normoactive bowel sounds; Absent tenderness *Routine Extremities Exam Extremities: Absent cyanosis, clubbing or edema Comments: Left great toe with large ulcer with eschar. *Routine Skin Exam Skin: Present warm; Absent rash *Routine Neurological Exam Neurological: Present alert and oriented X3 Assessment and Plan *Assessment and plan (1) Gangrene of toe of left foot: Status: Acute Category: Medical Code(s): I96 - Gangrene, not elsewhere classified (2) Right foot ulcer: Status: Acute Qualifiers: Non-pressure ulcer stage: with fat layer exposed Qualified Code(s): L97.512 - Non-pressure chronic ulcer of other part of right foot with fat layer exposed Category: Medical Code(s): L97.519 - Non-pressure chronic ulcer of other part of right foot with unspecified severity (3) Seizure: Status: Acute Category: Medical Code(s): R56.9 - Unspecified convulsions (4) PAD (peripheral artery disease): Status: Chronic Category: Medical Code(s): I73.9 - Peripheral vascular disease, unspecified (5) Coronary artery calcification: Status: Acute Category: Medical Code(s): I25.10 - Atherosclerotic heart disease of [place] coronary artery without angina pectoris; I25.84 - Coronary atherosclerosis due to calcified coronary lesion (6) Tobacco use: Status: Chronic Category: Social Hx Code(s): Z72.0 - Tobacco use (7) Blind: Status: Chronic Qualifiers: Left eye visual impairment category: left - unspecified blindness Right eye visual impairment category: right - unspecified impairment Qualified Code(s): H54.40 - Blindness, one eye, unspecified eye Category: Medical Code(s): H54.7 - Unspecified visual loss (8) Macrocytic anemia: Status: Acute Category: Medical Code(s): D53.9 - Nutritional anemia, unspecified Plan Mr. Reed is a 67 year old male, resident of [facility], with a PMH of periphe
[2022-08-26 06:28] LABS: Basophils # 0.1 K/mm3 (0-0.2); Basophils % 0.8 % (0.1-2.0); Eosinophils # 0.5 K/mm3 (0.0-0.4); Hematocrit 35.3 % (42.0-52.0); Hemoglobin 10.8 g/dL (14.1-18.0); Lymphocytes # 1.8 K/mm3 (0.7-4.5); Lymphocytes % 22.7 % (10-50); Mean Corpuscular HGB Conc 30.5 g/dL (31.8-35.4); Mean Corpuscular Hemoglobin 30.8 pg (27.0-31.2); Mean Corpuscular Volume 101.1 fl (80-94); Mean Platelet Volume 7.4 fl (7.4-10.4); Monocytes # 0.6 K/mm3 (0.1-1.0); Neutrophils % 62.5 % (37.0-80.0); Platelet Count 333 K/mm3 (142-424); Red Blood Count 3.49 M/mm3 (4.60-6.20); Red Cell Distribution Width 12.8 % (11.5-17.5)
[2022-08-26 06:41] LABS: Chloride 106 mmol/L (98-107); Potassium 4.7 mmoL/L (3.5-5.1); Sodium 137 mmol/L (136-145)
[2022-08-26 06:44] LABS: Alanine Aminotransferase 17 U/L (12-78); Albumin Level 3.7 g/dl (3.5-5.0); Albumin/Globulin Ratio 1.1 (1.1-1.8); Alkaline Phosphatase 140 U/L (38-126); Anion Gap 15.7 mEq/L (5-15); Aspartate Amino Transferase 33 U/L (17-59); Bilirubin,Total 0.4 mg/dl (0.2-1.3); Blood Urea Nitrogen 25 mg/dl (9-20); Calcium 9.1 mg/dl (8.4-10.2); Carbon Dioxide 20 mmol/L (22.0-30.0); Cholesterol 163 mg/dl (140-200); Creatinine Clearance Estimated 51 mL/min (50-200); Estimated Glomerular Filt Rate 67 ml/min (>60); GFR (African American) 81 ML/MIN (>60); Globulin 3.4 g/dL (1.3-3.2); Glucose 91 mg/dl (74-100); Total Protein,Serum 7.1 g/dl (6.3-8.2); Triglycerides 133 mg/dl (30-150); VLDL Cholesterol 27 mg/dL (0-40)
[2022-08-26 06:45] LABS: Chol/HDL Ratio 4.5 (1-3.5); HDL Cholesterol 36 mg/dl (40-60); Magnesium 2.1 mg/dl (1.6-2.3)
[2022-08-26 06:53] LABS: C-Reactive Protein 164.1 mg/L (0-4)
[2022-08-26 06:55] LABS: Direct LDL Cholesterol 87.57 mg/dL (100-129)
[2022-08-26 07:11] LABS: Erythrocyte Sedimentation Rate 78 mm/hr (0-20)
--- NOTE | 2022-08-26 08:12 | EXP.CARD.CON ---
History of Present Illness History of Present Illness Consult date: 08/26/22 Requesting physician: Chirag Spencer Chief complaint: Gangrene left great toe Additional Medical History:: 1. Coronary calcification seen on CT of the chest, 2020, asymptomatic 2. 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 Tobacco use, continued A. CT of the lung, 06/20/2020, COPD with centrilobular emphysema and scattered areas of pulmonary fibrosis. Coronary calcification noted. 4. Peripheral arterial disease A. Left great toe gangrene, 08/2022, with x-ray showing no acute bony abnormality. B. Abdominal CTA, 08/25/2022, occlusion of the left common iliac and 90% stenosis at the origin of the right common iliac. Multifocal high-grade stenosis of the external iliacs bilaterally. Multiple segmental occlusions in the right SFA and popliteal arteries. Segmental occlusion of the left popliteal artery. 5. Resident of of [facility] 6. Seizure disorder A. CT of the head, 07/08/2022, chronic findings (atrophy with ventricular enlargement, stable from prior exam). No acute change. Compared to 10/29/2021 7. History of hypertension A. Echocardiogram 10/30/2021, mild LAE, normal LV size, mild concentric LVH, hyperdynamic systolic function with EF greater than 65%. Grade 1 diastolic dysfunction. Mild MR and TR. History of present illness: Mr. Reed is a 67-year-old male with significant past medical history of peripheral artery disease, blindness, seizure disorder, protein calorie malnutrition, hypertension, tobacco use who presented to the ER for worsening foot pain.? He is a resident of [facility], has been getting care for arterial wounds on his right foot.? States his pain has been going on for several months, worsening in the left foot.? Was brought to the ER via EMS after his brother expressed more concern for how bad the necrosis was of his left foot/great toe.? He has been told at previous visits with cardiology that he has peripheral vascular disease and would likely need lower extremity stents.? He is okay proceeding with this type of procedure if needed to improve blood flow to his legs.? On initial evaluation he has increased redness in his left foot and swelling over the midfoot.? Left great toe is black/necrotic with gangrene.? Pain has progressed to the point that is just unbearable.? Denies any new trauma, falls.? On evaluation in the ER, patient noted to have elevated inflammatory markers with ESR greater than 140 and CRP of 120.? No mykel erosion noted of bone on foot x-ray.? Cardiology and podiatry consulted to assist in care.? Medicine consulted for admission. After evaluating patient in the ER, he is open to admission for further management.? He did express however that he does not want to be resuscitated.? Wants to be made DNR.? And after discussing possible amputation states that he does not want any parts cut off.? Has no desire for amputation. No antibiotics initiated at this time given normal white cell count and no left shift.? Denies any shortness of breath, chest pain, nausea, vomiting.? His biggest complaint focuses on the pain of his left foot. The above per Dr. Spencer Cardiology consulted for evaluation of PAD in the setting of dry gangrene of the right great toe. Patient relates pain in that foot for the last 3 to 4 months although review of my office note visit with him in May does not mention any concern for pain in the foot. CT angio of the lower extremities shows extensive peripheral vascular disease. Procedure discussed with the patient including risk and benefits and patient would like to discuss it with his sister prior to consenting to proceed. [facility] Disclaimer: The information contained in this section may have been updated after the patient was seen, as this information can be updated by other users. Medical History Abnormal electrocardiography Card
--- NOTE | 2022-08-26 08:55 | EXP.PHA.CONS ---
Pharmacy Consult Date: 08/26/22 Time: 08:57 Referring provider: DR CRUZ Reason for Consult:: VANCOMYCIN DOSING CONSULT Allergies Allergy/AdvReac Type Severity Reaction Status Date / Time tramadol Allergy Severe Anaphylaxis Verified 05/27/22 13:52 penicillin G [PENICILLIN G] Allergy Mild Verified 05/27/22 13:52 prednisone Allergy Mild hives Verified 05/27/22 13:52 codeine [CODEINE] Allergy Unknown Verified 05/27/22 13:52 Home Medications Medication Instructions Recorded Confirmed Type albuterol sulfate 90 mcg/actuation 1 puff inhalation QIDP PRN 10/30/21 08/25/22 History aerosol inhaler shortness of breath or wheezing carvedilol 6.25 mg tablet 6.25 mg PO BID Hypertension 10/30/21 08/25/22 History fluticasone propionate 50 1 spray intranasal DAILY Allergy 10/30/21 08/25/22 History mcg/actuation nasal symptoms spray,suspension loratadine 10 mg tablet 10 mg PO DAILY Allergy symptoms 10/30/21 08/25/22 History sumatriptan succinate 25 mg tablet 25 mg PO NEEDED PRN Headache 10/30/21 08/25/22 History topiramate 25 mg tablet 25 mg PO HS Headache 10/30/21 08/25/22 History gabapentin 600 mg tablet 600 mg PO TID #90 tabs 12/09/21 08/25/22 Rx cholecalciferol (vitamin D3) 1,250 1,250 mcg PO WEEKLY Supplement #14 01/21/22 08/25/22 Rx mcg (50,000 unit) capsule caps levetiracetam 500 mg tablet 500 mg PO BID Tremors #180 tabs 03/18/22 08/25/22 Rx bupropion HCl 75 mg tablet See Rx Instructions .Route 04/29/22 08/25/22 Rx .COMPLEX #180 tabs diazepam 5 mg tablet 5 mg PO BIDP PRN anxiety #60 tabs 05/08/22 08/25/22 Rx gabapentin 600 mg tablet 600 mg PO TID #90 tabs 05/08/22 08/25/22 Rx acetaminophen 500 mg tablet 500 mg PO Q6H PRN Headache 05/27/22 08/25/22 History lisinopril 10 mg tablet 10 mg PO DAILY Hypertension 05/27/22 08/25/22 History mirtazapine 7.5 mg tablet 7.5 mg PO HS Hypertension 05/27/22 08/25/22 History dronabinol 2.5 mg capsule (Marinol) 2.5 mg PO BID #60 caps 08/07/22 08/25/22 Rx hydrocodone 10 mg-acetaminophen 1 tab PO Q6H PRN pain #120 tabs 08/21/22 08/25/22 Rx 325 mg tablet New Prescriptions to Start Prescriptions: Height: 1.75 m Weight: 55.565 kg Laboratory Results:: Laboratory Results - last 24 hr 08/25/22 11:29: WBC 9.9, RBC 3.08 L, Hgb 10.0 L, Hct 30.9 L, MCV 100.3 H, MCH 32.4 H, MCHC 32.3, RDW 12.8, Plt Count 355, MPV 7.9, Neut % (Auto) 70.5, Lymph % (Auto) 15.7, Dane % (Auto) 6.6, Eos % (Auto) 6.4, Baso % (Auto) 0.8, Neut # (Auto) 7.0, Lymph # (Auto) 1.6, Dane # (Auto) 0.7, Eos # (Auto) 0.6 H, Baso # (Auto) 0.1 08/25/22 11:29: Sodium 136, Potassium 4.6, Chloride 105, Carbon Dioxide 24, Anion Gap 11.6, BUN 45 H, Creatinine 1.50 H, Estimated Creat Clear 40, Estimated GFR 47 L, Est GFR ( Amer) 56 L, Glucose 103 H, Calcium 9.0, Total Bilirubin 0.3, AST 33, ALT 16, Alkaline Phosphatase 128 H, Total Protein 7.7, Albumin 3.8, Globulin 3.9 H, Albumin/Globulin Ratio 1.0 L 08/25/22 11:29: ESR > 140 H 08/25/22 11:29: C-Reactive Protein 120.2 H 08/25/22 13:59: SARS-CoV-2 (PCR) Not detected, Influenza A Untype (PCR) Not detected, Influenza Type B (PCR) Not detected 08/26/22 05:45: WBC 8.0, RBC 3.49 L, Hgb 10.8 L, Hct 35.3 L, MCV 101.1 H, MCH 30.8, MCHC 30.5 L, RDW 12.8, Plt Count 333, MPV 7.4, Neut % (Auto) 62.5, Lymph % (Auto) 22.7, Dane % (Auto) 8.0, Eos % (Auto) 6.0, Baso % (Auto) 0.8, Neut # (Auto) 5.0, Lymph # (Auto) 1.8, Dane # (Auto) 0.6, Eos # (Auto) 0.5 H, Baso # (Auto) 0.1, ESR 78 H 08/26/22 05:45: Sodium 137, Potassium 4.7, Chloride 106, Carbon Dioxide 20 L, Anion Gap 15.7 H, BUN 25 H D, Creatinine 1.10 D, Estimated Creat Clear 51, Estimated GFR 67, Est GFR ( Amer) 81 D, Glucose 91, Calcium 9.1, Magnesium 2.1, Total Bilirubin 0.4, AST 33, ALT 17, Alkaline Phosphatase 140 H, C-Reactive Protein 164.1 H, Total Protein 7.1, Albumin 3.7, Globulin 3.4 H, Albumin/Globulin Ratio 1.1, Triglycerides 133, Cholesterol 163, LDL Cholesterol Direct 87.57 L, VLDL Cholesterol 27, HDL Cholesterol 36 L, Cholesterol/HDL
--- NOTE | 2022-08-26 09:07 | IR_ITS ---
APPROVED REPORT Patient Location: Inpatient PROCEDURES Right femoral arterial access Right retrograde femoral angiogram Catheter placed in the abdominal aorta Abdominal aortography Bilateral iliofemoral angiography Left femoral arterial access Left retrograde femoral angiogram Bare-metal stent deployment to the distal abdominal aorta with reconstruction of the aortic bifurcation Bare-metal stent deployment to the right common iliac artery Bare-metal stent deployment to the left common iliac artery Bare-metal stent deployment to the left external iliac artery INDICATION Sofy claudication class with gangrenous left toe, Peripheral artery disease, Occluded left common and left external iliac artery, Atheromatous stenosis in the right common iliac artery, Distal abdominal aortic stenosis Informed consent was obtained prior to the procedure. COMPLICATIONS None Estimated Blood Loss: Less than 10 mls TECHNIQUE 1% lidocaine used anesthetize the right groin the right femoral artery was accessed via the Salinger technique and a 5 Nepalese sheath was placed in the right femoral artery. Retrograde angiography was performed. An advantage wire was used to traverse the critical stenosis in the right common iliac artery. A pigtail catheter was advanced and distal abdominal aortography with bilateral iliofemoral angiography was performed. At this point 1% lidocaine was used anesthetize the left groin and the left femoral arteries accessed via the Salinger technique. A 6 Nepalese sheath was placed in the left femoral artery. Therapeutic heparin was administered giving a therapeutic ACT. An 8 mm x 37 mm balloon mounted stent was deployed in the right common iliac artery reducing the greater than 90% stenosis to 0%. An advantage wire was used to retrograde dissect into the left common and external iliac artery from the left groin. I was unable to cannulate the distal abdominal aorta using a JR4 6 Nepalese guide catheter. At this point the 6 Nepalese sheath on the right groin was exchanged for a 7 Nepalese sheath and a wire was placed into the true lumen of the abdominal aorta. A 5 Nepalese rim catheter was advanced into the right groin and used to cannulate the left common iliac artery. Wire was used to push through and then it was advanced into the arterial sheath in the left groin. While advancing the wire the sheath was gently removed thereby exposing the wire which was outside of the left groin. The wire was then pulled further out of the left groin and a 6 Nepalese 23 cm sheath was then advanced back into the left common iliac artery. A 7 mm x 60 mm balloon was then advanced and inflated at the ostium of the right common iliac artery stent extending into the aorta and back into the proximal left common iliac artery. This created a channel in the intima which allowed an advantage wire to be introduced into the left groin and then wire into the true lumen of the aorta. Now having to access wires 1 from the right and 1 from the left groin both into the abdominal aorta two 8 mm x 57 mm EV 3 stents were deployed in the distal abdominal aorta extending into the bilateral common iliac arteries at 12 miryam. An additional 8 mm x 57 mm EV 3 stent was placed in the distal left common iliac artery extending to the left external iliac artery. The balloon was then placed into the left external iliac artery distal to the stent and deployed at 4 miryam. This allowed a 7 mm x 40 mm self-expanding stent to be deployed in the left external iliac artery. An additional 7 mm x 40 mm self-expanding stent was then deployed distal to this yet still overlapping it just proximal to the origin of the left common femoral artery. This was successfully deployed
--- NOTE | 2022-08-26 09:10 | ECG_ITS ---
APPROVED REPORT Exam: Resting ECG HR:100 bpm ECG Measurements Heart Rate 100 AXES [place] 147 P 61 QRSd 90 QRS 16 QT 325 T 21 QTc 382 Conclusion SINUS TACHYCARDIA SEPTAL MYOCARDIAL INFARCTION , OF INDETERMINATE AGE [40+ ms Q WAVE IN V1/V2] ABNORMAL ECG UNCONFIRMED REPORT Electronically signed by : Naveen Beatty MD 08/26/2022 21:17:03
--- NOTE | 2022-08-26 09:40 | PC.NURSE ---
patient gone to skilled labor for procedure
--- NOTE | 2022-08-26 09:55 | P.CONPHA_ITS ---
Pharmacy Intervention Comments: Reconciled patient's home medications using list from senior care.
--- NOTE | 2022-08-26 10:44 | DIET.NUTRFU ---
RD interviewed patient and reviewed during IDT huddle. Consulted to review possible malnutrition. Patient does present malnourished, but improving. He has gained wt, up 4# since [facility] admit. He reports improvement in appetite, taking marinol BID at [place] ([facility]) He is also taking fortified milk QID, fortified shake BID and wound medication BID also. Will restart post aniogram. Nursing to upgarde diet post procedure. Denies any chewing or swallowing issues, he will need 1:1 assistance d/t blindness. He is also on remeron which can help appetite. Denies any GI distress. Reviewed his food preferences he dislikes all vegetables, likes all proteins, likes cottage cheese, milk but dislikes yogurt. Likes bananas and grapes. Prefers strawberry milkshakes. Likes mashed potaoes, pasta but dislikes rice. Will need help with menu selection.
[2022-08-26 14:40] LABS: CATHL Activated Clotting Time 206 SEC (74-125)
--- NOTE | 2022-08-26 17:37 | EXP.ORTH.PN ---
Subjective *Date: 08/26/22 *Time: 17:37 Interval history: Patient lying comfortably in bed. Sister at the bedside. Patient still sedated somewhat from the anesthesia today. Denies pain currently. Ortho Exam (Inpt) Vital signs and Labs for Last 24 Hours: Temp Pulse Resp BP Pulse Ox 97.9 F 72 14 99/60 L 96 08/26/22 14:30 08/26/22 15:45 08/26/22 15:45 08/26/22 16:00 08/26/22 14:45 Laboratory Results - last 24 hr 08/26/22 05:45: WBC 8.0, RBC 3.49 L, Hgb 10.8 L, Hct 35.3 L, MCV 101.1 H, MCH 30.8, MCHC 30.5 L, RDW 12.8, Plt Count 333, MPV 7.4, Neut % (Auto) 62.5, Lymph % (Auto) 22.7, [place] % (Auto) 8.0, Eos % (Auto) 6.0, Baso % (Auto) 0.8, Neut # (Auto) 5.0, Lymph # (Auto) 1.8, [place] # (Auto) 0.6, Eos # (Auto) 0.5 H, Baso # (Auto) 0.1, ESR 78 H 08/26/22 05:45: Sodium 137, Potassium 4.7, Chloride 106, Carbon Dioxide 20 L, Anion Gap 15.7 H, BUN 25 H D, Creatinine 1.10 D, Estimated Creat Clear 51, Estimated GFR 67, Est GFR ( Amer) 81 D, Glucose 91, Calcium 9.1, Magnesium 2.1, Total Bilirubin 0.4, AST 33, ALT 17, Alkaline Phosphatase 140 H, C-Reactive Protein 164.1 H, Total Protein 7.1, Albumin 3.7, Globulin 3.4 H, Albumin/Globulin Ratio 1.1, Triglycerides 133, Cholesterol 163, LDL Cholesterol Direct 87.57 L, VLDL Cholesterol 27, HDL Cholesterol 36 L, Cholesterol/HDL Ratio 4.5 H 08/26/22 13:55: Activated Clotting Time 206 H* Temp Pulse Resp BP Pulse Ox 97.5 F L 110 H 18 144/85 H 97 08/25/22 16:17 08/25/22 16:17 08/25/22 16:17 08/25/22 16:17 08/25/22 16:17 Laboratory Results - last 24 hr 08/25/22 11:29: WBC 9.9, RBC 3.08 L, Hgb 10.0 L, Hct 30.9 L, MCV 100.3 H, MCH 32.4 H, MCHC 32.3, RDW 12.8, Plt Count 355, MPV 7.9, Neut % (Auto) 70.5, Lymph % (Auto) 15.7, [place] % (Auto) 6.6, Eos % (Auto) 6.4, Baso % (Auto) 0.8, Neut # (Auto) 7.0, Lymph # (Auto) 1.6, [place] # (Auto) 0.7, Eos # (Auto) 0.6 H, Baso # (Auto) 0.1 08/25/22 11:29: Sodium 136, Potassium 4.6, Chloride 105, Carbon Dioxide 24, Anion Gap 11.6, BUN 45 H, Creatinine 1.50 H, Estimated Creat Clear 40, Estimated GFR 47 L, Est GFR ( Amer) 56 L, Glucose 103 H, Calcium 9.0, Total Bilirubin 0.3, AST 33, ALT 16, Alkaline Phosphatase 128 H, Total Protein 7.7, Albumin 3.8, Globulin 3.9 H, Albumin/Globulin Ratio 1.0 L 08/25/22 11:29: ESR > 140 H 08/25/22 11:29: C-Reactive Protein 120.2 H 08/25/22 13:59: SARS-CoV-2 (PCR) Not detected, Influenza A Untype (PCR) Not detected, Influenza Type B (PCR) Not detected I & O for Labs for Last 24 Hours: Intake & Output 08/24/22 08/25/22 08/26/22 08/27/22 11:59 11:59 11:59 11:59 Intake Total 300 / 300 700 / 700 Output Total 925 / 925 400 / 400 Balance -625 / -625 300 / 300 Weight 130 lb 122 lb 8 oz Intake & Output 08/23/22 08/24/22 08/25/22 08/26/22 11:59 11:59 11:59 11:59 Output Total 625 / 625 Balance -625 / -625 Weight 130 lb 125 lb 3 oz Constitutional: Present no acute distress Head: Present normocephalic Neck: Present normal inspection Respiratory: Present normal respiratory effort and able to speak in complete sentences Cardiac: Present posterior tibial pulses present and pedal pulses present GI: Present soft Rectal (male): Present deferred (male): Present deferred Extremities: Present normal inspection; Absent normal capillary refill Skin: Present intact and warm Neuro: Present Motor Function Intact, Sensory Function Intact, oriented x 3 and moves all extremities Ankle: bilateral: normal inspection and bilateral: tenderness Comment:: Right ankle lateral ulcer: 100% fibrotic, 0.5 x 0.4 x 0.1 cm, full-thickness through skin into subcutaneous tissue. No drainage malodor or signs of infection. Right lateral heel ulcer: Periwound callus noted, wound base 100% fibrotic, 2.0 x 1.3 x 0.3 cm, full-thickness through skin into subcutaneous tissue. No drainage malodor or signs of infection noted. Feet/Toes: bilateral: tenderness and bilateral: wound Assessment and Plan *Assessment and plan (1
--- NOTE | 2022-08-26 19:55 | PC.NURSE ---
upon entering pts room, VS machine shows recent bp's of 60's/30's. manual bp 80/40. Kimberly GUZMAN notified. New orders received and carried out.
[2022-08-26 20:35] LABS: Basophils % 0.5 % (0.1-2.0); Eosinophils # 0.5 K/mm3 (0.0-0.4); Eosinophils % 6.7 % (0.1-12.0); Hematocrit 27.1 % (42.0-52.0); Lymphocytes # 1.4 K/mm3 (0.7-4.5); Lymphocytes % 18.9 % (10-50); Mean Corpuscular Hemoglobin 32.9 pg (27.0-31.2); Mean Corpuscular Volume 99.9 fl (80-94); Mean Platelet Volume 7.8 fl (7.4-10.4); Monocytes # 0.5 K/mm3 (0.1-1.0); Monocytes % 6.5 % (1.7-9.3); Neutrophils % 67.5 % (37.0-80.0); Platelet Count 273 K/mm3 (142-424); Red Blood Count 2.72 M/mm3 (4.60-6.20); Red Cell Distribution Width 12.7 % (11.5-17.5); White Blood Count 7.5 K/mm3 (4.8-10.8)
[2022-08-26 20:46] LABS: Alanine Aminotransferase 16 U/L (12-78); Albumin Level 3.1 g/dl (3.5-5.0); Albumin/Globulin Ratio 0.9 (1.1-1.8); Alkaline Phosphatase 116 U/L (38-126); Anion Gap 13.4 mEq/L (5-15); Aspartate Amino Transferase 32 U/L (17-59); Bilirubin,Total 0.2 mg/dl (0.2-1.3); Blood Urea Nitrogen 24 mg/dl (9-20); Calcium 8.2 mg/dl (8.4-10.2); Carbon Dioxide 19 mmol/L (22.0-30.0); Chloride 110 mmol/L (98-107); Creatinine Clearance Estimated 51 mL/min (50-200); Estimated Glomerular Filt Rate 67 ml/min (>60); GFR (African American) 81 ML/MIN (>60); Globulin 3.4 g/dL (1.3-3.2); Glucose 106 mg/dl (74-100); Potassium 4.4 mmoL/L (3.5-5.1); Sodium 138 mmol/L (136-145); Total Protein,Serum 6.5 g/dl (6.3-8.2)
[2022-08-26 20:49] LABS: Hemoglobin 8.9 g/dL (14.1-18.0)
--- NOTE | 2022-08-26 21:40 | EXP.EVENT.NO ---
PT with notable hypotension post vascular procedure. SBP in the 60s throughout afternoon. Repeat Hgb 8.9 from 10.8. Moderate improvement of BP to SBP 90s after 1 Liter bolus. Spoke to patient about needing blood and was verbally accousted by patient with regards to needing blood. He reports I dont want it, and you can let me Informed patient of benefit of blood products and that if we were to give him blood products, it would improve his outcome. Patient adament about not wanting blood. Informed him I would call his sister to speak to her as well. Attempted to contact sister Maris, and no answer. Voicemail left. Will continue with MIVF and intermittent fluid boluses at this time.
[2022-08-27] VITALS (11 sets, daily range): BP systolic 108–141; BP diastolic 68–78; PULSE 100–120; RESP 16–117; TEMP 36.5–37.4; O2SAT 92–96; BMI 18.9
--- NOTE | 2022-08-27 05:08 | PC.NURSE ---
Pt. got several bolus' of LR at the beginning of the shift for a low bp. He got his abx through the night and asked for a pain pill this morning. No changes noted.
[2022-08-27 06:03] LABS: MANUAL DIFFERENTIAL MANUAL DIFFERENTIAL (MANUAL DIFF)
[2022-08-27 06:05] LABS: Basophils # 0.1 K/mm3 (0-0.2); Basophils % 0.8 % (0.1-2.0); Eosinophils # 0.5 K/mm3 (0.0-0.4); Eosinophils % 5.8 % (0.1-12.0); Hematocrit 29.3 % (42.0-52.0); Hemoglobin 9.3 g/dL (14.1-18.0); Lymphocytes # 1.7 K/mm3 (0.7-4.5); Lymphocytes % 19.5 % (10-50); Mean Corpuscular HGB Conc 31.7 g/dL (31.8-35.4); Mean Corpuscular Hemoglobin 32.3 pg (27.0-31.2); Mean Corpuscular Volume 101.8 fl (80-94); Mean Platelet Volume 7.8 fl (7.4-10.4); Monocytes # 0.6 K/mm3 (0.1-1.0); Monocytes % 6.6 % (1.7-9.3); Neutrophils # 5.8 K/mm3 (1.8-7.8); Neutrophils % 67.3 % (37.0-80.0); Platelet Count 318 K/mm3 (142-424); Red Blood Count 2.88 M/mm3 (4.60-6.20); Red Cell Distribution Width 12.8 % (11.5-17.5); White Blood Count 8.7 K/mm3 (4.8-10.8)
[2022-08-27 06:08] LABS: Chloride 110 mmol/L (98-107)
[2022-08-27 06:09] LABS: Potassium 4.3 mmoL/L (3.5-5.1); Sodium 138 mmol/L (136-145)
[2022-08-27 06:11] LABS: Blood Urea Nitrogen 19 mg/dl (9-20); Creatinine Clearance Estimated 59 mL/min (50-200); Estimated Glomerular Filt Rate 75 ml/min (>60); GFR (African American) 90 ML/MIN (>60)
[2022-08-27 06:12] LABS: Anion Gap 10.3 mEq/L (5-15); Calcium 8.4 mg/dl (8.4-10.2); Carbon Dioxide 22 mmol/L (22.0-30.0); Glucose 93 mg/dl (74-100)
[2022-08-27 06:58] LABS: Anisocytosis 1+; Hypochromasia 1+; Lymphocytes % 23 % (10-50); Monocytes % 5 % (2-9); Neutrophils % 72 % (42-76); Platelet Estimate Normal; Total Cells Counted 100
--- NOTE | 2022-08-27 07:53 | CT_ITS ---
FINAL REPORT TECHNIQUE: Axial images through the abdomen and pelvis were performed without contrast. This study was performed with techniques to keep radiation doses as low as reasonably achievable, (ALARA). Individualized dose reduction techniques using automated exposure control or adjustment of mA and/or kV according to the patient's size were employed. CLINICAL HISTORY: abdominal pain after peripheral angiogram, anemia COMPARISON: None FINDINGS: Abdomen: There is mild atelectasis at the lung base ease. There may be a small focus of airspace opacity at the left base.. The liver parenchyma is homogeneous. The gallbladder is present. Calcified granulomas are noted in the spleen. The pancreas, adrenals and kidneys are unremarkable. Bilateral common iliac stents are noted. Pelvis: The urinary bladder is unremarkable. The appendix is not visualized. There is no pelvic mass or inflammation. There is streak artifact from right hip prosthesis. There is no evidence of retroperitoneal hematoma. There is a large fat containing left inguinal hernia. IMPRESSION: Bilateral common iliac artery stents. Large fat containing inguinal hernia. Small airspace focus at the left base may be due to a small focus of pneumonia or aspiration Reviewed, Interpreted and Dictated by Jose Manuel Palafox MD Transcribed by Jennifer Chavarria Authenticated and . [facility]
--- NOTE | 2022-08-27 08:02 | EXP.CARD.PN ---
Subjective Subjective Date: 08/27/22 Time: 08:02 Principal diagnosis: PAD, gangrene of left great toe Interval history: 67-year-old white male in bed eating breakfast in no acute distress. Patient does complain of discomfort in both thighs/groin area and into the abdomen. Event note from last night reviewed with reports of low blood pressure although there is a concern for subclavian artery stenosis due to significantly elevated blood pressure noted during peripheral procedure yesterday. Systolic blood pressure currently around 100-110 mm Hg Hemoglobin this morning slightly increased from last night at 9.3 with creatinine of 1.[address] Smith will obtain noncontrast CT of the abdomen and pelvis to evaluate for bleeding related to procedure from yesterday. Both feet are warm with faint pulses bilaterally. Exam Data for Last 24 hours Vital signs and Labs for Last 24 Hours: Temp Pulse Resp BP Pulse Ox 97.7 F 113 H 18 108/68 L 95 08/27/22 07:29 08/27/22 07:29 08/27/22 07:29 08/27/22 07:29 08/27/22 07:29 Laboratory Results - last 24 hr 08/26/22 13:55: Activated Clotting Time 206 H* 08/26/22 20:15: WBC 7.5, RBC 2.72 L, Hgb 8.9 L D, Hct 27.1 L, MCV 99.9 H, MCH 32.9 H, MCHC 33.0, RDW 12.7, Plt Count 273, MPV 7.8, Neut % (Auto) 67.5, Lymph % (Auto) 18.9, [place] % (Auto) 6.5, Eos % (Auto) 6.7, Baso % (Auto) 0.5, Neut # (Auto) 5.0, Lymph # (Auto) 1.4, [place] # (Auto) 0.5, Eos # (Auto) 0.5 H, Baso # (Auto) 0.0 08/26/22 20:15: Sodium 138, Potassium 4.4, Chloride 110 H, Carbon Dioxide 19 L, Anion Gap 13.4, BUN 24 H, Creatinine 1.10, Estimated Creat Clear 51, Estimated GFR 67, Est GFR ( Amer) 81, Glucose 106 H, Calcium 8.2 L, Total Bilirubin 0.2, AST 32, ALT 16, Alkaline Phosphatase 116, Total Protein 6.5, Albumin 3.1 L D, Globulin 3.4 H, Albumin/Globulin Ratio 0.9 L 08/27/22 05:42: WBC 8.7, RBC 2.88 L, Hgb 9.3 L, Hct 29.3 L, MCV 101.8 H, MCH 32.3 H, MCHC 31.7 L, RDW 12.8, Plt Count 318, MPV 7.8, Neut % (Auto) 67.3, Lymph % (Auto) 19.5, [place] % (Auto) 6.6, Eos % (Auto) 5.8, Baso % (Auto) 0.8, Neut # (Auto) 5.8, Lymph # (Auto) 1.7, [place] # (Auto) 0.6, Eos # (Auto) 0.5 H, Baso # (Auto) 0.1, Total Counted 100, Neutrophils % (Manual) 72, Lymphocytes % (Manual) 23, Monocytes % (Manual) 5, Platelet Estimate Normal, Hypochromasia 1+, Anisocytosis 1+ 08/27/22 05:42: Sodium 138, Potassium 4.3, Chloride 110 H, Carbon Dioxide 22, Anion Gap 10.3, BUN 19, Creatinine 1.00, Estimated Creat Clear 59, Estimated GFR 75, Est GFR ( Amer) 90, Glucose 93, Calcium 8.4 I & O for Last 24 hours: Intake & Output 08/24/22 08/25/22 08/26/22 08/27/22 11:59 11:59 11:59 11:59 Intake Total 300 / 300 4620 / 4620 Output Total 925 / 925 400 / 400 Balance -625 / -625 4220 / 4220 Weight 130 lb 122 lb 8 oz 128 lb Constitutional Constitutional: no acute distress *Routine Respiratory Exam Respiratory: Present CTA bilaterally *Routine Cardiovascular Exam Cardiovascular: Present RRR *Routine Abdominal Exam Abdominal: Present tenderness Comments: No appreciable hematoma at femoral cath sites with dressings intact without evidence of bleeding *Routine Extremities Exam Extremities: Present edema; Absent cyanosis or clubbing Comments: Dry gangrene of left great toe Progress Note: A&P Assessment and plan (1) PAD (peripheral artery disease): Status: Chronic (2) Peripheral vascular disease: Status: Acute (3) Cellulitis of both feet: Status: Acute (4) Right foot ulcer: Status: Acute (5) Gangrene of toe of left foot: Status: Acute (6) Ischemic necrosis of toe: Status: Acute (7) Cellulitis of left foot: Status: Acute Assessment and Plan Assessment and Plan for All Diagnoses:: 1. PAD with complex stenting of both iliac arteries into the abdominal aorta, 08/26/2022, aspirin and Plavix for 1 month then discontinue aspirin 2. Reported hypotension but with concern for subclavian artery stenosis, will check
--- NOTE | 2022-08-27 08:29 | EXP.ORTH.PN ---
Subjective *Date: 08/27/22 *Time: 13:10 Interval history: Patient lying in bed. Alert and oriented x 3. No acute distress noted. Has been complaining of having pain to his abdomen. Cardiology has ordered CT of abdomen to evaluate for bleeding. When asked if he would consent to left hallux partial amputation, he replied by saying no 3 times and stated that he would want the toe to fall off on its own. No plan for left hallux partial amputation or right foot wound debridement by today. Podiatry will re-evaluate in a.m. Ortho Exam (Inpt) Vital signs and Labs for Last 24 Hours: Temp Pulse Resp BP Pulse Ox 97.7 F 113 H 18 108/68 L 95 08/27/22 07:29 08/27/22 07:29 08/27/22 07:29 08/27/22 07:29 08/27/22 07:29 Laboratory Results - last 24 hr 08/26/22 13:55: Activated Clotting Time 206 H* 08/26/22 20:15: WBC 7.5, RBC 2.72 L, Hgb 8.9 L D, Hct 27.1 L, MCV 99.9 H, MCH 32.9 H, MCHC 33.0, RDW 12.7, Plt Count 273, MPV 7.8, Neut % (Auto) 67.5, Lymph % (Auto) 18.9, [place] % (Auto) 6.5, Eos % (Auto) 6.7, Baso % (Auto) 0.5, Neut # (Auto) 5.0, Lymph # (Auto) 1.4, [place] # (Auto) 0.5, Eos # (Auto) 0.5 H, Baso # (Auto) 0.0 08/26/22 20:15: Sodium 138, Potassium 4.4, Chloride 110 H, Carbon Dioxide 19 L, Anion Gap 13.4, BUN 24 H, Creatinine 1.10, Estimated Creat Clear 51, Estimated GFR 67, Est GFR ( Amer) 81, Glucose 106 H, Calcium 8.2 L, Total Bilirubin 0.2, AST 32, ALT 16, Alkaline Phosphatase 116, Total Protein 6.5, Albumin 3.1 L D, Globulin 3.4 H, Albumin/Globulin Ratio 0.9 L 08/27/22 05:42: WBC 8.7, RBC 2.88 L, Hgb 9.3 L, Hct 29.3 L, MCV 101.8 H, MCH 32.3 H, MCHC 31.7 L, RDW 12.8, Plt Count 318, MPV 7.8, Neut % (Auto) 67.3, Lymph % (Auto) 19.5, [place] % (Auto) 6.6, Eos % (Auto) 5.8, Baso % (Auto) 0.8, Neut # (Auto) 5.8, Lymph # (Auto) 1.7, [place] # (Auto) 0.6, Eos # (Auto) 0.5 H, Baso # (Auto) 0.1, Total Counted 100, Neutrophils % (Manual) 72, Lymphocytes % (Manual) 23, Monocytes % (Manual) 5, Platelet Estimate Normal, Hypochromasia 1+, Anisocytosis 1+ 08/27/22 05:42: Sodium 138, Potassium 4.3, Chloride 110 H, Carbon Dioxide 22, Anion Gap 10.3, BUN 19, Creatinine 1.00, Estimated Creat Clear 59, Estimated GFR 75, Est GFR ( Amer) 90, Glucose 93, Calcium 8.4 I & O for Labs for Last 24 Hours: Intake & Output 08/24/22 08/25/22 08/26/22 08/27/22 23:59 23:59 23:59 23:59 Intake Total 300 / 300 4500 / 4500 120 / 120 Output Total 625 / 625 700 / 700 0 / 0 Balance -325 / -325 3800 / 3800 120 / 120 Weight 125 lb 3 oz 122 lb 8 oz 128 lb Constitutional: Present no acute distress Head: Present normocephalic Neck: Present normal inspection Respiratory: Present normal respiratory effort and able to speak in complete sentences Cardiac: Present Tachycardia and pedal pulses present (diminished) GI: Present other (no obesity) Rectal (male): Present deferred (male): Present deferred Extremities: Present normal capillary refill (sluggish) and calf tenderness (no calf tenderness) Skin: Present dry and wounds (left hallux gangrene refuses to have amputation) Neuro: Present Grossly Intact, oriented x 3 and moves all extremities Ankle: right: tenderness Feet/Toes: bilateral: tenderness and bilateral: wound Comments:: Right ankle lateral ulcer: 100% fibrotic, 0.5 x 0.4 x 0.1 cm, full-thickness through skin into subcutaneous tissue. No drainage malodor or signs of infection. Right lateral heel ulcer: Periwound callus noted, wound base 100% fibrotic, 2.0 x 1.3 x 0.3 cm, full-thickness through skin into subcutaneous tissue. No drainage malodor or signs of infection noted. Feet/Toes: bilateral: tenderness and bilateral: wound Assessment and Plan *Assessment and plan (1) Cellulitis of left foot: Status: Acute Category: Medical Code(s): L03.116 - Cellulitis of left lower limb (2) Gangrene of toe of left foot: Status: Acute Category: Medical Code(s): I96 - Gangrene, not elsewhere classified (3) Right foot ulcer:
--- NOTE | 2022-08-27 08:30 | EXP.PN ---
Subjective *Date: 08/27/22 *Time: 13:43 Interval history: The patient was hypotensive overnight and this resolved after 2L fluid bolus was given. Hgb is stable at 9.3 Exam Data for Last 24 hours Vital signs and Labs for Last 24 Hours: Temp Pulse Resp BP Pulse Ox 97.7 F 113 H 18 108/68 L 95 08/27/22 07:29 08/27/22 07:29 08/27/22 07:29 08/27/22 07:29 08/27/22 07:29 Laboratory Results - last 24 hr 08/26/22 13:55: Activated Clotting Time 206 H* 08/26/22 20:15: WBC 7.5, RBC 2.72 L, Hgb 8.9 L D, Hct 27.1 L, MCV 99.9 H, MCH 32.9 H, MCHC 33.0, RDW 12.7, Plt Count 273, MPV 7.8, Neut % (Auto) 67.5, Lymph % (Auto) 18.9, [place] % (Auto) 6.5, Eos % (Auto) 6.7, Baso % (Auto) 0.5, Neut # (Auto) 5.0, Lymph # (Auto) 1.4, [place] # (Auto) 0.5, Eos # (Auto) 0.5 H, Baso # (Auto) 0.0 08/26/22 20:15: Sodium 138, Potassium 4.4, Chloride 110 H, Carbon Dioxide 19 L, Anion Gap 13.4, BUN 24 H, Creatinine 1.10, Estimated Creat Clear 51, Estimated GFR 67, Est GFR ( Amer) 81, Glucose 106 H, Calcium 8.2 L, Total Bilirubin 0.2, AST 32, ALT 16, Alkaline Phosphatase 116, Total Protein 6.5, Albumin 3.1 L D, Globulin 3.4 H, Albumin/Globulin Ratio 0.9 L 08/27/22 05:42: WBC 8.7, RBC 2.88 L, Hgb 9.3 L, Hct 29.3 L, MCV 101.8 H, MCH 32.3 H, MCHC 31.7 L, RDW 12.8, Plt Count 318, MPV 7.8, Neut % (Auto) 67.3, Lymph % (Auto) 19.5, [place] % (Auto) 6.6, Eos % (Auto) 5.8, Baso % (Auto) 0.8, Neut # (Auto) 5.8, Lymph # (Auto) 1.7, [place] # (Auto) 0.6, Eos # (Auto) 0.5 H, Baso # (Auto) 0.1, Total Counted 100, Neutrophils % (Manual) 72, Lymphocytes % (Manual) 23, Monocytes % (Manual) 5, Platelet Estimate Normal, Hypochromasia 1+, Anisocytosis 1+ 08/27/22 05:42: Sodium 138, Potassium 4.3, Chloride 110 H, Carbon Dioxide 22, Anion Gap 10.3, BUN 19, Creatinine 1.00, Estimated Creat Clear 59, Estimated GFR 75, Est GFR ( Amer) 90, Glucose 93, Calcium 8.4 I & O for Last 24 hours: Intake & Output 08/24/22 08/25/22 08/26/22 08/27/22 23:59 23:59 23:59 23:59 Intake Total 300 / 300 4500 / 4500 120 / 120 Output Total 625 / 625 700 / 700 0 / 0 Balance -325 / -325 3800 / 3800 120 / 120 Weight 56.784 kg 55.565 kg 58.06 kg Constitutional Constitutional: no acute distress *Routine Respiratory Exam Respiratory: Present CTA bilaterally *Routine Cardiovascular Exam Cardiovascular: Present RRR *Routine Abdominal Exam Abdominal: Present tenderness Comments: No appreciable hematoma at femoral cath sites with dressings intact without evidence of bleeding *Routine Extremities Exam Extremities: Present edema; Absent cyanosis or clubbing Comments: Dry gangrene of left great toe Assessment and Plan *Assessment and plan (1) PAD (peripheral artery disease): Status: Chronic Category: Medical Code(s): I73.9 - Peripheral vascular disease, unspecified (2) Peripheral vascular disease: Status: Acute Category: Medical Code(s): I73.9 - Peripheral vascular disease, unspecified (3) Cellulitis of both feet: Status: Acute Category: Medical Code(s): L03.115 - Cellulitis of right lower limb; L03.116 - Cellulitis of left lower limb (4) Right foot ulcer: Status: Acute Qualifiers: Non-pressure ulcer stage: with fat layer exposed Qualified Code(s): L97.512 - Non-pressure chronic ulcer of other part of right foot with fat layer exposed Category: Medical Code(s): L97.519 - Non-pressure chronic ulcer of other part of right foot with unspecified severity (5) Gangrene of toe of left foot: Status: Acute Category: Medical Code(s): I96 - Gangrene, not elsewhere classified (6) Ischemic necrosis of toe: Status: Acute Category: Medical Code(s): I96 - Gangrene, not elsewhere classified (7) Cellulitis of left foot: Status: Acute Category: Medical Code(s): L03.116 - Cellulitis of left lower limb (8) Seizure: Status: Acute Category: Medical
--- NOTE | 2022-08-27 14:09 | PC.NURSE ---
PT IS RESTING IN BED. ALERT AND ORIENTED X3. PT HAS BEEN VERY RELUCTANT WITH CARE THIS SHIFT. PT HAS REFUSED AMPUTATION AT THIS TIME. PT WAS AGREEABLE TO ABDOMINAL CT THIS MORNING HOWEVER WHEN RADIOLOGY CAME THIS AFTERNOON TO TAKE HIM DOWN FOR CHEST CT PT STATED NO, LEAVE ME ALONE. I DON'T WANT TO DO IT . SHON BALDWIN NOTIFIED AND STATED HE WOULD COME AND TALK TO PT.
--- NOTE | 2022-08-27 14:10 | HMH.ITSTN ---
pt refused ct chest with , nicky olmstead in room when patient refused , she was going to let ordering doctor aware
[2022-08-28] VITALS: BP 136/79; PULSE 101; PULSE 90; RESP 16; TEMP 37.2; O2SAT 95
[2022-08-28 04:00] VITALS: BP 103/65; PULSE 100; PULSE 96; RESP 16; TEMP 36.9; O2SAT 97; BMI 19.0
--- NOTE | 2022-08-28 06:24 | PC.NURSE ---
NO ACUTE CHANGES. PT REFUSED LABS THIS AM. ALEPT WELL. MEDICATED X2 THIS SHIFT FOR PAIN. VSS. BED ALARM AND SEIZURE PADS IN PLACE FOR PT SAFETY.
[2022-08-28 07:59] VITALS: BP 102/61; PULSE 102; RESP 18; TEMP 36.7; O2SAT 100
--- NOTE | 2022-08-28 07:59 | PC.NURSE ---
per lukas jorgensen to remove respiratory assistant
[2022-08-28 08:00] VITALS: PULSE 100
--- NOTE | 2022-08-28 08:08 | EXP.ORTH.PN ---
Subjective *Date: 08/28/22 *Time: 08:08 Interval history: Patient resting comfortably lying in bed. He reports no new complaints. Said pain in the feet has improved some. Ortho Exam (Inpt) Vital signs and Labs for Last 24 Hours: Temp Pulse Resp BP Pulse Ox 98.0 F 102 H 18 102/61 L 100 08/28/22 07:59 08/28/22 07:59 08/28/22 07:59 08/28/22 07:59 08/28/22 07:59 I & O for Labs for Last 24 Hours: Intake & Output 08/25/22 08/26/22 08/27/22 08/28/22 11:59 11:59 11:59 11:59 Intake Total 300 / 300 4620 / 4620 1650 / 1650 Output Total 925 / 925 400 / 400 850 / 850 Balance -625 / -625 4220 / 4220 800 / 800 Weight 130 lb 122 lb 8 oz 128 lb 128 lb 3 oz Constitutional: Present no acute distress and chronically ill appearing Head: Present normocephalic Neck: Present normal inspection Respiratory: Present normal respiratory effort and able to speak in complete sentences Cardiac: Present Tachycardia and pedal pulses present (diminished) GI: Present other (no obesity) Extremities: Present normal capillary refill (sluggish) Skin: Present dry and wounds (left hallux gangrene refuses to have amputation) Neuro: Present Grossly Intact, oriented x 3 and moves all extremities Ankle: right: tenderness Feet/Toes: bilateral: tenderness and bilateral: wound Comments:: Right ankle lateral ulcer: 100% fibrotic, 0.5 x 0.4 x 0.1 cm, full-thickness through skin into subcutaneous tissue. No drainage malodor or signs of infection. Right lateral heel ulcer: Periwound callus noted, wound base 100% fibrotic, 2.0 x 1.3 x 0.3 cm, full-thickness through skin into subcutaneous tissue. No drainage malodor or signs of infection noted. Left hallux toenail is gone. Black gangrene with mild cellulitis noted to 1st MPJ. Assessment and Plan *Assessment and plan (1) Cellulitis of left foot: Status: Acute Category: Medical Code(s): L03.116 - Cellulitis of left lower limb (2) Gangrene of toe of left foot: Status: Acute Category: Medical Code(s): I96 - Gangrene, not elsewhere classified (3) Right foot ulcer: Status: Acute Qualifiers: Non-pressure ulcer stage: with fat layer exposed Qualified Code(s): L97.512 - Non-pressure chronic ulcer of other part of right foot with fat layer exposed Category: Medical Code(s): L97.519 - Non-pressure chronic ulcer of other part of right foot with unspecified severity (4) Ischemic necrosis of toe: Status: Acute Category: Medical Code(s): I96 - Gangrene, not elsewhere classified (5) PAD (peripheral artery disease): Status: Chronic Category: Medical Code(s): I73.9 - Peripheral vascular disease, unspecified (6) Peripheral vascular disease: Status: Acute Category: Medical Code(s): I73.9 - Peripheral vascular disease, unspecified (7) Tobacco use: Status: Chronic Category: Social Hx Code(s): Z72.0 - Tobacco use (8) Blind: Status: Chronic Qualifiers: Left eye visual impairment category: left - unspecified blindness Right eye visual impairment category: right - unspecified impairment Qualified Code(s): H54.40 - Blindness, one eye, unspecified eye Category: Medical Code(s): H54.7 - Unspecified visual loss Plan Right lateral foot, ankle ulcers: -Wounds x 2. No debridement today. -Dressing applied: PolyMem -Wound care instructions given: nursing to change dressing daily -Offload heels, foot with pillows -Call the office immediately if pain increases or signs of infection worsen -Daily dressing changes per nursing: polymem to lateral, Allevyn pad Left hallux gangrene: -Reviewed x-rays, labs and ABIs -ABIs show critical limb ischemia bilaterally: FLOR R 0.34, L 0.30 -Discussed reason for the consult was for gangrene and possible amputation -Reexplained results of the procedure with the patient. Patient still refusing to have amputatio
--- NOTE | 2022-08-28 08:09 | EXP.CARD.PN ---
Subjective Subjective Date: 08/28/22 Time: 08:09 Principal diagnosis: PAD, gangrene of left great toe Interval history: 67-year-old white male in bed in no acute distress. Eating breakfast. States his legs feel fine. Discussed recommendation for CT angio of the chest to evaluate for subclavian artery stenosis but patient again declines. States he understands we are trying to help him but he does not want any further testing. Exam Data for Last 24 hours Vital signs and Labs for Last 24 Hours: Temp Pulse Resp BP Pulse Ox 98.0 F 102 H 18 102/61 L 100 08/28/22 07:59 08/28/22 07:59 08/28/22 07:59 08/28/22 07:59 08/28/22 07:59 I & O for Last 24 hours: Intake & Output 08/25/22 08/26/22 08/27/22 08/28/22 11:59 11:59 11:59 11:59 Intake Total 300 / 300 4620 / 4620 1650 / 1650 Output Total 925 / 925 400 / 400 850 / 850 Balance -625 / -625 4220 / 4220 800 / 800 Weight 130 lb 122 lb 8 oz 128 lb 128 lb 3 oz Constitutional Constitutional: no acute distress *Routine Respiratory Exam Respiratory: Present CTA bilaterally *Routine Cardiovascular Exam Cardiovascular: Present RRR *Routine Extremities Exam Extremities: Absent edema Comments: Bilateral feet are warm to touch with faint pulses bilaterally. Left great toe gangrene noted *Routine Neurological Exam Neurological: Present alert and oriented X3 Progress Note: A&P Assessment and plan (1) PAD (peripheral artery disease): Status: Chronic (2) Peripheral vascular disease: Status: Acute (3) Cellulitis of both feet: Status: Acute (4) Right foot ulcer: Status: Acute (5) Gangrene of toe of left foot: Status: Acute (6) Ischemic necrosis of toe: Status: Acute (7) Cellulitis of left foot: Status: Acute (8) Seizure: Status: Acute (9) Coronary artery calcification: Status: Acute (10) Tobacco use: Status: Chronic (11) Blind: Status: Chronic (12) Macrocytic anemia: Status: Acute Assessment and Plan Assessment and Plan for All Diagnoses:: 1. PAD with complex stenting of both iliac arteries into the abdominal aorta, 08/26/2022, aspirin and Plavix for 1 month then discontinue aspirin 2. Reported hypotension but with concern for subclavian artery stenosis, patient refuses further evaluation. 3. Abdominal pain after peripheral angiogram yesterday, no evidence of retroperitoneal hemorrhage on CT of the abdomen/pelvis, 08/27/2022 4. Dry gangrene of the left great toe 5. Blind 6. History of seizure disorder 7. History of coronary calcifications on CT in 2020, asymptomatic 8. Macrocytic anemia with hemoglobin drop from 10.6 down to 9.3 this morning 9. Hypertension, currently on Coreg and lisinopril. Stable from a cardiac standpoint for discharge home. Home medication recommendations: Aspirin 81 mg daily (discontinue after 30 days) Plavix 75 mg daily Recommend resuming Coreg at the lower dose of 3.125 mg twice daily along with lisinopril at 2.5 mg daily Add atorvastatin 40 mg daily due to poly vascular disease Follow-up in our office in 1 to 2 weeks
--- NOTE | 2022-08-28 08:18 | EXP.PHA.PN ---
Subjective *Date: 08/28/22 *Time: 08:18 Medical Exam Vital signs and Labs for Last 24 Hours: Vital Signs Temp Pulse Pulse Resp BP Pulse Ox 08/28/22 07:59 98.0 F 102 H 18 102/61 L 100 08/28/22 04:00 100 H 08/28/22 04:00 98.5 F 96 H 16 103/65 L 97 08/28/22 00:00 90 08/28/22 00:00 98.9 F 101 H 16 136/79 95 08/27/22 20:00 100 H 08/27/22 20:00 94 L 08/27/22 19:59 104 H 08/27/22 19:50 98.7 F 18 113/72 94 L 08/27/22 16:00 106 H 08/27/22 15:19 97.7 F 110 H 138/70 96 08/27/22 12:00 120 H 08/27/22 11:18 99.2 F 117 H 141/74 H 96 Intake and Output 08/27/22 08/28/22 08/28/22 23:59 07:59 15:59 Intake Total 120 / 1410 360 / 360 Output Total 400 / 500 450 / 450 Balance -280 / 910 -90 / -90 Intake: Intake, Oral Amount 120 / 240 360 / 360 Output: Output, Urine Amount 400 / 500 450 / 450 Other: Number of Unmeasured Voids 0 1 Weight 58.145 kg Patient Weight 08/28/22 23:59 Weight 58.145 kg I & O for Labs for Last 24 Hours: Intake & Output 08/25/22 08/26/22 08/27/22 08/28/22 23:59 23:59 23:59 23:59 Intake Total 300 / 300 4500 / 4500 1410 / 1410 360 / 360 Output Total 625 / 625 700 / 700 400 / 500 450 / 450 Balance -325 / -325 3800 / 3800 1010 / 910 -90 / -90 Weight 56.784 kg 55.565 kg 58.06 kg 58.145 kg The patient's infection will respond to the chosen ABx?: Yes Is the patient receiving the right drug, dose, and route?: Yes Could a more targeted ABx be ordered?: No (PATIENT AFEBRILE, WBC WNL, BLOOD AND WOUND CX -)
--- NOTE | 2022-08-28 08:51 | EXP.PN ---
Subjective *Date: 08/28/22 *Time: 08:51 Interval history: The patient refused amputation of his left hallux and right foot wound debridement. Abd/pel ct revealed a large fat containing inguinal hernia Exam Data for Last 24 hours Vital signs and Labs for Last 24 Hours: Temp Pulse Resp BP Pulse Ox 98.0 F 102 H 18 102/61 L 100 08/28/22 07:59 08/28/22 07:59 08/28/22 07:59 08/28/22 07:59 08/28/22 07:59 I & O for Last 24 hours: Intake & Output 08/25/22 08/26/22 08/27/22 08/28/22 23:59 23:59 23:59 23:59 Intake Total 300 / 300 4500 / 4500 1410 / 1410 360 / 360 Output Total 625 / 625 700 / 700 400 / 500 450 / 450 Balance -325 / -325 3800 / 3800 1010 / 910 -90 / -90 Weight 56.784 kg 55.565 kg 58.06 kg 58.145 kg Assessment and Plan *Assessment and plan (1) PAD (peripheral artery disease): Status: Chronic Category: Medical Code(s): I73.9 - Peripheral vascular disease, unspecified (2) Peripheral vascular disease: Status: Acute Category: Medical Code(s): I73.9 - Peripheral vascular disease, unspecified (3) Cellulitis of both feet: Status: Acute Category: Medical Code(s): L03.115 - Cellulitis of right lower limb; L03.116 - Cellulitis of left lower limb (4) Right foot ulcer: Status: Acute Qualifiers: Non-pressure ulcer stage: with fat layer exposed Qualified Code(s): L97.512 - Non-pressure chronic ulcer of other part of right foot with fat layer exposed Category: Medical Code(s): L97.519 - Non-pressure chronic ulcer of other part of right foot with unspecified severity (5) Gangrene of toe of left foot: Status: Acute Category: Medical Code(s): I96 - Gangrene, not elsewhere classified (6) Ischemic necrosis of toe: Status: Acute Category: Medical Code(s): I96 - Gangrene, not elsewhere classified (7) Cellulitis of left foot: Status: Acute Category: Medical Code(s): L03.116 - Cellulitis of left lower limb (8) Seizure: Status: Acute Category: Medical Code(s): R56.9 - Unspecified convulsions (9) Coronary artery calcification: Status: Acute Category: Medical Code(s): I25.10 - Atherosclerotic heart disease of [place] coronary artery without angina pectoris; I25.84 - Coronary atherosclerosis due to calcified coronary lesion (10) Tobacco use: Status: Chronic Category: Social Hx Code(s): Z72.0 - Tobacco use (11) Blind: Status: Chronic Qualifiers: Left eye visual impairment category: left - unspecified blindness Right eye visual impairment category: right - unspecified impairment Qualified Code(s): H54.40 - Blindness, one eye, unspecified eye Category: Medical Code(s): H54.7 - Unspecified visual loss (12) Macrocytic anemia: Status: Acute Category: Medical Code(s): D53.9 - Nutritional anemia, unspecified Plan Mr. Reed is a 67 year old male, resident of [facility], with a PMH of peripheral artery disease, blindness, seizure disorder, protein calorie malnutrition, hypertension and tobacco abuse. He presented with worsening foot pain and admitted on 08/25/22 with gangrene of the great left toe. ABIs revealed critical limb ischemia bilaterally; R 0.34, and L 0.30. Podiatry recommended offloading heels. Empiric antibiotics were started. #gangrene of the left great toe #peripheral artery disease s/p stenting of bilateral iliac arteries #JASPAL, resolved #hypovolemic hypotension, resolved I will discontinue the patient's home medications, lisinopril and carvedilol. Appreciate Cardiology and Podiatry. Continuing vancomycin (pharmacy dosing) and cefepime. He had complex stenting of both iliac arteries into the abdominal aorta yesterday 08/26; Cardiology recommended aspirin/plavix x 1 month then to discontinue aspirin. Cardiology ordered a CT abd/pel because
[2022-08-28 09:55] LABS: MANUAL DIFFERENTIAL MANUAL DIFFERENTIAL (MANUAL DIFF)
[2022-08-28 10:07] LABS: Basophils % 0.4 % (0.1-2.0); Eosinophils # 0.6 K/mm3 (0.0-0.4); Eosinophils % 7.4 % (0.1-12.0); Hematocrit 28.8 % (42.0-52.0); Hemoglobin 8.9 g/dL (14.1-18.0); Lymphocytes # 1.7 K/mm3 (0.7-4.5); Lymphocytes % 21.6 % (10-50); Mean Corpuscular HGB Conc 30.9 g/dL (31.8-35.4); Mean Corpuscular Hemoglobin 30.6 pg (27.0-31.2); Mean Platelet Volume 6.8 fl (7.4-10.4); Monocytes # 0.5 K/mm3 (0.1-1.0); Monocytes % 6.4 % (1.7-9.3); Neutrophils # 5.1 K/mm3 (1.8-7.8); Neutrophils % 64.1 % (37.0-80.0); Platelet Count 330 K/mm3 (142-424); Red Cell Distribution Width 12.7 % (11.5-17.5); White Blood Count 7.9 K/mm3 (4.8-10.8)
[2022-08-28 10:10] LABS: Chloride 109 mmol/L (98-107); Potassium 3.6 mmoL/L (3.5-5.1); Sodium 139 mmol/L (136-145)
[2022-08-28 10:13] LABS: Anion Gap 8.6 mEq/L (5-15); Blood Urea Nitrogen 15 mg/dl (9-20); Calcium 8.4 mg/dl (8.4-10.2); Carbon Dioxide 25 mmol/L (22.0-30.0); Creatinine Clearance Estimated 59 mL/min (50-200); Estimated Glomerular Filt Rate 84 ml/min (>60); GFR (African American) 102 ML/MIN (>60); Glucose 103 mg/dl (74-100)
[2022-08-28 10:54] LABS: Lymphocytes % 16 % (10-50); Monocytes % 2 % (2-9); Neutrophils % 82 % (42-76); Platelet Estimate Normal; RBC Morphology Normal; Total Cells Counted 100
[2022-08-28 10:59] VITALS: BP 129/76; PULSE 103; RESP 18; TEMP 37.1; O2SAT 97
--- NOTE | 2022-08-28 11:46 | EXP.DC.SUM ---
General Admission date:: 08/25/22 Discharge date: 08/28/22 HPI HPI HPI: Mr. Reed is a 67-year-old male with significant past medical history of peripheral artery disease, blindness, seizure disorder, protein calorie malnutrition, hypertension, tobacco use who presented to the ER for worsening foot pain. He is a resident of [facility], has been getting care for arterial wounds on his right foot. States his pain has been going on for several months, worsening in the left foot. Was brought to the ER via EMS after his brother expressed more concern for how bad the necrosis was of his left foot/great toe. He has been told at previous visits with cardiology that he has peripheral vascular disease and would likely need lower extremity stents. He is okay proceeding with this type of procedure if needed to improve blood flow to his legs. On initial evaluation he has increased redness in his left foot and swelling over the midfoot. Left great toe is black/necrotic with gangrene. Pain has progressed to the point that is just unbearable. Denies any new trauma, falls. On evaluation in the ER, patient noted to have elevated inflammatory markers with ESR greater than 140 and CRP of 120. No mykel erosion noted of bone on foot x-ray. Cardiology and podiatry consulted to assist in care. Medicine consulted for admission. After evaluating patient in the ER, he is open to admission for further management. He did express however that he does not want to be resuscitated. Wants to be made DNR. And after discussing possible amputation states that he does not want any parts cut off. Has no desire for amputation. No antibiotics initiated at this time given normal white cell count and no left shift. Denies any shortness of breath, chest pain, nausea, vomiting. His biggest complaint focuses on the pain of his left foot. Hospital Course Hospital Course Hospital Course: Mr. Reed is a 67 year old male, resident of [facility], with a PMH of peripheral artery disease, blindness, seizure disorder, protein calorie malnutrition, hypertension and tobacco abuse. He presented with worsening foot pain and admitted on 08/25/22 with dry gangrene of the great left toe. ABIs revealed critical limb ischemia bilaterally; R 0.34, and L 0.30. He had complex stenting of bilateral iliac arteries into the abdominal aorta on 08/26/22. There were cellulitic changes to bilateral feet that responded well to IV antibiotics. He received IV vancomycin and cefepime throughout the hospital course. Podiatry recommended amputation of his left hallux and right foot wound debridement but the patient refused. Podiatry provided wound care instructions for daily polymem to R ankle and Allevyn to R heel. Cardiology recommended aspirin/plavix and to discontinue aspirin after a month. Cardiology also started the patient on atorvastatin and decreased his dose of lisinopril. The patient will be discharging back to [facility] and will need to take 10 days of cephalexin and doxycycline. He will need to follow up with Podiatry in 1-2 weeks and Cardiology in 1-2 weeks. A hospice referral was ordered. #dry gangrene of the left great toe #R foot wound #cellulitis of bilateral feet #peripheral artery disease s/p stenting of bilateral iliac arteries #JASPAL, resolved #hypovolemic hypotension, resolved Exam Data for Last 24 hours Vital signs and Labs for Last 24 Hours: Temp Pulse Resp BP Pulse Ox 98.7 F 103 H 18 129/76 97 08/28/22 10:59 08/28/22 10:59 08/28/22 10:59 08/28/22 10:59 08/28/22 10:59 Laboratory Results - last 24 hr 08/28/22 09:43: WBC 7.9, RBC 2.90 L, Hgb 8.9 L, Hct 28.8 L, MCV 99.0 H, MCH 30.6, MCHC 30.9 L, RDW 12.7, Plt Count 330, MPV 6.8 L, Neut % (Auto) 64.1, Lymph % (Auto) 21.6, Heard % (Auto) 6.4, Eos % (Auto) 7.4, Baso % (Auto) 0.4, Neut # (Auto) 5.1, Lymph # (Auto) 1.7, Heard # (Auto) 0.5, Eos # (Auto) 0.6 H, Baso # (Auto) 0.0, Total Counted 100, Ne
--- NOTE | 2022-08-28 14:06 | CARE MANAGER ---
Patient is an ICF bed @ [facility]. I spoke with Bre upon admission and faxed clinical. He is discharging back to there today with a hospice consult. I faxed consult to [facility], and they will see patient once he's back at [facility]. No COVID swab needed prior to discharge. Family transporting patient.
--- NOTE | 2022-08-29 14:26 | CARE MANAGER ---
Spoke with patient nurse at [facility] for post-hospital phone interview, no issues noted.
== END 2022-08-28 13:20 | DRG 253 ==
LOC: ER 14:06 → 2ND 14:46
PROVIDERS: Internal Medicine; Nurse Practitioner Acute Care; Admitting Provider Internal Medicine Adolescent Medicine; Emergency Provider Student in an Organized Health Care Education/Training Program; PCP Nurse Practitioner Family; Visit Provider Internal Medicine Adolescent Medicine
PROC: 04HD3DZ Insertion of Intraluminal Device into Left Common Iliac Artery, Percutaneous Approach (ICD-10-PCS; principal; 2022-08-26 10:00)
DX: I70.213 Atherosclerosis of native arteries of extremities with intermittent claudication, bilateral legs (principal); E46 Unspecified protein-calorie malnutrition; I70.268 Atherosclerosis of native arteries of extremities with gangrene, other extremity; L03.116 Cellulitis of left lower limb; N17.9 Acute kidney failure, unspecified; Z68.1 Body mass index [BMI] 19.9 or less, adult; L03.115 Cellulitis of right lower limb; I77.1 Stricture of artery; G40.909 Epilepsy, unspecified, not intractable, without status epilepticus; L97.512 Non-pressure chronic ulcer of other part of right foot with fat layer exposed; I10 Essential (primary) hypertension; E78.5 Hyperlipidemia, unspecified; H54.40 Blindness, one eye, unspecified eye; G62.9 Polyneuropathy, unspecified; G89.29 Other chronic pain; D53.9 Nutritional anemia, unspecified; I95.89 Other hypotension; D50.9 Iron deficiency anemia, unspecified
CPT/HCPCS: 36415; 37221; 37223; 37236; 73630; 74176; 75635; 80048; 80053; 80061; 83735; 85007; 85014; 85018; 85025; 85048; 85049; 85347; 85651; 86140; 87081; 93005; 99152; 99153; 99285; C1725; C1769; C1876; C1894; C9803; J0692; J1644; J2720; J3370; Q9966; Q9967; U0003; U0005